=== PATIENT | female | born 1960 | race American Indian/Alaskan Native ===

== ENCOUNTER 2016-10-26 11:58 | Inpatient (IN) | payer MEDICARE ==
[2016-10-26 11:58] VITALS: BMI 30.1
[2016-10-26] MEDS ORDERED: Albuterol-Ipratrop 3 mg / 0.5 (3 ml) UD ONE ×3 (12:11→16:26)
[2016-10-26] MEDS ORDERED: Albuterol-Ipratrop 3 mg / 0.5 (3 ml) UD INH STA ×2 (12:21→14:26)
[2016-10-26 12:53] LABS: BASO % 0.8 % (0.0-2.0); EOS # 0.5 K/uL (0.0-0.7); EOS % 9.7 % (0.0-4.0); HEMATOCRIT 35.8 % (34.0-47.0); LYMPH # 1.6 K/uL (1.0-4.3); LYMPH % 31.9 % (20.0-40.0); MEAN CORPUSCULAR HGB CONC 32.6 g/dL (33.0-37.0); MEAN PLATELET VOLUME 6.6 fl (7.2-11.7); MONO # 0.8 K/uL (0.0-0.8); MONO % 15.2 % (0.0-10.0); NEUT # 2.1 K/uL (1.8-7.0); NEUT % 42.4 % (50.0-75.0); NRBC % 0.1 % (0.0-0.0); RED CELL DISTRIBUTION WIDTH 13.8 % (11.5-14.5)
[2016-10-26 13:06] LABS: ALB/GLOB RATIO 0.9 (1.0-2.1); ALKALINE PHOSPHATASE 108 U/L (38-126); ALT/SGPT 29 U/L (9-52); AST/SGOT 41 U/L (14-36); BILIRUBIN,TOTAL 0.6 mg/dl (0.2-1.3); BLOOD UREA NITROGEN 10 mg/dl (7-17); CARBON DIOXIDE 27 mmol/L (22-30); CHLORIDE 105 mmol/L (98-107); GFR AFRICAN-AMERICAN > 60; GLUCOSE,RANDOM 87 mg/dL (65-105); POTASSIUM 3.6 MMOL/L (3.6-5.0); SODIUM 143 mmol/l (132-148); TOTAL PROTEIN 8.9 G/DL (6.3-8.2)
[2016-10-26] MEDS ORDERED: Magnesium Sulfate 2 gm/50 ml 2 GM/50 ML BAG ONE (14:22)
[2016-10-26] MEDS ORDERED: Magnesium Sulfate 2 gm/50 ml 2 GM/50 ML BAG IVPB ONE (14:26)
--- NOTE | 2016-10-26 15:01 | RAD ---
HISTORY: SOB COMPARISON: Comparison is made to 05/23/2016. FINDINGS: LUNGS: No active pulmonary disease. PLEURA: No significant pleural effusion identified, no pneumothorax apparent. CARDIOVASCULAR: Normal. OSSEOUS STRUCTURES: No significant abnormalities. VISUALIZED UPPER ABDOMEN: Normal. OTHER FINDINGS: None. IMPRESSION: No active disease.
--- NOTE | 2016-10-26 15:19 | ED PDOC ---
HPI: SOB/CHF/COPD Time Seen by Provider: 10/26/16 12:20 Chief Complaint (Nursing): Shortness Of Breath Chief Complaint (Provider): Shortness Of Breath History Per: Patient History/Exam Limitations: no limitations Onset/Duration Of Symptoms: Days (x3 days) Current Symptoms Are (Timing): Still Present Additional Complaint(s): 56 y/o female with a past medical history of human immunodeficiency virus (HIV) and asthma who presents to the emergency department with a complaint of worsening shortness of breath, cough, wheezing, and chest tightness ongoing x3 days. Patient was referred to the ED from integrity specialist Dr. Yee. Reports taking antiretroviral medicine for HIV. Denies history of intubation for asthma , fever, hemoptysis, or syncope. Past Medical History Reviewed: Historical Data, Nursing Documentation, Vital Signs Vital Signs: Last Vital Signs Temp 98.3 F 10/26/16 12:11 Pulse 101 H 10/26/16 12:11 Resp 24 10/26/16 12:11 BP 130/53 L 10/26/16 12:11 Pulse Ox 100 10/26/16 12:30 - Medical History PMH: Anemia, Asthma, Bronchitis, COPD, HIV, Pneumonia Denies: Arthritis, CHF, HTN, Hypercholesterolemia, Hypothyroidism, Chronic Kidney Disease, Rheumatoid Arthritis - Surgical History Surgical History: Cholecystectomy (X1) - Family History Family History: States: Unknown Family Hx - Social History Current smoker - smoking cessation education provided: No Alcohol: None Drugs: Denies - Home Medications Home Medications: Ambulatory Orders Medication Instructions Recorded Albuterol 0.083% [Albuterol 0.083% 3 ml IH Q8H PRN 05/23/16 Inhal Lily (2.5 mg/3 ml) UD] Albuterol HFA [Ventolin HFA 90 2 puff IH Q4H PRN 05/23/16 mcg/actuation (8 g)] Dolutegravir Sodium [Tivicay] 50 mg PO DAILY 05/23/16 Emtricitabine/Tenofovir (Tdf) 1 tab PO DAILY 05/23/16 [Truvada 200 mg-300 mg Tablet] Ferrous Sulfate [Feosol] 325 mg PO DAILY 05/23/16 Montelukast [Singulair] 10 mg PO HS 05/23/16 Sulfamethoxazole/Trimethoprim 1 tab PO HS 05/23/16 [Bactrim DS Tab] Cholecalciferol [Vitamin D 1000 IU] 1,000 unit PO DAILY 10/26/16 Docusate [Colace] 100 mg PO HS 10/26/16 Fluticasone/Vilanterol [Breo 1 puff IH DAILY 10/26/16 Ellipta 100-25 Mcg INH] Oxcarbazepine [Trileptal] 150 mg PO BID 10/26/16 Promethazine [Phenergan Syrup] 10 mg PO Q6H PRN 10/26/16 Roflumilast [Daliresp] 500 mcg PO DAILY 10/26/16 - Allergies Allergies/Adverse Reactions: Allergies Allergy/AdvReac Type Severity Reaction Status Date / Time procaine HCl [From Novocain] Allergy RASH Verified 10/26/16 12:11 shrimp Allergy RASH Verified 10/26/16 12:11 Review of Systems Constitutional: Negative for: Fever Cardiovascular: Positive for: Other (Chest tightness) Respiratory: Positive for: Cough, Shortness of Breath, Wheezing. Negative for: Hemoptysis Neurological: Negative for: Other (Syncope) Physical Exam - Reviewed Nursing Documentation Reviewed: Yes Vital Signs Reviewed: Yes - Physical Exam Appears: Positive for: Non-toxic, No Acute Distress Head Exam: Positive for: ATRAUMATIC, NORMAL INSPECTION, NORMOCEPHALIC Skin: Positive for: Normal Color, Warm, Dry Cardiovascular/Chest: Positive for: Regular Rate, Rhythm, Other (Chest tightness ). Negative for: Murmur Respiratory: Positive for: Wheezing (b/l chest wheezing with chest tightness), Respiratory Distress (Mild). Negative for: Normal Breath Sounds, Accessory Muscle Use Neurologic/Psych: Positive for: Alert, Oriented, Other (Speaking in partial sentences. ) - Laboratory Results Result Diagrams: 10/26/16 12:35 10/26/16 12:35 - ECG O2 Sat by Pulse Oximetry: 99 (RA) Pulse Ox Interpretation: Normal Medical Decision Making Medical Decision Making: Time: 12:20 Initial impression: Shortness of breath Initial plan: --Electrocardiogram STAT --EKG-ED (EDNURTX) --Chest Portable --Duoneb 3 mg/0.5 mg (3ml) UD --Methylprednisolone 125 mg IVP --Peak Flow Pre/Post TX --Revaluation Time: 14:26 --Upon reevaluation, patient remains with wheeze and poor air movement. Case discussed with Dr. Yee (Pulmonology) who recommends admission, therefore, patient will be admitted. --Admit to hospital routine: Observation in telemetry for asthma exacerbation with respiratory failure under ([facility]) Dr. Bambi Ware. --Duoneb 3 mg/0.5 mg (3ml) UD --Magnesium Sulfate 2 gm in 50 ml IVPB --Blood work is unremarkable. --Chest x-ray shows no acute infiltrate. FINDINGS: LUNGS: No active pulmonary disease. PLEURA: No significant pleural effusion identified, no pneumothorax apparent. CARDIOVASCULAR: Normal. OSSEOUS STRUCTURES: No significant abnormalities. VISUALIZED UPPER ABDOMEN: Normal. OTHER FINDINGS: None. IMPRESSION: No active disease. Scribe Attestation: Documented by Amanda Mccollum, acting as a scribe for Jhonny Bear MD. Provider Scribe Attestation: All medical record entries made by the Scribe were at my direction and personally dictated by me. I have reviewed the chart and agree that the record accurately reflects my personal performance of the history, physical exam, medical decision making, and the department course for this patient. I have also personally directed, reviewed, and agree with the discharge instructions and disposition.
[2016-10-26] MEDS ORDERED: Albuterol 0.083% Inhal Sol (2.5 mg/3 mL) UD INH PRN ×2 (15:31→15:45)
[2016-10-26] MEDS ORDERED: Albuterol-Ipratrop 3 mg / 0.5 (3 ml) UD IH PRN (15:31)
[2016-10-26] MEDS ORDERED: Promethazine 6.25 MG/5 ML CUP PO PRN (15:52)
--- NOTE | 2016-10-26 15:53 | CP.PCM.HP ---
History of Present Illness - History of Present Illness History of Present Illness: 55 year old female with PMH of asthma, AIDS (last CD4: 13 in 09/19/16), anemia presents to ED, sent by terminal gauger supervisor Dr. Yee from his office. She is complaining of 4 days of dyspnea and wheezing. She is unable to speak in full sentences. Endorses she has exacerbations with severe changes in weather. She has a/c at home but had symptoms despite its use. States she uses oxygen at night, helps with her SOB. Seen by Dr. Yee today and immediately sent to ED. She denies sick contacts. ROS: denies h/a, chest pain, abdominal pain, n/v/d/c, dysuria, urinary frequency , pedal edema. PMH: Asthma, AIDS, Anemia Medications: reconciled Allergies: reviewed Surgical hx: , left partial? oophorectomy Social: denies etoh use, and smoking - second hand smoke from her mother PMD: Dr. Boyer [employer] Driver: Dr. Yee ED COURSE: VS: T:98.3. HR101, 130/53, R24, SPO2 99% on room air, sx improved with O2 via NC CBC: anemia CMP WNL Magnesium 2gm Solumedrol 125mg Duonebs x 2 CXR negative. ekg Present on Admission - Present on Admission Any Indicators Present on Admission: No Review of Systems - Review of Systems All systems: reviewed and no additional remarkable complaints except Past Patient History - Infectious Disease Hx of Infectious Diseases: None - Past Medical History & Family History Past Medical History?: Yes - Past Social History Alcohol: None Drugs: Denies - CARDIAC Hx Congestive Heart Failure: No Hx Hypercholesterolemia: No Hx Hypertension: No - PULMONARY Hx Asthma: Yes Hx Bronchitis: Yes Hx Chronic Obstructive Pulmonary Disease (COPD): Yes Hx Pneumonia: Yes - NEUROLOGICAL Hx Neurological Disorder: Yes HX Cerebrovascular Accident: No Other/Comment: LEFT SIDE FACE NUMBNESS - HEENT Hx HEENT Problems: No - RENAL Hx Chronic Kidney Disease: No - ENDOCRINE/METABOLIC Hx Hypothyroidism: No - HEMATOLOGICAL/ONCOLOGICAL Hx Anemia: Yes Hx Human Immunodeficiency Virus (HIV): Yes - INTEGUMENTARY Hx Dermatological Problems: Yes Other/Comment: SKIN DISCOLORATION BOTH ARM - MUSCULOSKELETAL/RHEUMATOLOGICAL Hx Arthritis: No Hx Rheumatoid Arthritis: No - GASTROINTESTINAL Hx Gastrointestinal Disorders: No - GENITOURINARY/GYNECOLOGICAL Hx Genitourinary Disorders: No - PSYCHIATRIC Hx Psychophysiologic Disorder: No Hx Substance Use: No - SURGICAL HISTORY Hx Cholecystectomy: Yes (X1) - ANESTHESIA Hx Anesthesia: Yes Hx Anesthesia Reactions: No Hx Malignant Hyperthermia: No Meds Allergies/Adverse Reactions: Allergies Allergy/AdvReac Type Severity Reaction Status Date / Time procaine HCl [From Novocain] Allergy RASH Verified 10/26/16 12:11 shrimp Allergy RASH Verified 10/26/16 12:11 Physical Exam - Constitutional Appears: In Acute Distress (audible wheezing, +severe cough) - Head Exam Head Exam: NORMAL INSPECTION - Eye Exam Eye Exam: EOMI - ENT Exam ENT Exam: Mucous Membranes Moist - Respiratory Exam Respiratory Exam: Accessory Muscle Use (mild suprasternal retractions), Decreased Breath Sounds, Wheezes (diffuse bilaterally ), Respiratory Distress, Stridor Additional comments: cough wheezing audible upon entry to room - Cardiovascular Exam Cardiovascular Exam: REGULAR RHYTHM, +S1, +S2 Additional comments: HR 88 - GI/Abdominal Exam GI & Abdominal Exam: Normal Bowel Sounds, Soft. absent: Tenderness - Rectal Exam Rectal Exam: Deferred - Extremities Exam Extremities exam: Negative for: calf tenderness, pedal edema - Neurological Exam Neurological exam: Alert, CN II-XII Intact, Oriented x3 - Psychiatric Exam Psychiatric exam: Normal Affect, Normal Mood - Skin Skin Exam: Dry, Intact, Normal Color Additional comments: no cyanosis Results - Vital Signs Recent Vital Signs: Last Vital Signs Temp 98.3 F 10/26/16 12:11 Pulse 101 H 10/26/16 12:11 Resp 24 10/26/16 12:11 BP 130/53 L 10/26/16 12:11 Pulse Ox 99 10/26/16 15:40 - Labs Result Diagrams: 10/26/16 12:35 10/26/16 12:35 Assessment & Plan (1) Asthma exacerbation Status: Acute (2) HIV (human immunodeficiency virus infection) Status: Chronic (3) DVT prophylaxis Status: Acute - Assessment and Plan (Free Text) Assessment: 56 year old female admitted with severe asthma exacerbation, unable to speak in full sentences, audible wheeze upon entering room, tachypneic, +severe cough. Needs close monitoring of respiratory status. Severe asthma exacerbation -unable to speak full sentences, o2 sat 99% on room air, monitor respiratory status closely -oxygen PRN -duoneb q4 -consider albuterol prn wheezing -iv solumedrol 60mg q12, consider increasing tomorrow. -phenergan for cough -follow up: recommendations from pulmonology Anemia -mild, chronic -feosol 325 mg PO daily HIV Patient has hx of AIDS, CD4 count improving on current medications, now HIV Absolute CD4 count: 244 absolute lymphocytes- 1859 Viral Load: <1.30 continue with home regimen: Truvada, tivicay, bactrim DVT prophylaxis -lovenox SC 40mg
[2016-10-26] MEDS: Emtricitabine-Tenofovir 200 mg-300 mg Tab PO SCH (16:26)
[2016-10-26] MEDS: Albuterol-Ipratrop 3 mg / 0.5 (3 ml) UD IH SCH ×2 (16:36→19:33)
[2016-10-26] MEDS ORDERED: Promethazine 12.5 mg/10 ml Syrup PO ONE (19:11)
--- NOTE | 2016-10-26 19:32 | CARD ---
APPROVED REPORT EKG Measurement Heart [id number] <Conclusion> Normal sinus rhythm Normal ECG
[2016-10-26] MEDS: methylPREDNISolone 60 MG in Sodium Chloride 0.9% 50 ML IVPB SCH (20:08)
[2016-10-26] MEDS ORDERED: Pneumococcal 23-Valent Vaccine IM ONE (21:30)
[2016-10-26] MEDS: Tmp-Smz 800 mg-160 mg DS Tab PO SCH (22:05)
[2016-10-27] MEDS: Albuterol-Ipratrop 3 mg / 0.5 (3 ml) UD IH SCH ×6 (00:43→19:05)
[2016-10-27] MEDS: Promethazine 6.25 MG/5 ML CUP PO PRN ×2 (04:06→16:17)
[2016-10-27 04:45] LABS: HEMATOCRIT 34.8 % (34.0-47.0); MEAN CORPUSCULAR HEMOGLOBIN 29.1 pg (27.0-31.0); MEAN CORPUSCULAR HGB CONC 32.7 g/dL (33.0-37.0); RED CELL DISTRIBUTION WIDTH 13.8 % (11.5-14.5); WHITE BLOOD COUNT 4.6 K/uL (4.8-10.8)
[2016-10-27 04:59] LABS: BLOOD UREA NITROGEN 10 mg/dl (7-17); CALCIUM 9.1 mg/dL (8.4-10.2); CARBON DIOXIDE 25 mmol/L (22-30); CHLORIDE 106 mmol/L (98-107); GFR AFRICAN-AMERICAN > 60; GLUCOSE,RANDOM 156 mg/dL (65-105); POTASSIUM 3.8 MMOL/L (3.6-5.0); SODIUM 143 mmol/l (132-148)
[2016-10-27] MEDS: Emtricitabine-Tenofovir 200 mg-300 mg Tab PO SCH (08:21)
[2016-10-27] MEDS: Enoxaparin 40 mg Syringe SC SCH (08:22)
[2016-10-27] MEDS: methylPREDNISolone 60 MG in Sodium Chloride 0.9% 50 ML IVPB SCH ×2 (08:26→16:21)
--- NOTE | 2016-10-27 08:55 | CP.PCM.PN ---
Subjective - Date & Time of Evaluation Date of Evaluation: 10/27/16 Time of Evaluation: 08:54 - Subjective Subjective: Patient is seen and examined at bedside. No noted acute overnight events. Patient noted to haven Nasal Canula with O2 @2L, but noted to have audible wheezing. Patient however states feels better when compared to yesterday. Continued dry cough, but no fever/chills,nausea/vomiting and chest pain. Patient currently not ambulating, and tolerating PO diet. Objective - Vital Signs/Intake and Output Vital Signs (last 24 hours): Temp Pulse Resp BP Pulse Ox 98.3 F 99 H 18 117/72 99 10/27/16 08:01 10/27/16 08:01 10/27/16 08:01 10/27/16 08:01 10/27/16 08:01 Intake and Output: 10/27/16 10/27/16 06:59 18:59 Intake Total 340 Output Total 300 Balance 40 - Medications Medications: Current Medications Albuterol Sulfate (Albuterol 0.083% Inhal Lily (2.5 Mg/3 Ml) Ud) 2.5 mg INH RQ6 PRN PRN Reason: Shortness of Breath Albuterol/Ipratropium (Duoneb 3 Mg/0.5 Mg (3 Ml) Ud) 3 ml IH RQ4 ON LICENSE OF [facility] Last Admin: 10/27/16 07:08 Dose: 3 ml Docusate Sodium (Colace) 100 mg PO [facility] Last Admin: 10/26/16 21:43 Dose: 100 mg Dolutegravir Sodium (Tivicay) 50 mg PO DAILY ON LICENSE OF [facility] Emtricitabine/Tenofovir (Truvada 200 Mg-300 Mg) 1 tab PO DAILY ON [facility] OF [facility] Last Admin: 10/27/16 08:21 Dose: 1 tab Enoxaparin Sodium (Lovenox) 40 mg SC DAILY ON LICENSE OF [facility] PRN Reason: Protocol Last Admin: 10/27/16 08:22 Dose: 40 mg Ferrous Sulfate (Feosol) 325 mg PO DAILY ON LICENSE OF [facility] Methylprednisolone 60 mg/ (Sodium Chloride) 50 mls @ 100 mls/hr IVPB Q12 ON LICENSE OF [facility] Last Admin: 10/27/16 08:26 Dose: 100 mls/hr Montelukast Sodium (Singulair) 10 mg PO [facility] Last Admin: 10/26/16 21:43 Dose: 10 mg Oxcarbazepine (Trileptal) 150 mg PO BID ON LICENSE OF [facility] Last Admin: 10/27/16 08:21 Dose: 150 mg Promethazine HCl (Phenergan Syrup) 12.5 mg PO Q6H PRN PRN Reason: Cough Last Admin: 10/27/16 04:06 Dose: 12.5 mg Roflumilast (Daliresp) 500 mcg PO DAILY ON LICENSE OF [facility] Trimethoprim/Sulfamethoxazole (Bactrim Ds Tab) 1 tab PO HS ON LICENSE OF [facility] Last Admin: 10/26/16 22:05 Dose: 1 tab - Labs Labs: 10/27/16 04:05 10/27/16 04:05 - Constitutional Appears: No Acute Distress - ENT Exam ENT Exam: Mucous Membranes Dry - Respiratory Exam Respiratory Exam: Wheezes Additional comments: diffuse b/.l wheezing appreciated. - Cardiovascular Exam Cardiovascular Exam: +S1, +S2 - GI/Abdominal Exam GI & Abdominal Exam: Soft - Extremities Exam Extremities Exam: Normal Inspection - Back Exam Back Exam: absent: CVA tenderness (L), CVA tenderness (R) - Neurological Exam Neurological Exam: Alert, Awake - Psychiatric Exam Psychiatric exam: Normal Affect, Normal Mood - Skin Skin Exam: Dry, Intact, Normal Color, Warm Assessment and Plan - Assessment and Plan (Free Text) Assessment: 56 year old female admitted with severe asthma exacerbation,audible wheeze upon entering room, tachypneic, +severe cough. Needs close monitoring of respiratory status. Severe asthma exacerbation -tele monitoring -o2 sat 99% on room air, monitor respiratory status closely -oxygen PRN -duoneb q4 SAMMIE -albuterol prn wheezing -iv solumedrol 60mg q12 increased to q8 -phenergan for cough -follow up: recommendations from pulmonology -due to low CD4 count and present respiratory status: will start Zithromax regimen PO daily Anemia -mild, chronic -feosol 325 mg PO daily HIV Patient has hx of AIDS, CD4 count improving on current medications, now HIV Absolute CD4 count: 244 absolute lymphocytes- 1859 Viral Load: <1.30 continue with home regimen: Truvada, tivicay, bactrim DVT prophylaxis -lovenox SC 40mg
[2016-10-27] MEDS: Albuterol 0.083% Inhal Sol (2.5 mg/3 mL) UD INH PRN ×2 (09:29→16:25)
[2016-10-27] MEDS: THEOPHYLLINE 400 MG T24(UNIPHYL) PO SCH (14:13)
[2016-10-27] MEDS: Azithromycin 500 MG in Sodium Chloride 0.9% 250 ML IVPB SCH (14:15)
[2016-10-27] MEDS ORDERED: Acetylcysteine 20% Inhal Soln (4ml) INH ONE (15:45)
[2016-10-27] MEDS ORDERED: Albuterol-Ipratrop 3 mg / 0.5 (3 ml) UD INH STA (15:46)
--- NOTE | 2016-10-27 16:16 | CON ---
DATE: 10/27/2016 The patient is a 56-year-old female who was referred for pulmonary evaluation by the [facility] team. She was seen in the office by me, on the morning of admission, and referred to the Emergency R oom for acute exacerbation of asthma, possible pneumonia with bronchiectasis. PAST MEDICAL HISTORY: She has a past medical history of HIV infection, asthma, bronchiectasis, recur rent pulmonary infections, pneumonia, and anemia. FAMILY HISTORY: Noncontributory. SOCIAL HISTORY: She does not smoke or drink. REVIEW OF SYSTEMS: Remarkable for shortness of breath and exercise intolerance. She follows up by [facility]. PHYSICAL EXAMINATION: GENERAL: The patient is alert, oriented, appears to be in moderate distress because of cough and alice rtness of breath. VITAL SIGNS: Remarkable for blood pressure of 130/50, pulse of 105, respiratory rate 24 per minute, O2 sat 99% on room air, and she is afebrile. SKIN: Shows fair turgor. HEENT: Pupils equal and react to light and accommodation. Mouth shows poor hygiene with mucus engor gement of pharynx. NECK: JVP flat. LUNGS: Shows coarse bilateral rales with dullness at both bases. HEART: S1, S2. ABDOMEN: Soft, nontender, no organomegaly. EXTREMITIES: Shows no edema or cyanosis. CENTRAL NERVOUS SYSTEM: Grossly intact. LABORATORY DATA: Remarkable for WBC of 5.0, hemoglobin 11.7, platelet count 381,000. Sodium 143, po tassium 3.6, BUN of 10, creatinine 0.8. Sputum cultures pending. ABG is pending. Chest x-ray is remarkable for no active cardiopulmonary pathology. IMPRESSION: Acute exacerbation of asthma and bronchiectasis. One has to rule out superimposed pneum onia, mucous plugging of airways, history of human immunodeficiency virus infection. PLAN: Continue IV antibiotics, IV steroids, aerosolized bronchodilators. We will give Mucomyst to h elp expectorate specimen. Would also give oxygen p.r.n. Chest PT ordered. Would obtain CT scan of the chest with no contrast, to rule out superimposed pulmonary infection and worsening of bronchiecta sis. We will continue to follow with you. Aminophylline already added to therapy to help improve pu lmonary function. Alen Yee MD cc: [id number] TT: 10/27/2016 16:15:35 Confirmation # [id number] Dictation # [id number]
[2016-10-27 16:20] LABS: ABG ALLEN TEST YES; ARTERIAL BLOOD GAS HCO3 20.9 mmol/L (21-28); ARTERIAL BLOOD GAS O2 CAPACITY 15.8 mL/dL (16-24); ARTERIAL BLOOD GAS O2 CONTENT 15.7 ML/dL (15-23); ARTERIAL BLOOD GAS PH 7.35 (7.35-7.45); ARTERIAL BLOOD GAS PO2 127 mm/Hg (80-100); ARTERIAL BLOOD HGB O2 SAT 96.4 % (95.0-98.0); CARBOXYHEMOGLOBIN 1.1 % (0.5-1.5); HHB 0.6 % (0.0-5.0); METHEMOGLOBIN 1.9 % (0.0-3.0)
[2016-10-27] MEDS: Acetylcysteine 20% Inhal Soln (4ml) INH SCH (19:05)
[2016-10-27] MEDS: Tmp-Smz 800 mg-160 mg DS Tab PO SCH (21:21)
[2016-10-28] MEDS: methylPREDNISolone 60 MG in Sodium Chloride 0.9% 50 ML IVPB SCH ×3 (00:43→16:17)
[2016-10-28] MEDS: Albuterol-Ipratrop 3 mg / 0.5 (3 ml) UD IH SCH ×6 (00:47→19:17)
--- NOTE | 2016-10-28 07:17 | CP.PCM.PN ---
Subjective - Date & Time of Evaluation Date of Evaluation: 10/28/16 Time of Evaluation: 07:40 - Subjective Subjective: No acute events overnight. Patient seen and examined bedside. No longer audible wheezing upon entry to pts room. She is sitting with head of bed elevated. Improved breathing, no longer dyspneic. Continues to have cough, nonproductive. Started on Theophylline by pulmonary with noted improvement of respirations. Oxygen is still required to make breathing easier. Chest CT today. Objective - Vital Signs/Intake and Output Vital Signs (last 24 hours): Temp Pulse Resp BP Pulse Ox 97.9 F 99 H 19 123/76 99 10/28/16 05:00 10/28/16 05:00 10/28/16 05:00 10/28/16 05:00 10/28/16 05:00 - Medications Medications: Current Medications Acetylcysteine (Acetylcysteine 20%) 2 ml INH RBID [facility] Last Admin: 10/27/16 19:05 Dose: 2 ml Albuterol Sulfate (Albuterol 0.083% Inhal Lily (2.5 Mg/3 Ml) Ud) 2.5 mg INH RQ6 PRN PRN Reason: Shortness of Breath Last Admin: 10/27/16 16:25 Dose: 2.5 mg Albuterol/Ipratropium (Duoneb 3 Mg/0.5 Mg (3 Ml) Ud) 3 ml IH RQ4 [facility] Last Admin: 10/28/16 04:06 Dose: 3 ml Docusate Sodium (Colace) 100 mg PO HS [facility] Last Admin: 10/27/16 21:21 Dose: 100 mg Dolutegravir Sodium (Tivicay) 50 mg PO DAILY [facility] Last Admin: 10/27/16 10:41 Dose: 50 mg Emtricitabine/Tenofovir (Truvada 200 Mg-300 Mg) 1 tab PO DAILY [facility] Last Admin: 10/27/16 08:21 Dose: 1 tab Enoxaparin Sodium (Lovenox) 40 mg SC DAILY [facility]MIE PRN Reason: Protocol Last Admin: 10/27/16 08:22 Dose: 40 mg Ferrous Sulfate (Feosol) 325 mg PO DAILY [facility] Last Admin: 10/27/16 10:42 Dose: 325 mg Methylprednisolone 60 mg/ (Sodium Chloride) 50 mls @ 100 mls/hr IVPB Q8 [facility] Last Admin: 10/28/16 00:43 Dose: 100 mls/hr Azithromycin 500 mg/ Sodium (Chloride) 250 mls @ 250 mls/hr IVPB DAILY [facility] Last Admin: 10/27/16 14:15 Dose: 250 mls/hr Montelukast Sodium (Singulair) 10 mg PO HS [facility] Last Admin: 10/27/16 21:21 Dose: 10 mg Oxcarbazepine (Trileptal) 150 mg PO BID [facility] Last Admin: 10/27/16 17:32 Dose: 150 mg Promethazine HCl (Phenergan Syrup) 12.5 mg PO Q6H PRN PRN Reason: Cough Last Admin: 10/27/16 16:17 Dose: 12.5 mg Roflumilast (Daliresp) 500 mcg PO DAILY [facility] Last Admin: 10/27/16 13:05 Dose: 500 mcg Theophylline (Uniphyl) 400 mg PO DAILY [facility] Last Admin: 10/27/16 14:13 Dose: 400 mg Trimethoprim/Sulfamethoxazole (Bactrim Ds Tab) 1 tab PO [facility] Last Admin: 10/27/16 21:21 Dose: 1 tab - Constitutional Appears: Non-toxic, In Acute Distress (secondary to coughing) - Head Exam Head Exam: NORMAL INSPECTION - Eye Exam Eye Exam: Normal appearance - ENT Exam ENT Exam: Mucous Membranes Moist - Respiratory Exam Respiratory Exam: Decreased Breath Sounds (bases), Rales (coarse ), Wheezes ( diffuse wheezing). absent: Accessory Muscle Use - Cardiovascular Exam Cardiovascular Exam: REGULAR RHYTHM, +S1, +S2 - GI/Abdominal Exam GI & Abdominal Exam: Soft, Normal Bowel Sounds. absent: Tenderness - Neurological Exam Neurological Exam: Alert, Awake, CN II-XII Intact, Oriented x3 - Psychiatric Exam Psychiatric exam: Normal Affect, Normal Mood - Skin Skin Exam: Dry, Intact Assessment and Plan (1) Asthma exacerbation Status: Acute (2) DVT prophylaxis Status: Acute - Assessment and Plan (Free Text) Assessment: 56 year old female admitted with severe asthma exacerbation. Wheezing no longer audible upon entry into pts room. Cough persists but improved. O2 via NC on for improved respirations as per patient. Severe asthma exacerbation with bronchiectasis in the setting of HIV disease improved. follow up chest CT continue present management: * zithromax (day2) * IV solumedrol 60mg q 8 * duonebs q4 hrs * theophylline * phenergan * acetylcysteine * albuterol prn * oxygen prn * iv solumedrol 60mg q8 * daliresp started 10/27 Anemia -mild, chronic -feosol 325 mg PO daily HIV Patient has hx of AIDS, CD4 count improving on current medications, now HIV Absolute CD4 count: 244 absolute lymphocytes- 1859 Viral Load: <1.30 continue with home regimen: Truvada, tivicay, bactrim DVT prophylaxis -lovenox SC 40mg
[2016-10-28] MEDS: Acetylcysteine 20% Inhal Soln (4ml) INH SCH ×2 (07:31→19:17)
[2016-10-28] MEDS: Enoxaparin 40 mg Syringe SC SCH (08:35)
[2016-10-28] MEDS: Promethazine 6.25 MG/5 ML CUP PO PRN (08:35)
[2016-10-28] MEDS: Azithromycin 500 MG in Sodium Chloride 0.9% 250 ML IVPB SCH (08:37)
--- NOTE | 2016-10-28 10:57 | CP.PCM.PN ---
Subjective - Date & Time of Evaluation Date of Evaluation: 10/28/16 Time of Evaluation: 10:57 - Subjective Subjective: STILL COUGHING AND DYSPNEIC ON EXERTION UNABLE TO EXPECTORATE SPUTUM DENIES CHEST PAINS WANTS TO GO HOME Objective - Vital Signs/Intake and Output Vital Signs (last 24 hours): Temp Pulse Resp BP Pulse Ox 98.2 F 108 H 22 125/73 95 10/28/16 07:57 10/28/16 07:57 10/28/16 07:57 10/28/16 07:57 10/28/16 07:57 - Medications Medications: Current Medications Acetylcysteine (Acetylcysteine 20%) 2 ml INH RBID [facility] Last Admin: 10/28/16 07:31 Dose: 2 ml Albuterol Sulfate (Albuterol 0.083% Inhal Lily (2.5 Mg/3 Ml) Ud) 2.5 mg INH RQ6 PRN PRN Reason: Shortness of Breath Last Admin: 10/27/16 16:25 Dose: 2.5 mg Albuterol/Ipratropium (Duoneb 3 Mg/0.5 Mg (3 Ml) Ud) 3 ml IH RQ4 [facility] Last Admin: 10/28/16 07:31 Dose: 3 ml Docusate Sodium (Colace) 100 mg PO HS [facility] Last Admin: 10/27/16 21:21 Dose: 100 mg Dolutegravir Sodium (Tivicay) 50 mg PO DAILY [facility] Last Admin: 10/27/16 10:41 Dose: 50 mg Emtricitabine/Tenofovir (Truvada 200 Mg-300 Mg) 1 tab PO DAILY [facility] Last Admin: 10/27/16 08:21 Dose: 1 tab Enoxaparin Sodium (Lovenox) 40 mg SC DAILY [facility] PRN Reason: Protocol Last Admin: 10/28/16 08:35 Dose: 40 mg Ferrous Sulfate (Feosol) 325 mg PO DAILY [facility] Last Admin: 10/28/16 08:35 Dose: 325 mg Methylprednisolone 60 mg/ (Sodium Chloride) 50 mls @ 100 mls/hr IVPB Q8 [facility] Last Admin: 10/28/16 08:36 Dose: 100 mls/hr Azithromycin 500 mg/ Sodium (Chloride) 250 mls @ 250 mls/hr IVPB DAILY [facility] Last Admin: 10/28/16 08:37 Dose: 250 mls/hr Montelukast Sodium (Singulair) 10 mg PO HS [facility] Last Admin: 10/27/16 21:21 Dose: 10 mg Oxcarbazepine (Trileptal) 150 mg PO BID [facility] Last Admin: 10/27/16 17:32 Dose: 150 mg Promethazine HCl (Phenergan Syrup) 12.5 mg PO Q6H PRN PRN Reason: Cough Last Admin: 10/28/16 08:35 Dose: 12.5 mg Roflumilast (Daliresp) 500 mcg PO DAILY [facility] Last Admin: 10/28/16 08:34 Dose: 500 mcg Theophylline (Uniphyl) 400 mg PO DAILY [facility] Last Admin: 10/27/16 14:13 Dose: 400 mg Trimethoprim/Sulfamethoxazole (Bactrim Ds Tab) 1 tab PO [facility] Last Admin: 10/27/16 21:21 Dose: 1 tab - Constitutional Appears: Chronically Ill - Head Exam Head Exam: ATRAUMATIC, NORMAL INSPECTION, NORMOCEPHALIC - Eye Exam Eye Exam: EOMI, Normal appearance, PERRL Pupil Exam: NORMAL ACCOMODATION, PERRL - ENT Exam ENT Exam: Mucous Membranes Moist, Normal Exam - Neck Exam Neck Exam: Full ROM, Normal Inspection. absent: Lymphadenopathy - Respiratory Exam Respiratory Exam: Decreased Breath Sounds, Prolonged Expiratory Phase, Rales, Wheezes, NORMAL BREATHING PATTERN - Cardiovascular Exam Cardiovascular Exam: REGULAR RHYTHM, +S1, +S2. absent: Murmur - GI/Abdominal Exam GI & Abdominal Exam: Soft, Normal Bowel Sounds. absent: Tenderness - Rectal Exam Rectal Exam: NORMAL INSPECTION - Extremities Exam Extremities Exam: Full ROM, Normal Capillary Refill, Normal Inspection. absent : Joint Swelling, Pedal Edema - Back Exam Back Exam: NORMAL INSPECTION - Neurological Exam Neurological Exam: Alert, Awake, CN II-XII Intact, Normal Gait, Oriented x3 - Psychiatric Exam Psychiatric exam: Normal Affect, Normal Mood - Skin Skin Exam: Dry, Intact, Normal Color, Warm Assessment and Plan - Assessment and Plan (Free Text) Assessment: ACUTE EXAC OF ASTHMA BRONCHIECTASIS MUCUS PLUGGING OF AIRWAYS HIV DZ Plan: CONTINUE PRESENT RX GIVE COUGH SYRUP AROUND THE CLOCK
--- NOTE | 2016-10-28 14:34 | CT ---
PROCEDURE: CT Chest without contrast HISTORY: PNEUMONIA/BRONCHIECTASIS COMPARISON: Comparison made with prior study 03/18/2016 TECHNIQUE: Contiguous axial images were obtained through the chest without intravenous contrast enhancement. Sagittal and coronal reconstructions were performed. Radiation dose (DLP): 544.72 mGy-cm. This CT exam was performed using one or more of the following dose reduction techniques: Automated exposure control, adjustment of the mA and/or kV according to patient size, and/or use of iterative reconstruction technique. FINDINGS: LUNGS: Previously noted bilateral subsegmental infiltrate changes within the lower lobes improved though there does appear to be some minor linear atelectasis/ scarring changes on in these locations. Mild bronchial wall thickening most pronounced in the lower lung amado as well. MEDIASTINUM: Unremarkable thoracic aorta. No aneurysm. Normal sized heart. Main pulmonary artery unremarkable. No vascular congestion. No lymphadenopathy. . Small hiatal hernia with wall thickening of distal esophagus likely due to protrusion gastric mucosa. Possibility of esophagitis not excluded. Complex nodule left lobe thyroid gland less well seen compared to prior contrast enhanced CT scan. PLEURA: As above. No evidence of pleural effusion or pneumothorax. BONES: Minor multilevel degenerative spondylosis of the thoracic spine. No acute compression fractures no retropulsed fragments. No obvious suspicious lytic or blastic lesions. Remaining osseous structures appear intact. Tiny 2 mm subpleural nodule right middle lobe along the anterolateral convexity best seen on axial image number 60 unchanged. Very minimal right apical pleural thickening and what appears represent some adjacent parenchymal minor scarring UPPER ABDOMEN: Status post cholecystectomy. . OTHER FINDINGS: None. IMPRESSION: Interval resolution previously noted subsegmental infiltrates in the lower lobes though there are some residual areas of chronic linear atelectasis/ scarring. Mild bronchial wall thickening in the lower lung amado. Stable appearing 2 mm nodule right middle lobe. Complex nodule left lobe thyroid gland less well seen compared prior exam. See above discussion for additional findings and details.
[2016-10-28] MEDS: Promethazine/Cod 6.25mg-10mg/5ml Syr UD PO SCH (16:23)
[2016-10-28] MEDS: Emtricitabine-Tenofovir 200 mg-300 mg Tab PO SCH (16:26)
[2016-10-28] MEDS: THEOPHYLLINE 400 MG T24(UNIPHYL) PO SCH (16:27)
[2016-10-28] MEDS: Tmp-Smz 800 mg-160 mg DS Tab PO SCH (21:27)
[2016-10-29] MEDS: Albuterol-Ipratrop 3 mg / 0.5 (3 ml) UD IH SCH ×7 (00:02→23:45)
[2016-10-29] MEDS: methylPREDNISolone 60 MG in Sodium Chloride 0.9% 50 ML IVPB SCH (00:30)
[2016-10-29] MEDS: Promethazine/Cod 6.25mg-10mg/5ml Syr UD PO SCH ×5 (00:37→21:26)
[2016-10-29 06:00] LABS: HEMATOCRIT 33.4 % (34.0-47.0); MEAN CELL VOLUME 89.4 fl (81.0-99.0); MEAN CORPUSCULAR HGB CONC 32.4 g/dL (33.0-37.0); MEAN PLATELET VOLUME 6.6 fl (7.2-11.7); MONO # 0.4 K/uL (0.0-0.8); MONO % 3.3 % (0.0-10.0); NEUT # 9.9 K/uL (1.8-7.0); NEUT % 87.7 % (50.0-75.0); PLATELET COUNT 396 K/uL (130-400); RED CELL DISTRIBUTION WIDTH 13.9 % (11.5-14.5); WHITE BLOOD COUNT 11.3 K/uL (4.8-10.8)
--- NOTE | 2016-10-29 06:29 | CP.PCM.PN ---
Subjective - Date & Time of Evaluation Date of Evaluation: 10/29/16 Time of Evaluation: 07:10 - Subjective Subjective: No acute events overnight. Symptoms improved. Continues to cough, however nonproductive. Oxygen is in place via NC for breathing comfort, O2 sat has been >95%. Would like to go home already. Will discuss with Dr. Yee No chest pain, dyspnea, abdominal pain, nausea, vomiting. Objective - Vital Signs/Intake and Output Vital Signs (last 24 hours): Temp Pulse Resp BP Pulse Ox 97.6 F 89 20 125/79 95 10/29/16 05:18 10/29/16 05:18 10/29/16 05:18 10/29/16 05:18 10/29/16 05:18 Intake and Output: 10/28/16 10/29/16 18:59 06:59 Intake Total 1350 Output Total 4 Balance 1346 - Medications Medications: Current Medications Acetylcysteine (Acetylcysteine 20%) 2 ml INH RBID [facility] Last Admin: 10/28/16 19:17 Dose: 2 ml Albuterol Sulfate (Albuterol 0.083% Inhal Lily (2.5 Mg/3 Ml) Ud) 2.5 mg INH RQ6 PRN PRN Reason: Shortness of Breath Last Admin: 10/27/16 16:25 Dose: 2.5 mg Albuterol/Ipratropium (Duoneb 3 Mg/0.5 Mg (3 Ml) Ud) 3 ml IH RQ4 [facility] Last Admin: 10/29/16 05:15 Dose: 3 ml Docusate Sodium (Colace) 100 mg PO HS [facility] Last Admin: 10/28/16 21:28 Dose: 100 mg Dolutegravir Sodium (Tivicay) 50 mg PO DAILY [facility] Last Admin: 10/28/16 16:25 Dose: 50 mg Emtricitabine/Tenofovir (Truvada 200 Mg-300 Mg) 1 tab PO DAILY [facility] Last Admin: 10/28/16 16:26 Dose: 1 tab Enoxaparin Sodium (Lovenox) 40 mg SC DAILY [facility] PRN Reason: Protocol Last Admin: 10/28/16 08:35 Dose: 40 mg Ferrous Sulfate (Feosol) 325 mg PO DAILY [facility] Last Admin: 10/28/16 08:35 Dose: 325 mg Methylprednisolone 60 mg/ (Sodium Chloride) 50 mls @ 100 mls/hr IVPB Q8 [facility] Last Admin: 10/29/16 00:30 Dose: 100 mls/hr Azithromycin 500 mg/ Sodium (Chloride) 250 mls @ 250 mls/hr IVPB DAILY [facility] Last Admin: 10/28/16 08:37 Dose: 250 mls/hr Montelukast Sodium (Singulair) 10 mg PO HS [facility] Last Admin: 10/28/16 21:29 Dose: 10 mg Oxcarbazepine (Trileptal) 150 mg PO BID [facility] Last Admin: 10/28/16 16:26 Dose: 150 mg Promethazine HCl/Codeine (Phenergan/Codeine Oral Syrup) 10 ml PO Q6 [facility] Last Admin: 10/29/16 05:16 Dose: 10 ml Roflumilast (Daliresp) 500 mcg PO DAILY [facility] Last Admin: 10/28/16 08:34 Dose: 500 mcg Theophylline (Uniphyl) 400 mg PO DAILY [facility] Last Admin: 10/28/16 16:27 Dose: 400 mg Trimethoprim/Sulfamethoxazole (Bactrim Ds Tab) 1 tab PO [facility] Last Admin: 10/28/16 21:27 Dose: 1 tab - Constitutional Appears: Non-toxic (+cough) - Eye Exam Eye Exam: Normal appearance - Respiratory Exam Respiratory Exam: Rales, Wheezes, NORMAL BREATHING PATTERN. absent: Prolonged Expiratory Phase Additional comments: cough+ - Cardiovascular Exam Cardiovascular Exam: REGULAR RHYTHM, +S1, +S2 - GI/Abdominal Exam GI & Abdominal Exam: Soft, Normal Bowel Sounds. absent: Tenderness - Extremities Exam Extremities Exam: absent: Calf Tenderness, Pedal Edema - Neurological Exam Neurological Exam: Alert, Awake, CN II-XII Intact, Oriented x3 - Psychiatric Exam Psychiatric exam: Normal Affect, Normal Mood - Skin Skin Exam: Dry, Intact Assessment and Plan (1) Asthma exacerbation Status: Acute (2) DVT prophylaxis Status: Acute - Assessment and Plan (Free Text) Assessment: 56 year old female admitted with severe asthma exacerbation. Wheezing no longer audible upon entry into pts room. Cough persists but improved. O2 via NC on for improved respirations as per patient. Severe asthma exacerbation with bronchiectasis in the setting of HIV disease improved Chest CT: IMPRESSION:Interval resolution previously noted subsegmental infiltrates in the lower lobes though there are some residual areas of chronic linear atelectasis/ scarring. Mild bronchial wall thickening in the lower lung amado. Stable appearing 2 mm nodule right middle lobe. Complex nodule left lobe thyroid gland less well seen compared prior exam. continue present management: * zithromax (day3) * IV solumedrol 60mg q 8, consider taper tomorrow. * duonebs q4 hrs * theophylline * phenergan * acetylcysteine * albuterol prn * oxygen prn * iv solumedrol 60mg q8 * daliresp started 10/27- Anemia -mild, chronic -feosol 325 mg PO daily HIV asymptomatic Patient has hx of AIDS, CD4 count improving on current medications, now HIV Absolute CD4 count: 244 absolute lymphocytes- 1859 Viral Load: <1.30 continue with home regimen: Truvada, tivicay, bactrim DVT prophylaxis -lovenox SC 40mg
[2016-10-29 06:47] LABS: BLOOD UREA NITROGEN 16 mg/dl (7-17); CARBON DIOXIDE 24 mmol/L (22-30); CHLORIDE 105 mmol/L (98-107); GFR AFRICAN-AMERICAN > 60; GLUCOSE,RANDOM 124 mg/dL (65-105); POTASSIUM 4.5 MMOL/L (3.6-5.0); SODIUM 140 mmol/l (132-148)
[2016-10-29] MEDS: Acetylcysteine 20% Inhal Soln (4ml) INH SCH ×2 (07:55→19:33)
--- NOTE | 2016-10-29 08:25 | CP.PCM.PN ---
Subjective - Date & Time of Evaluation Date of Evaluation: 10/29/16 Time of Evaluation: 08:28 - Subjective Subjective: CHRONIC CO0UGH PERSISTS NO SPUTUM PRODUCTION\ NO CHEST PAINS CT OF CHEST RESULTS REVIEWED[PT INDICATES THAT SHE IS AWARE OF THYROID NODULE AND HAD BIOPSY DONE IN THE THE PAST] Objective - Vital Signs/Intake and Output Vital Signs (last 24 hours): Temp Pulse Resp BP Pulse Ox 98.4 F 93 H 18 126/75 98 10/29/16 07:58 10/29/16 07:58 10/29/16 07:58 10/29/16 07:58 10/29/16 07:58 - Medications Medications: Current Medications Acetylcysteine (Acetylcysteine 20%) 2 ml INH RBID [facility] Last Admin: 10/29/16 07:55 Dose: 2 ml Albuterol Sulfate (Albuterol 0.083% Inhal Lily (2.5 Mg/3 Ml) Ud) 2.5 mg INH RQ6 PRN PRN Reason: Shortness of Breath Last Admin: 10/27/16 16:25 Dose: 2.5 mg Albuterol/Ipratropium (Duoneb 3 Mg/0.5 Mg (3 Ml) Ud) 3 ml IH RQ4 [facility] Last Admin: 10/29/16 07:56 Dose: 3 ml Docusate Sodium (Colace) 100 mg PO HS [facility] Last Admin: 10/28/16 21:28 Dose: 100 mg Dolutegravir Sodium (Tivicay) 50 mg PO DAILY [facility] Last Admin: 10/28/16 16:25 Dose: 50 mg Emtricitabine/Tenofovir (Truvada 200 Mg-300 Mg) 1 tab PO DAILY [facility] Last Admin: 10/28/16 16:26 Dose: 1 tab Enoxaparin Sodium (Lovenox) 40 mg SC DAILY [facility] PRN Reason: Protocol Last Admin: 10/28/16 08:35 Dose: 40 mg Ferrous Sulfate (Feosol) 325 mg PO DAILY [facility] Last Admin: 10/28/16 08:35 Dose: 325 mg Methylprednisolone 60 mg/ (Sodium Chloride) 50 mls @ 100 mls/hr IVPB Q8 [facility] Last Admin: 10/29/16 00:30 Dose: 100 mls/hr Azithromycin 500 mg/ Sodium (Chloride) 250 mls @ 250 mls/hr IVPB DAILY [facility] Last Admin: 10/28/16 08:37 Dose: 250 mls/hr Montelukast Sodium (Singulair) 10 mg PO HS [facility] Last Admin: 10/28/16 21:29 Dose: 10 mg Oxcarbazepine (Trileptal) 150 mg PO BID [facility] Last Admin: 10/28/16 16:26 Dose: 150 mg Promethazine HCl/Codeine (Phenergan/Codeine Oral Syrup) 10 ml PO Q6 [facility] Last Admin: 10/29/16 05:16 Dose: 10 ml Roflumilast (Daliresp) 500 mcg PO DAILY [facility] Last Admin: 10/28/16 08:34 Dose: 500 mcg Theophylline (Uniphyl) 400 mg PO DAILY [facility] Last Admin: 10/28/16 16:27 Dose: 400 mg Trimethoprim/Sulfamethoxazole (Bactrim Ds Tab) 1 tab PO [facility] Last Admin: 10/28/16 21:27 Dose: 1 tab - Labs Labs: 10/29/16 05:30 10/29/16 05:30 - Constitutional Appears: Chronically Ill - Head Exam Head Exam: ATRAUMATIC, NORMAL INSPECTION, NORMOCEPHALIC - Eye Exam Eye Exam: EOMI, Normal appearance, PERRL Pupil Exam: NORMAL ACCOMODATION, PERRL - ENT Exam ENT Exam: Mucous Membranes Moist, Normal Exam - Neck Exam Neck Exam: Full ROM, Normal Inspection. absent: Lymphadenopathy - Respiratory Exam Respiratory Exam: Decreased Breath Sounds, Prolonged Expiratory Phase, Rales, Wheezes, NORMAL BREATHING PATTERN - Cardiovascular Exam Cardiovascular Exam: REGULAR RHYTHM, +S1, +S2. absent: Murmur - GI/Abdominal Exam GI & Abdominal Exam: Soft, Normal Bowel Sounds. absent: Tenderness - Rectal Exam Rectal Exam: NORMAL INSPECTION - Extremities Exam Extremities Exam: Full ROM, Normal Capillary Refill, Normal Inspection. absent : Joint Swelling, Pedal Edema - Back Exam Back Exam: NORMAL INSPECTION - Neurological Exam Neurological Exam: Alert, Awake, CN II-XII Intact, Normal Gait, Oriented x3 - Psychiatric Exam Psychiatric exam: Normal Affect, Normal Mood - Skin Skin Exam: Dry, Intact, Normal Color, Warm Assessment and Plan - Assessment and Plan (Free Text) Assessment: ACUTE EXAC OF ASTHMA BRONCHIECTASIS HIV DZ THYROID NODULE Plan: CONTINUE ANTIBIOTIC RX TAPER STEROIDS OK TO D/C IN AM ON PO ANTIBIOTICS AND STEROIDS CHRONIC COUGH AND PULMONARY CONGESTION WILL NOT COMPLETELY RESOLVE DESPITE APPROPRIATE RX WILL CONTINUE TO FOLLOW IN OUTPT CLINIC
[2016-10-29] MEDS: Emtricitabine-Tenofovir 200 mg-300 mg Tab PO SCH (09:16)
[2016-10-29] MEDS: THEOPHYLLINE 400 MG T24(UNIPHYL) PO SCH (09:16)
[2016-10-29] MEDS: Enoxaparin 40 mg Syringe SC SCH (09:17)
[2016-10-29] MEDS: Azithromycin 500 MG in Sodium Chloride 0.9% 250 ML IVPB SCH (09:18)
[2016-10-29] MEDS: methylPREDNISolone 40 MG in Sodium Chloride 0.9% 50 ML IVPB SCH ×2 (09:33→21:29)
[2016-10-29] MEDS: Albuterol 0.083% Inhal Sol (2.5 mg/3 mL) UD INH PRN (10:24)
[2016-10-29 12:23] LABS: NEUTROPHIL 90 % (42-75); TOTAL CELLS COUNTED 100
[2016-10-29] MEDS: Tmp-Smz 800 mg-160 mg DS Tab PO SCH (21:27)
[2016-10-30] MEDS: Promethazine/Cod 6.25mg-10mg/5ml Syr UD PO SCH ×4 (04:55→23:29)
[2016-10-30] MEDS: Albuterol-Ipratrop 3 mg / 0.5 (3 ml) UD IH SCH ×5 (05:18→19:31)
--- NOTE | 2016-10-30 06:52 | CP.PCM.PN ---
Subjective - Date & Time of Evaluation Date of Evaluation: 10/30/16 Time of Evaluation: 08:45 - Subjective Subjective: No acute events overnight. Patient is still coughing although its improved, but she unable to speak in full sentences due to her nonproductive cough. She is sitting up in bed, with audible wheezing. Reports improved symptoms. Unable to ambulate too far. She is wearing O2 NC. No chest pain. Patient has a graduation democrat on Saturday, requesting to be d/c before then. Objective - Vital Signs/Intake and Output Vital Signs (last 24 hours): Temp Pulse Resp BP Pulse Ox 97.8 F 83 18 121/79 96 10/30/16 05:32 10/30/16 05:32 10/30/16 05:32 10/30/16 05:32 10/30/16 05:32 - Medications Medications: Current Medications Acetylcysteine (Acetylcysteine 20%) 2 ml INH RBID [facility] Last Admin: 10/29/16 19:33 Dose: 2 ml Albuterol Sulfate (Albuterol 0.083% Inhal Lily (2.5 Mg/3 Ml) Ud) 2.5 mg INH RQ6 PRN PRN Reason: Shortness of Breath Last Admin: 10/29/16 10:24 Dose: 2.5 mg Albuterol/Ipratropium (Duoneb 3 Mg/0.5 Mg (3 Ml) Ud) 3 ml IH RQ4 [facility] Last Admin: 10/30/16 05:18 Dose: 3 ml Docusate Sodium (Colace) 100 mg PO HS [facility] Last Admin: 10/29/16 21:27 Dose: 100 mg Dolutegravir Sodium (Tivicay) 50 mg PO DAILY [facility] Last Admin: 10/29/16 09:16 Dose: 50 mg Emtricitabine/Tenofovir (Truvada 200 Mg-300 Mg) 1 tab PO DAILY [facility] Last Admin: 10/29/16 09:16 Dose: 1 tab Enoxaparin Sodium (Lovenox) 40 mg SC DAILY [facility] PRN Reason: Protocol Last Admin: 10/29/16 09:17 Dose: 40 mg Ferrous Sulfate (Feosol) 325 mg PO DAILY [facility] Last Admin: 10/29/16 09:17 Dose: 325 mg Azithromycin 500 mg/ Sodium (Chloride) 250 mls @ 250 mls/hr IVPB DAILY [facility] Last Admin: 10/29/16 09:18 Dose: 250 mls/hr Methylprednisolone 40 mg/ (Sodium Chloride) 50.64 mls @ 100 mls/hr IVPB Q12 [facility] Last Admin: 10/29/16 21:29 Dose: 100 mls/hr Montelukast Sodium (Singulair) 10 mg PO HS [facility] Last Admin: 10/29/16 21:28 Dose: 10 mg Oxcarbazepine (Trileptal) 150 mg PO BID [facility] Last Admin: 10/29/16 16:40 Dose: 150 mg Promethazine HCl/Codeine (Phenergan/Codeine Oral Syrup) 10 ml PO Q6 [facility] Last Admin: 10/30/16 04:55 Dose: 10 ml Roflumilast (Daliresp) 500 mcg PO DAILY [facility] Last Admin: 10/29/16 09:16 Dose: 500 mcg Theophylline (Uniphyl) 400 mg PO DAILY [facility] Last Admin: 10/29/16 09:16 Dose: 400 mg Trimethoprim/Sulfamethoxazole (Bactrim Ds Tab) 1 tab PO [facility] Last Admin: 10/29/16 21:27 Dose: 1 tab - Labs Labs: 10/29/16 05:30 10/29/16 05:30 - Constitutional Appears: In Acute Distress (mild distress due to respirations) - Head Exam Head Exam: NORMAL INSPECTION - Eye Exam Eye Exam: Normal appearance - ENT Exam ENT Exam: Mucous Membranes Moist - Respiratory Exam Respiratory Exam: Rales (diffuse), Wheezes (diffuse), Respiratory Distress, Stridor. absent: Clear to Ausculation Bilateral - Cardiovascular Exam Cardiovascular Exam: REGULAR RHYTHM, +S1, +S2 - GI/Abdominal Exam GI & Abdominal Exam: Soft, Normal Bowel Sounds. absent: Distended, Tenderness - Neurological Exam Neurological Exam: Alert, Awake, CN II-XII Intact, Oriented x3 - Psychiatric Exam Psychiatric exam: Normal Affect, Normal Mood - Skin Skin Exam: Dry, Intact Assessment and Plan (1) Asthma exacerbation Status: Acute (2) DVT prophylaxis Status: Acute - Assessment and Plan (Free Text) Assessment: 56 year old female admitted with severe asthma exacerbation. Cough persists but is improved with Phenergan. Continue with present management, likely stable for d/c home in AM. Will do walk test today. Plan: Severe asthma exacerbation with bronchiectasis in the setting of HIV disease improved Chest CT reviewed. continue present management: * zithromax (day 4) * IV solumedrol 40mg q 12 * duonebs q4 hrs * theophylline * phenergan * acetylcysteine * albuterol prn * oxygen prn * daliresp started 10/27- Anemia -mild, chronic -feosol 325 mg PO daily HIV asymptomatic Patient has hx of AIDS, CD4 count improving on current medications, now HIV Absolute CD4 count: 244 absolute lymphocytes- 1859 Viral Load: <1.30 continue with home regimen: Truvada, tivicay, bactrim DVT prophylaxis -lovenox SC 40mg
[2016-10-30] MEDS: Acetylcysteine 20% Inhal Soln (4ml) INH SCH ×2 (07:41→19:31)
[2016-10-30] MEDS: Enoxaparin 40 mg Syringe SC SCH (09:05)
[2016-10-30] MEDS: methylPREDNISolone 40 MG in Sodium Chloride 0.9% 50 ML IVPB SCH ×2 (09:05→22:07)
[2016-10-30] MEDS: Emtricitabine-Tenofovir 200 mg-300 mg Tab PO SCH (09:06)
[2016-10-30] MEDS: THEOPHYLLINE 400 MG T24(UNIPHYL) PO SCH (09:06)
[2016-10-30] MEDS: Azithromycin 500 MG in Sodium Chloride 0.9% 250 ML IVPB SCH (09:07)
--- NOTE | 2016-10-30 09:15 | CP.PCM.PN ---
Subjective - Date & Time of Evaluation Date of Evaluation: 10/30/16 Time of Evaluation: 09:15 - Subjective Subjective: CHRONIC COUGH PERSISTS NO CHEST PAINS PT INSISTS ON GOING HOME IN AM BECAUSE SHE HAS A GR[employer]UATION [employer] PARTY TO PLAN Objective - Vital Signs/Intake and Output Vital Signs (last 24 hours): Temp Pulse Resp BP Pulse Ox 97.9 F 82 18 125/75 93 L 10/30/16 07:55 10/30/16 07:55 10/30/16 07:55 10/30/16 07:55 10/30/16 07:55 - Medications Medications: Current Medications Acetylcysteine (Acetylcysteine 20%) 2 ml INH RBID [facility] Last Admin: 10/30/16 07:41 Dose: 2 ml Albuterol Sulfate (Albuterol 0.083% Inhal Lily (2.5 Mg/3 Ml) Ud) 2.5 mg INH RQ6 PRN PRN Reason: Shortness of Breath Last Admin: 10/29/16 10:24 Dose: 2.5 mg Albuterol/Ipratropium (Duoneb 3 Mg/0.5 Mg (3 Ml) Ud) 3 ml IH RQ4 [facility] Last Admin: 10/30/16 07:41 Dose: 3 ml Docusate Sodium (Colace) 100 mg PO HS [facility] Last Admin: 10/29/16 21:27 Dose: 100 mg Dolutegravir Sodium (Tivicay) 50 mg PO DAILY [facility] Last Admin: 10/30/16 09:06 Dose: 50 mg Emtricitabine/Tenofovir (Truvada 200 Mg-300 Mg) 1 tab PO DAILY [facility] Last Admin: 10/30/16 09:06 Dose: 1 tab Enoxaparin Sodium (Lovenox) 40 mg SC DAILY [facility] PRN Reason: Protocol Last Admin: 10/30/16 09:05 Dose: 40 mg Ferrous Sulfate (Feosol) 325 mg PO DAILY [facility] Last Admin: 10/30/16 09:05 Dose: 325 mg Azithromycin 500 mg/ Sodium (Chloride) 250 mls @ 250 mls/hr IVPB DAILY [facility] Last Admin: 10/30/16 09:07 Dose: 250 mls/hr Methylprednisolone 40 mg/ (Sodium Chloride) 50.64 mls @ 100 mls/hr IVPB Q12 [facility] Last Admin: 10/30/16 09:05 Dose: 100 mls/hr Montelukast Sodium (Singulair) 10 mg PO HS [facility] Last Admin: 10/29/16 21:28 Dose: 10 mg Oxcarbazepine (Trileptal) 150 mg PO BID [facility] Last Admin: 10/30/16 09:06 Dose: 150 mg Promethazine HCl/Codeine (Phenergan/Codeine Oral Syrup) 10 ml PO Q6 [facility] Last Admin: 10/30/16 09:07 Dose: 10 ml Roflumilast (Daliresp) 500 mcg PO DAILY [facility] Last Admin: 10/30/16 09:04 Dose: 500 mcg Theophylline (Uniphyl) 400 mg PO DAILY [facility] Last Admin: 10/30/16 09:06 Dose: 400 mg Trimethoprim/Sulfamethoxazole (Bactrim Ds Tab) 1 tab PO [facility] Last Admin: 10/29/16 21:27 Dose: 1 tab - Labs Labs: 10/29/16 05:30 10/29/16 05:30 - Constitutional Appears: Chronically Ill - Head Exam Head Exam: ATRAUMATIC, NORMAL INSPECTION, NORMOCEPHALIC - Eye Exam Eye Exam: EOMI, Normal appearance, PERRL Pupil Exam: NORMAL ACCOMODATION, PERRL - ENT Exam ENT Exam: Mucous Membranes Moist, Normal Exam - Neck Exam Neck Exam: Full ROM, Normal Inspection. absent: Lymphadenopathy - Respiratory Exam Respiratory Exam: Decreased Breath Sounds, Rales, Wheezes, NORMAL BREATHING PATTERN - Cardiovascular Exam Cardiovascular Exam: REGULAR RHYTHM, +S1, +S2. absent: Murmur - GI/Abdominal Exam GI & Abdominal Exam: Soft, Normal Bowel Sounds. absent: Tenderness - Rectal Exam Rectal Exam: NORMAL INSPECTION - Extremities Exam Extremities Exam: Full ROM, Normal Capillary Refill, Normal Inspection. absent : Joint Swelling, Pedal Edema - Back Exam Back Exam: NORMAL INSPECTION - Neurological Exam Neurological Exam: Alert, Awake, CN II-XII Intact, Normal Gait, Oriented x3 - Psychiatric Exam Psychiatric exam: Normal Affect, Normal Mood - Skin Skin Exam: Dry, Intact, Normal Color, Warm Assessment and Plan - Assessment and Plan (Free Text) Assessment: ASTHMA EXAC BRONCHIECTASIS HIV DZ Plan: CONTINUE PRESENT RX OK TO D/C IN AM ON TAPERING DOSES OF STEROIDS AND ANTIBIOTICS
[2016-10-30] MEDS: Tmp-Smz 800 mg-160 mg DS Tab PO SCH (22:07)
[2016-10-31] MEDS: Albuterol-Ipratrop 3 mg / 0.5 (3 ml) UD IH SCH ×4 (00:22→11:48)
[2016-10-31] MEDS: Promethazine/Cod 6.25mg-10mg/5ml Syr UD PO SCH ×2 (05:06→09:49)
[2016-10-31] MEDS: Acetylcysteine 20% Inhal Soln (4ml) INH SCH (09:22)
--- NOTE | 2016-10-31 09:38 | CP.PCM.PN ---
Subjective - Date & Time of Evaluation Date of Evaluation: 10/31/16 Time of Evaluation: 09:40 - Subjective Subjective: FEELS BETTER CHRONIC COUGH PERSISTS NO CHEST PAINS SOB IMPROVED Objective - Vital Signs/Intake and Output Vital Signs (last 24 hours): Temp Pulse Resp BP Pulse Ox 97.5 F L 81 20 122/76 97 10/31/16 08:01 10/31/16 08:01 10/31/16 08:01 10/31/16 08:01 10/31/16 08:01 Intake and Output: 10/31/16 10/31/16 06:59 18:59 Intake Total 550 Balance 550 - Medications Medications: Current Medications Acetylcysteine (Acetylcysteine 20%) 2 ml INH RBID SAMMIE Last Admin: 10/31/16 09:22 Dose: Not Given Albuterol Sulfate (Albuterol 0.083% Inhal Lily (2.5 Mg/3 Ml) Ud) 2.5 mg INH RQ6 PRN PRN Reason: Shortness of Breath Last Admin: 10/29/16 10:24 Dose: 2.5 mg Albuterol/Ipratropium (Duoneb 3 Mg/0.5 Mg (3 Ml) Ud) 3 ml IH RQ4 SAMMIE Last Admin: 10/31/16 07:25 Dose: 3 ml Docusate Sodium (Colace) 100 mg PO HS [facility] Last Admin: 10/30/16 22:07 Dose: 100 mg Dolutegravir Sodium (Tivicay) 50 mg PO DAILY [facility]E Last Admin: 10/30/16 09:06 Dose: 50 mg Emtricitabine/Tenofovir (Truvada 200 Mg-300 Mg) 1 tab PO DAILY [facility]E Last Admin: 10/30/16 09:06 Dose: 1 tab Enoxaparin Sodium (Lovenox) 40 mg SC DAILY SAMMIE PRN Reason: Protocol Last Admin: 10/30/16 09:05 Dose: 40 mg Ferrous Sulfate (Feosol) 325 mg PO DAILY [facility] Last Admin: 10/30/16 09:05 Dose: 325 mg Azithromycin 500 mg/ Sodium (Chloride) 250 mls @ 250 mls/hr IVPB DAILY [facility]E Last Admin: 10/30/16 09:07 Dose: 250 mls/hr Methylprednisolone 40 mg/ (Sodium Chloride) 50.64 mls @ 100 mls/hr IVPB Q12 [facility]MIE Last Admin: 10/30/16 22:07 Dose: 100 mls/hr Montelukast Sodium (Singulair) 10 mg PO HS [facility] Last Admin: 10/30/16 22:08 Dose: 10 mg Oxcarbazepine (Trileptal) 150 mg PO BID [facility] Last Admin: 10/30/16 16:15 Dose: 150 mg Promethazine HCl/Codeine (Phenergan/Codeine Oral Syrup) 10 ml PO Q6 [facility] Last Admin: 10/31/16 05:06 Dose: 10 ml Roflumilast (Daliresp) 500 mcg PO DAILY [facility] Last Admin: 10/30/16 09:04 Dose: 500 mcg Sennosides (Senokot Tab) 8.6 mg PO [facility] Last Admin: 10/30/16 22:08 Dose: 8.6 mg Theophylline (Uniphyl) 400 mg PO DAILY [facility] Last Admin: 10/30/16 09:06 Dose: 400 mg Trimethoprim/Sulfamethoxazole (Bactrim Ds Tab) 1 tab PO [facility] Last Admin: 10/30/16 22:07 Dose: 1 tab - Labs Labs: 10/29/16 05:30 10/29/16 05:30 - Constitutional Appears: Chronically Ill - Head Exam Head Exam: ATRAUMATIC, NORMAL INSPECTION, NORMOCEPHALIC - Eye Exam Eye Exam: EOMI, Normal appearance, PERRL Pupil Exam: NORMAL ACCOMODATION, PERRL - ENT Exam ENT Exam: Mucous Membranes Moist, Normal Exam - Neck Exam Neck Exam: Full ROM, Normal Inspection. absent: Lymphadenopathy - Respiratory Exam Respiratory Exam: Decreased Breath Sounds, Rales, NORMAL BREATHING PATTERN - Cardiovascular Exam Cardiovascular Exam: REGULAR RHYTHM, +S1, +S2. absent: Murmur - GI/Abdominal Exam GI & Abdominal Exam: Soft, Normal Bowel Sounds. absent: Tenderness - Rectal Exam Rectal Exam: NORMAL INSPECTION - Extremities Exam Extremities Exam: Full ROM, Normal Capillary Refill, Normal Inspection. absent : Joint Swelling, Pedal Edema - Back Exam Back Exam: NORMAL INSPECTION - Neurological Exam Neurological Exam: Alert, Awake, CN II-XII Intact, Normal Gait, Oriented x3 - Psychiatric Exam Psychiatric exam: Normal Affect, Normal Mood - Skin Skin Exam: Dry, Intact, Normal Color, Warm Assessment and Plan - Assessment and Plan (Free Text) Assessment: ASTHMA-CHRONIC PERSISTENT HIV DZ MUCUS PLUGGING OF AIRWAYS Plan: OK TO D/C HOME ON TAPERING DOSES OF STERODS X 2 WEEKS AND PO ANTIBIOTICS PT HAS HOME O2 WILL SIGN OFF CASE AND SEE AGAIN AT YOUR REQUEST
[2016-10-31] MEDS: Enoxaparin 40 mg Syringe SC SCH (09:41)
[2016-10-31] MEDS: methylPREDNISolone 40 MG in Sodium Chloride 0.9% 50 ML IVPB SCH (09:42)
[2016-10-31] MEDS: Emtricitabine-Tenofovir 200 mg-300 mg Tab PO SCH (09:43)
[2016-10-31] MEDS: Azithromycin 500 MG in Sodium Chloride 0.9% 250 ML IVPB SCH (09:43)
[2016-10-31] MEDS: THEOPHYLLINE 400 MG T24(UNIPHYL) PO SCH (09:43)
--- NOTE | 2016-10-31 10:29 | CP.PCM.DIS ---
Provider - Provider Date of Admission: 10/27/16 15:30 Attending physician: Bambi Ware MD Time Spent in preparation of Discharge (in minutes): 30 Diagnosis - Discharge Diagnosis (1) Asthma exacerbation Status: Acute (2) DVT prophylaxis Status: Acute Hospital Course - Lab Results Lab Results: Most Recent Lab Values WBC 11.3 K/uL (4.8-10.8) H D 10/29/16 05:30 RBC 3.73 Mil/uL (3.80-5.20) L 10/29/16 05:30 Hgb 10.8 g/dL (12.0-16.0) L 10/29/16 05:30 Hct 33.4 % (34.0-47.0) L 10/29/16 05:30 MCV 89.4 fl (81.0-99.0) 10/29/16 05:30 MCH 29.0 pg (27.0-31.0) 10/29/16 05:30 MCHC 32.4 g/dL (33.0-37.0) L 10/29/16 05:30 RDW 13.9 % (11.5-14.5) 10/29/16 05:30 Plt Count 396 K/uL (130-400) 10/29/16 05:30 MPV 6.6 fl (7.2-11.7) L 10/29/16 05:30 Neut % (Auto) 87.7 % (50.0-75.0) H 10/29/16 05:30 Lymph % (Auto) 9.0 % (20.0-40.0) L 10/29/16 05:30 Hayes % (Auto) 3.3 % (0.0-10.0) 10/29/16 05:30 Eos % (Auto) 0.0 % (0.0-4.0) 10/29/16 05:30 Baso % (Auto) 0.0 % (0.0-2.0) 10/29/16 05:30 Neut # 9.9 K/uL (1.8-7.0) H 10/29/16 05:30 Lymph # 1.0 K/uL (1.0-4.3) 10/29/16 05:30 Hayes # 0.4 K/uL (0.0-0.8) 10/29/16 05:30 Eos # 0.0 K/uL (0.0-0.7) 10/29/16 05:30 Baso # 0.0 K/uL (0.0-0.2) 10/29/16 05:30 Neutrophils % (Manual) 90 % (42-75) H 10/29/16 05:30 Lymphocytes % (Manual) 7 % (20-50) L 10/29/16 05:30 Monocytes % (Manual) 3 % (0-10) 10/29/16 05:30 Platelet Estimate Normal (NORMAL) 10/29/16 05:30 Hypochromasia (manual) Slight 10/29/16 05:30 pCO2 36 mm/Hg (35-45) 10/27/16 16:15 pO2 127 mm/Hg (80-100) H 10/27/16 16:15 HCO3 20.9 mmol/L (21-28) L 10/27/16 16:15 ABG pH 7.35 (7.35-7.45) 10/27/16 16:15 ABG Total CO2 21.0 mmol/L (22-28) L 10/27/16 16:15 ABG O2 Saturation 99.4 % (95-98) H 10/27/16 16:15 ABG O2 Content 15.7 ML/dL (15-23) 10/27/16 16:15 ABG Base Excess -5.1 mmol/L (-2.0-3.0) L 10/27/16 16:15 ABG Hemoglobin 11.4 g/dL (11.7-17.4) L 10/27/16 16:15 ABG Carboxyhemoglobin 1.1 % (0.5-1.5) 10/27/16 16:15 POC ABG HHb (Measured) 0.6 % (0.0-5.0) 10/27/16 16:15 ABG Methemoglobin 1.9 % (0.0-3.0) 10/27/16 16:15 ABG O2 Capacity 15.8 mL/dL (16-24) L 10/27/16 16:15 Darryl Test Yes 10/27/16 16:15 A-a O2 Difference 78.0 mm/Hg 10/27/16 16:15 Hgb O2 Saturation 96.4 % (95.0-98.0) 10/27/16 16:15 FiO2 35.0 % 10/27/16 16:15 Sodium 140 mmol/l (132-148) 10/29/16 05:30 Potassium 4.5 MMOL/L (3.6-5.0) 10/29/16 05:30 Chloride 105 mmol/L (98-107) 10/29/16 05:30 Carbon Dioxide 24 mmol/L (22-30) 10/29/16 05:30 Anion Gap 15 (10-20) 10/29/16 05:30 BUN 16 mg/dl (7-17) 10/29/16 05:30 Creatinine 0.9 mg/dL (0.7-1.2) 10/29/16 05:30 Est GFR ( Amer) > 60 10/29/16 05:30 Est GFR (Non-Af Amer) > 60 10/29/16 05:30 POC Glucose (mg/dL) 149 mg/dL (65-110) H 10/31/16 05:35 Random Glucose 124 mg/dL (65-105) H 10/29/16 05:30 Calcium 9.0 mg/dL (8.4-10.2) 10/29/16 05:30 Total Bilirubin 0.6 mg/dl (0.2-1.3) 10/26/16 12:35 AST 41 U/L (14-36) H D 10/26/16 12:35 ALT 29 U/L (9-52) 10/26/16 12:35 Alkaline Phosphatase 108 U/L (38-126) 10/26/16 12:35 Total Protein 8.9 G/DL (6.3-8.2) H 10/26/16 12:35 Albumin 4.2 g/dL (3.5-5.0) 10/26/16 12:35 Globulin 4.7 gm/dL (2.2-3.9) H 10/26/16 12:35 Albumin/Globulin Ratio 0.9 (1.0-2.1) L 10/26/16 12:35 - Hospital Course Hospital Course: 56 year old female h asthma, AIDS admitted for acute asthma exacerbation. Patient was treated with IV steroids, a 5 day course of Azithromycin 250mg IV daily, Duonebs q4hrs, Phenergan/codeine with improvement of symptoms. Pulmonolgy was consulted (Dr. Yee) and added theophylline and antibiotics. Patient condtion is improved today. She does have persistent wheezing, but rales have mostly resolved. Cough is improved, and O2 Sat is 98% on room air. Patient will follow up with Dr. Yee as outpatient. Has appt with PMD: Dr. Boyer. Discharge MEdications: Phenergan /Codeine 10mL q6 PRN Prednisone Taper --take 30mg PO daily for 7 days, then --take 20mg PO daily for 7 days, followed by --take 10mg PO daily for 7 days. Resume home medications: Albuterol Sulfate (Albuterol 0.083% Inhal Lily (2.5 Mg/3 Ml) Ud) 2.5 mg INH RQ6 PRN Albuterol/Ipratropium (Duoneb 3 Mg/0.5 Mg (3 Ml) Ud) 3 ml IH RQ4 SAMMIE Docusate Sodium (Colace) 100 mg PO HS [facility] Dolutegravir Sodium (Tivicay) 50 mg PO DAILY [facility] Emtricitabine/Tenofovir (Truvada 200 Mg-300 Mg) 1 tab PO DAILY [facility] Ferrous Sulfate (Feosol) 325 mg PO DAILY [facility] Montelukast Sodium (Singulair) 10 mg PO HS [facility] Oxcarbazepine (Trileptal) 150 mg PO BID [facility] Trimethoprim/Sulfamethoxazole (Bactrim Ds Tab) 1 tab PO HS [facility] Discharge Exam - Head Exam Head Exam: ATRAUMATIC, NORMAL INSPECTION, NORMOCEPHALIC - Eye Exam Eye Exam: EOMI, Normal appearance - ENT Exam ENT Exam: Mucous Membranes Moist - Respiratory Exam Respiratory Exam: Rales (mild improved), Wheezes (diffuse bilaterally, +cough on inspiration). absent: Chest Wall Tenderness - Cardiovascular Exam Cardiovascular Exam: REGULAR RHYTHM, +S1, +S2 - GI/Abdominal Exam GI & Abdominal Exam: Unremarkable - Neurological Exam Neurological exam: Alert, CN II-XII Intact, Oriented x3 - Psychiatric Exam Psychiatric exam: Normal Affect, Normal Mood - Skin Skin Exam: Dry, Intact Discharge Plan - Discharge Medications Prescriptions: Prednisone 10 mg PO DAILY 21 Days Promethazine/Codeine [Codeine/Promethazine 10 MG/5 Ml-6.25 MG/5 Ml] 10 ml PO Q6 PRN #1 udc PRN Reason: Cough - Follow Up Plan Condition: GOOD Disposition: HOME/ ROUTINE Instructions: Asthma (DC) Additional Instructions: Patient to take medication as directed. Patient to follow up with PMD in 1 week Patient to follow up with Dr. Yee in 1-2 weeks. Return to ED if symptoms worsens or regresses.
[2016-10-31 12:12] VITALS: BP 115/75; PULSE 83; RESP 18; TEMP 97.6; O2SAT 95
== END 2016-10-31 14:21 | disposition home or self-care (01) | DRG 202 ==
LOC: H.ER 11:58 → H.ERHOLD 14:28 → INTOOBSV 14:28 → H.TEL 18:40 → OBSVTOIN 10-27 15:30 → H.TEL 10-30 22:02
PROVIDERS: ADMIT Family Medicine Geriatric Medicine; ATTEND Family Medicine Geriatric Medicine
PROC: 5A0955Z Assistance with Respiratory Ventilation, Greater than 96 Consecutive Hours (ICD-10-PCS; 2016-10-26)
PROC: 3E0234Z Introduction of Serum, Toxoid and Vaccine into Muscle, Percutaneous Approach (ICD-10-PCS; principal; 2016-10-27)
DX: J45.51 Severe persistent asthma with (acute) exacerbation (principal); B20 Human immunodeficiency virus [HIV] disease; Z99.81 Dependence on supplemental oxygen; D64.9 Anemia, unspecified; J44.9 Chronic obstructive pulmonary disease, unspecified; T17.990A Other foreign object in respiratory tract, part unspecified in causing asphyxiation, initial encounter; E04.1 Nontoxic single thyroid nodule; Z23 Encounter for immunization; Z91.013 Allergy to seafood; J47.9 Bronchiectasis, uncomplicated

== ENCOUNTER 2017-04-12 13:34 | Inpatient (IN) | payer MEDICARE ==
[2017-04-12 13:34] VITALS: BMI 30.1
[2017-04-12] MEDS ORDERED: Albuterol-Ipratrop 3 mg / 0.5 (3 ml) UD INH STA ×3 (13:57→14:27)
[2017-04-12] MEDS: methylPREDNISolone 125 MG in Sodium Chloride 0.9% 50 ML IVPB ONE ×2 (14:14→14:33)
[2017-04-12] MEDS ORDERED: Albuterol-Ipratrop 3 mg / 0.5 (3 ml) UD ONE (14:14)
--- NOTE | 2017-04-12 14:14 | ED PDOC ---
HPI: SOB/CHF/COPD Chief Complaint (Provider): CP, SOB History Per: Patient Onset/Duration Of Symptoms: Days (2), Persistent Current Symptoms Are (Timing): Still Present Quality: Sharp Current Respiratory Medications: See Home Med List Severity: Moderate Location Of Discomfort (Image): 1 - R/parasternal area Associated Symptoms: Chest Pain Additional History Per: Patient <Mark Wynn - Last Filed: 04/12/17 17:33> <Leela Acosta - Last Filed: 04/15/17 16:15> Time Seen by Provider: 04/12/17 13:56 Chief Complaint (Nursing): Chest Pain Additional Complaint(s): 56 y/o F with PMhx of HIV and Asthma presents to ED c/o R/side Chest pain and SOB for the past 2 days. She states being compliant with her home meds and f/w with pulmonology and PMd as scheduled. 2 days ago pain started on r/side of her chest, anterior, worsening with inspiration and position changes. Patient admits cough but states that she has chronic cough. SOB at rest. Afebrile, no sick contacts, no smoking, denies vomiting, nausea, abd pain, palpitations, diarrhea. Previous records reviewed. Last CD4 137 VL 149 on 03/07/17 (Mark Wynn) Supervising Attending Note <Mark Wynn - Last Filed: 04/12/17 17:33> - Supervising Attending Note The Documented history was done by the: Physician Lard Renderer, Attending Physician The documented physical exam was done by the: Physician Lard Renderer, Attending Physician - Attestation: I have personally seen and examined this patient.: Yes I have fully participated in the care of the patient.: Yes I have reviewed all pertinent clinical information, including history, physical exam and plan: Yes <Leela Acosta - Last Filed: 04/15/17 16:15> - Notes: Notes:: Right sided chest pain and shortness of breath, persistent despite asthma medication. Hypoxia on ABG and pulse ox decreases while resting. Accession No. : [id number] Patient Name / ID : PATIRA DE GUZMAN / [id number] Exam Date : 04/12/2017 16:59:10 ( Approved ) Study Comment : Sex / Age : F / 56Y Creator : Joseph Santoyo MD Dictator : Joseph Santoyo MD Advertising Job Titles : Business Development Engineer : Joseph Santoyo MD Approver2 : Report Date : 04/12/2017 17:47:35 My Comment : PROCEDURE: CT Chest with contrast (Pulmonary Angiogram) HISTORY: pleuritic RIGHT sided CP and hypoxia COMPARISON: None available. TECHNIQUE: Axial computed tomography images were obtained of the chest in the pulmonary arterial phase of enhancement. Coronal and sagittal reformatted images were created and reviewed. Maximum intensity projection (MIP) reconstructed images in the following planes : Axial. Intravenous contrast dose: 80 cc Visipaque 320 Mean Hounsfield unit values in the main pulmonary artery: 176.48 Radiation dose: Total exam DLP = 381.85 mGy-cm. This CT exam was performed using one or more of the following dose reduction techniques: Automated exposure control, adjustment of the mA and/or kV according to patient size, and/or use of iterative reconstruction technique. FINDINGS: PULMONARY ARTERIES: Unremarkable. No pulmonary embolism. AORTA: No large or central pulmonary emboli identified. Limitations of the current examination: Qualitatively and quantitatively based on Hounsfield unit values nondiagnostic examination beyond the segmental branches. LUNGS: Unremarkable. No nodule, mass or pulmonary consolidation. PLEURAL SPACES: Unremarkable. No effusion or pneuomothorax. HEART: Unremarkable. No cardiomegaly. No significant pericardial effusion. LYMPH NODES: No lymphadenopathy. BONES, CHEST WALL: Unremarkable. No fracture or destructive lesion OTHER FINDINGS: Enlarged left thyroid lobe with intrathoracic extension. IMPRESSION: Unremarkable CT pulmonary angiogram. No pulmonary embolus. Limitations of the current study. Suboptimal injections large bolus technique. Nondiagnostic assessment beyond segmental branch vessels. 1745p Pt with persistent chest pain and hypoxia. Will hospitalize for asthma exacerbation. DW Dr Batista FP resident. (Leela Acosta) Past Medical History - Medical History PMH: Anemia, Asthma, Bronchitis, COPD, HIV, Pneumonia Denies: Arthritis, CHF, HTN, Hypercholesterolemia, Hypothyroidism, Chronic Kidney Disease - Surgical History Surgical History: Cholecystectomy - Family History Family History: States: Unknown Family Hx - Social History Current smoker - smoking cessation education provided: No <Mark Wynn - Last Filed: 04/12/17 17:33> <Leela Acosta - Last Filed: 04/15/17 16:15> Vital Signs: Last Vital Signs Temp 98.4 F 04/15/17 12:22 Pulse 87 04/15/17 12:22 Resp 18 04/15/17 12:22 BP 123/75 04/15/17 12:22 Pulse Ox 99 04/15/17 12:22 - Home Medications Home Medications: Ambulatory Orders Medication Instructions Recorded Albuterol 0.083% [Albuterol 0.083% 3 ml IH Q8H PRN 05/23/16 Inhal Lily (2.5 mg/3 ml) UD] Albuterol HFA [Ventolin HFA 90 2 puff IH Q4H PRN 05/23/16 mcg/actuation (8 g)] Dolutegravir Sodium [Tivicay] 50 mg PO DAILY 05/23/16 Emtricitabine/Tenofovir (Tdf) 1 tab PO DAILY 05/23/16 [Truvada 200 mg-300 mg Tablet] Ferrous Sulfate [Feosol] 325 mg PO DAILY 05/23/16 Montelukast [Singulair] 10 mg PO HS 05/23/16 Cholecalciferol [Vitamin D 1000 IU] 1,000 unit PO DAILY 10/26/16 Docusate [Colace] 100 mg PO HS 10/26/16 Fluticasone/Vilanterol [Breo 1 puff IH DAILY 10/26/16 Ellipta 100-25 Mcg INH] Oxcarbazepine [Trileptal] 150 mg PO BID 10/26/16 Roflumilast [Daliresp] 500 mcg PO DAILY 10/26/16 Promethazine/Codeine 10 ml PO Q6 PRN #1 udc 10/31/16 [Phenergan/Codeine Oral Syrup] Montelukast [Singulair] 10 mg PO HS tab 04/15/17 Sulfamethoxazole/Trimethoprim 1 tab PO HS tab 04/15/17 [Bactrim DS Tab] predniSONE [predniSONE Tab] 20 mg PO DAILY 14 Days #14 tab 04/15/17 - Allergies Allergies/Adverse Reactions: Allergies Allergy/AdvReac Type Severity Reaction Status Date / Time procaine HCl [From Novocain] Allergy RASH Verified 10/26/16 12:11 shrimp Allergy RASH Verified 10/26/16 12:11 Curb-65 Severity Score - CURB-65 Severity Score Confusion: No Respiratory Rate greater than/equal to 30: Yes Systolic BP <90 or Diastolic BP less than/equal 60mmHg: No Age >64: No Curb-65 Score: 1 Percentage 30-day mortality: 2.7% <Mark Wynn - Last Filed: 04/12/17 17:33> Wells Criteria for PE - Wells Criteria for Pulmonary Embolism Clinical Signs and Symptoms of DVT: No P.E is #1 Diagnosis, or Equally Likely: No Heart Rate >100: No Immobilization at least 3 days;Surgery previous 4 weeks: No Hemoptysis: No Malignancy w/treatment within 6 months, or palliative: No Total Score: 0 <Mark Wynn - Last Filed: 04/12/17 17:33> Review of Systems ROS Statement: Except As Marked, All Systems Reviewed And Found Negative Constitutional: Negative for: Fever, Weakness Cardiovascular: Positive for: Chest Pain Respiratory: Positive for: Cough, Shortness of Breath, Wheezing <Mark Wynn - Last Filed: 04/12/17 17:33> Physical Exam - Reviewed Nursing Documentation Reviewed: Yes Vital Signs Reviewed: Yes - Physical Exam Appears: Positive for: Non-toxic, In Acute Distress. Negative for: No Acute Distress Skin: Positive for: Normal Color Eye Exam: Positive for: EOMI, PERRL ENT: Negative for: Nasal Congestion Neck: Positive for: Supple Cardiovascular/Chest: Positive for: Regular Rate, Rhythm. Negative for: Edema, Gallop, Murmur Respiratory: Positive for: Rhonchi, Wheezing, Respiratory Distress (moderate). Negative for: Decreased Breath Sounds, Plerual Rub Gastrointestinal/Abdominal: Positive for: Soft. Negative for: Tenderness, Guarding Back: Positive for: Normal Inspection. Negative for: L CVA Tenderness, R CVA Tenderness Extremity: Positive for: Capillary Refill. Negative for: Tenderness Neurologic/Psych: Positive for: Alert, Oriented. Negative for: Motor/Sensory Deficits <Mark Wynn - Last Filed: 04/12/17 17:33> - Laboratory Results Result Diagrams: 04/12/17 14:27 04/12/17 14:27 - ECG O2 Sat by Pulse Oximetry: 99 <Mark Wynn - Last Filed: 04/12/17 17:33> - Laboratory Results Result Diagrams: 04/13/17 05:20 04/12/17 14:27 <Leela Acosta - Last Filed: 04/15/17 16:15> Nebulizer Treatments/Peak Flow - Duonebs Number of Bronchodilator Doses given?: 3 - Steroid Treatment Steroid: IV <Mark Wynn - Last Filed: 04/12/17 17:33> Medical Decision Making <Mark Wynn - Last Filed: 04/12/17 17:33> <Leela Acosta - Last Filed: 04/15/17 16:15> Medical Decision Making: SOB/Chest pain Asthma exacerbation R/O Pneumonia EKG no acute changes RR elevated. rest VS WNL F/U CBC/CMP F/U CXR Duonebs x3 Solumedrol IV 125 mg once Reassessed: Slightly improved but still SOB. Mg IV given IV and Flexeril 10 mg PO ABG will revaluate Patient SOB markedly improved but still c/o CP when she moves or deep inspiration PO2 66 -CT angio to r/o PE (Mark Wynn) Disposition - Disposition Disposition Time: 17:30 Patient Signed Over To: Leela Acosta (Pending Chest CT Angio) <Mark Wynn - Last Filed: 04/12/17 17:33> - Pt Status Changed To: Hospital Disposition Of: Observation - POA Present On Arrival: None <Leela Acosta - Last Filed: 04/15/17 16:15> - Clinical Impression Clinical Impression: Asthma exacerbation, Hypoxia, Atypical chest pain - Disposition Condition: FAIR
[2017-04-12 14:34] LABS: BASO % 0.7 % (0.0-2.0); EOS # 0.4 K/uL (0.0-0.7); EOS % 7.7 % (0.0-4.0); LYMPH # 1.5 K/uL (1.0-4.3); LYMPH % 32.5 % (20.0-40.0); MEAN CELL VOLUME 90.1 fl (81.0-99.0); MEAN CORPUSCULAR HEMOGLOBIN 28.8 pg (27.0-31.0); MONO # 0.8 K/uL (0.0-0.8); MONO % 16.2 % (0.0-10.0); NEUT % 42.9 % (50.0-75.0); NRBC % 0.1 % (0.0-0.0); RED CELL DISTRIBUTION WIDTH 13.5 % (11.5-14.5); WHITE BLOOD COUNT 4.7 K/uL (4.8-10.8)
[2017-04-12 14:43] LABS: ALKALINE PHOSPHATASE 94 U/L (38-126); ALT/SGPT 25 U/L (9-52); AST/SGOT 26 U/L (14-36); BILIRUBIN,TOTAL 0.7 mg/dl (0.2-1.3); BLOOD UREA NITROGEN 13 mg/dl (7-17); CALCIUM 9.1 mg/dL (8.4-10.2); CARBON DIOXIDE 28 mmol/L (22-30); CHLORIDE 105 mmol/L (98-107); GFR AFRICAN-AMERICAN > 60; GLUCOSE,RANDOM 86 mg/dL (65-105); POTASSIUM 4.3 MMOL/L (3.6-5.0); SODIUM 141 mmol/l (132-148); TOTAL PROTEIN 8.8 G/DL (6.3-8.2)
[2017-04-12 14:45] LABS: ALB/GLOB RATIO 0.9 (1.0-2.1)
[2017-04-12] MEDS ORDERED: Magnesium Sulfate 2 gm/50 ml 2 GM/50 ML BAG IVPB ONE (14:56)
--- NOTE | 2017-04-12 14:58 | RAD ---
HISTORY: SOB, Chest pain COMPARISON: Chest radiograph dated 10/26/2016 TECHNIQUE: Chest PA and lateral FINDINGS: LUNGS: No active pulmonary disease. PLEURA: No significant pleural effusion identified. No pneumothorax apparent. CARDIOVASCULAR: Atherosclerotic aortic calcifications. Cardiomediastinal silhouette within normal limits. OSSEOUS STRUCTURES: No significant abnormalities. VISUALIZED UPPER ABDOMEN: Right upper quadrant surgical clips redemonstrated. OTHER FINDINGS: None. IMPRESSION: No active disease.
[2017-04-12] MEDS ORDERED: Magnesium Sulfate 2 gm/50 ml 2 GM/50 ML BAG ONE (15:04)
[2017-04-12 15:45] LABS: ABG ALLEN TEST YES; ARTERIAL BLOOD GAS HCO3 25.4 mmol/L (21-28); ARTERIAL BLOOD GAS PH 7.41 (7.35-7.45); ARTERIAL BLOOD GAS PO2 66 mm/Hg (80-100)
[2017-04-12] MEDS ORDERED: Lidocaine 5% Patch TD STA (16:20)
[2017-04-12] MEDS ORDERED: Sodium Chloride 0.9% 50 ML IV ONE (16:46)
[2017-04-12] MEDS ORDERED: Iodixanol 320 MG/ML 100 ML BOTTLE IV ONE (16:46)
[2017-04-12] MEDS ORDERED: Lidocaine 5% Patch TD ONE (17:40)
--- NOTE | 2017-04-12 17:48 | CT ---
PROCEDURE: CT Chest with contrast (Pulmonary Angiogram) HISTORY: pleuritic RIGHT sided CP and hypoxia COMPARISON: None available. TECHNIQUE: Axial computed tomography images were obtained of the chest in the pulmonary arterial phase of enhancement. Coronal and sagittal reformatted images were created and reviewed. Maximum intensity projection (MIP) reconstructed images in the following planes: Axial. Intravenous contrast dose: 80 cc Visipaque 320 Mean Hounsfield unit values in the main pulmonary artery: 176.48 Radiation dose: Total exam DLP = 381.85 mGy-cm. This CT exam was performed using one or more of the following dose reduction techniques: Automated exposure control, adjustment of the mA and/or kV according to patient size, and/or use of iterative reconstruction technique. FINDINGS: PULMONARY ARTERIES: Unremarkable. No pulmonary embolism. AORTA: No large or central pulmonary emboli identified. Limitations of the current examination: Qualitatively and quantitatively based on Hounsfield unit values nondiagnostic examination beyond the segmental branches. LUNGS: Unremarkable. No nodule, mass or pulmonary consolidation. PLEURAL SPACES: Unremarkable. No effusion or pneuomothorax. HEART: Unremarkable. No cardiomegaly. No significant pericardial effusion. LYMPH NODES: No lymphadenopathy. BONES, CHEST WALL: Unremarkable. No fracture or destructive lesion OTHER FINDINGS: Enlarged left thyroid lobe with intrathoracic extension. IMPRESSION: Unremarkable CT pulmonary angiogram. No pulmonary embolus. Limitations of the current study. Suboptimal injections large bolus technique. Nondiagnostic assessment beyond segmental branch vessels.
[2017-04-12] MEDS ORDERED: Albuterol-Ipratrop 3 mg / 0.5 (3 ml) UD INH PRN (18:51)
[2017-04-12] MEDS ORDERED: Promethazine/Cod 6.25mg-10mg/5ml Syr UD PO PRN (20:45)
--- NOTE | 2017-04-12 20:45 | CP.PCM.HP ---
History of Present Illness - History of Present Illness History of Present Illness: 56 year old female presented with 3 day history of worsening right anterior chest pain that is sharp in nature, with associated dyspnea and non productive cough. Her chest pain is no exacerbated by arm movement and is not reproducible , but is positional, worse with leaning forward and lying down. Denies any fevers, chills, abdominal pain, nausea, vomiting or diarrhea. No alleviating factors. She took some tylenol without much improvement. She follows up with pulmonology regularly. PMD: Dr. Boyer Medical Assembler: Dr. Yee PMH: Asthma, AIDS, trigeminal neuralgia,thyroid nodule, lung nodule Medications reviewed in [facility]: ART and prophylactic meds: Bactrim DS, Dolutegravir, Prezista, Norvir, Edurant Asthma: Albuterol, Singular, Roflumilast, Ventolin, Breo Others: Marinol Allergies: procaine Social: no etoh, tobacco, illicit drug use Surgical Hx: , gallbladder removal Present on Admission - Present on Admission Any Indicators Present on Admission: No Review of Systems - Constitutional Constitutional: absent: Night Sweats, Weight Loss - EENT Eyes: absent: Blurred Vision Ears: absent: Ear Discharge, Dizziness Nose/Mouth/Throat: absent: Nasal Congestion, Sore Throat - Cardiovascular Cardiovascular: Chest Pain at Rest (right anterior), Dyspnea. absent: Chest Pain with Activity, Pain Radiating to Arm/Neck/Jaw, Leg Edema, Palpitations, Radiating Pain, Rapid Heart Rate - Respiratory Respiratory: Cough. absent: Hemoptysis, Chest Congestion, Excessive Mucous Production - Gastrointestinal Gastrointestinal: absent: Abdominal Pain, Change in Stool Character, Diarrhea, Nausea, Vomiting - Neurological Neurological: absent: Dizziness Past Patient History - Infectious Disease Hx of Infectious Diseases: None - Past Medical History & Family History Past Medical History?: Yes - Past Social History Smoking Status: Never Smoked - CARDIAC Hx Congestive Heart Failure: No Hx Hypercholesterolemia: No Hx Hypertension: No - PULMONARY Hx Asthma: Yes Hx Bronchitis: Yes Hx Pneumonia: Yes - NEUROLOGICAL Hx Neurological Disorder: Yes (trigeminal neuralgia) - HEENT Hx HEENT Problems: No - RENAL Hx Chronic Kidney Disease: No - ENDOCRINE/METABOLIC Hx Hypothyroidism: No - HEMATOLOGICAL/ONCOLOGICAL Hx Anemia: Yes Hx Human Immunodeficiency Virus (HIV): Yes - INTEGUMENTARY Hx Dermatological Problems: Yes Hx Eczema: Yes Other/Comment: SKIN DISCOLORATION BOTH ARM - GENITOURINARY/GYNECOLOGICAL Hx Genitourinary Disorders: No - PSYCHIATRIC Hx Psychophysiologic Disorder: No Hx Substance Use: No - SURGICAL HISTORY Hx Cholecystectomy: Yes - ANESTHESIA Hx Anesthesia: Yes Hx Anesthesia Reactions: No Hx Malignant Hyperthermia: No Meds Allergies/Adverse Reactions: Allergies Allergy/AdvReac Type Severity Reaction Status Date / Time procaine HCl [From Novocain] Allergy RASH Verified 10/26/16 12:11 shrimp Allergy RASH Verified 10/26/16 12:11 Physical Exam - Constitutional Appears: Non-toxic (mild respiratory distress) - Head Exam Head Exam: ATRAUMATIC, NORMAL INSPECTION, NORMOCEPHALIC - Eye Exam Eye Exam: Normal appearance, PERRL - ENT Exam ENT Exam: Mucous Membranes Moist - Respiratory Exam Respiratory Exam: Clear to Auscultation Bilateral, Prolonged Expiratory Phase, Respiratory Distress (mild). absent: Decreased Breath Sounds, Rales, Rhonchi Additional comments: tachypneic - Cardiovascular Exam Cardiovascular Exam: REGULAR RHYTHM, +S1, +S2 - GI/Abdominal Exam GI & Abdominal Exam: Normal Bowel Sounds, Soft. absent: Distended, Guarding, Tenderness - Rectal Exam Rectal Exam: Deferred - Extremities Exam Extremities exam: Negative for: pedal edema - Back Exam Back exam: NORMAL INSPECTION - Neurological Exam Neurological exam: Alert, CN II-XII Intact, Oriented x3 - Psychiatric Exam Psychiatric exam: Normal Affect, Normal Mood - Skin Skin Exam: Dry, Intact, Normal Color, Warm Results - Vital Signs Recent Vital Signs: Last Vital Signs Temp 98.1 F 04/12/17 13:45 Pulse 85 04/12/17 14:22 Resp 23 04/12/17 14:34 BP 128/82 04/12/17 13:45 Pulse Ox 99 04/12/17 17:33 - Labs Result Diagrams: 04/12/17 14:27 04/12/17 14:27 Labs: Laboratory Results - last 24 hr 04/12/17 04/12/17 04/12/17 14:27 14:27 15:30 WBC 4.7 L RBC 3.99 Hgb 11.5 L Hct 36.0 MCV 90.1 MCH 28.8 MCHC 32.0 L RDW 13.5 Plt Count 321 MPV 7.0 L Neut % (Auto) 42.9 L Lymph % (Auto) 32.5 Coffey % (Auto) 16.2 H Eos % (Auto) 7.7 H Baso % (Auto) 0.7 Neut # 2.0 Lymph # 1.5 Coffey # 0.8 Eos # 0.4 Baso # 0.0 pCO2 40 pO2 66 L HCO3 25.4 ABG pH 7.41 ABG Total CO2 26.6 ABG O2 Saturation 97.5 ABG Base Excess 0.7 Darryl Test Yes ABG Potassium 3.1 L A-a O2 Difference 34.0 Glucose 130 H Lactate 2.0 FiO2 21.0 Sodium 141 138.0 Potassium 4.3 Chloride 105 107.0 Carbon Dioxide 28 Anion Gap 12 BUN 13 Creatinine 1.1 Est GFR ( Amer) > 60 Est GFR (Non-Af Amer) 52 Random Glucose 86 Calcium 9.1 Total Bilirubin 0.7 AST 26 ALT 25 Alkaline Phosphatase 94 Troponin I < 0.0120 Total Protein 8.8 H Albumin 4.2 Globulin 4.5 H Albumin/Globulin Ratio 0.9 L Arterial Blood Potassium 3.1 L 04/12/17 19:57 WBC RBC Hgb Hct MCV MCH MCHC RDW Plt Count MPV Neut % (Auto) Lymph % (Auto) Coffey % (Auto) Eos % (Auto) Baso % (Auto) Neut # Lymph # Coffey # Eos # Baso # pCO2 pO2 HCO3 ABG pH ABG Total CO2 ABG O2 Saturation ABG Base Excess Darryl Test ABG Potassium A-a O2 Difference Glucose Lactate FiO2 Sodium Potassium Chloride Carbon Dioxide Anion Gap BUN Creatinine Est GFR ( Amer) Est GFR (Non-Af Amer) Random Glucose Calcium Total Bilirubin AST ALT Alkaline Phosphatase Troponin I < 0.0120 Total Protein Albumin Globulin Albumin/Globulin Ratio Arterial Blood Potassium Assessment & Plan (1) Chest pain Assessment and Plan: A:56 year old female presented with 3 day history of worsening right anterior chest pain that is sharp in nature, with associated dyspnea and non productive cough admitted due to asthma exacerbation. Patient remained tachypneic after treatment with 3 duonebs, magnesium and solumedrol. Etiology of chest pain unknown, troponins negative x 2. May be musculoskeletal in nature due to coughing. Chest CTA negative for PE or acute disease No leukocytosis or fever to suggest infectious etiology, however the patient is immunocompromised given her HIV+ status, CD4 137, HIV viral load 149 (03/07/2017 ). P: Started on Levaquin 500mg IV as per pulmonology. O2 via nasal cannula PRN Continue with duoneb treatments q4, albuterol PRN Prednisone 40mg daily monitor respiratory status Case d/w Dr. Boyer and Dr. Yee Status: Acute (2) Severe asthma with acute exacerbation Status: Chronic (3) DVT prophylaxis Status: Chronic (4) AIDS Status: Chronic
[2017-04-12] MEDS: Tmp-Smz 800 mg-160 mg DS Tab PO SCH (23:16)
[2017-04-13 07:37] LABS: BASO % 0.4 % (0.0-2.0); HEMATOCRIT 36.1 % (34.0-47.0); LYMPH # 0.9 K/uL (1.0-4.3); LYMPH % 10.2 % (20.0-40.0); MEAN CELL VOLUME 88.2 fl (81.0-99.0); MEAN CORPUSCULAR HEMOGLOBIN 29.6 pg (27.0-31.0); MEAN CORPUSCULAR HGB CONC 33.6 g/dL (33.0-37.0); MONO # 0.1 K/uL (0.0-0.8); MONO % 1.1 % (0.0-10.0); NEUT # 7.5 K/uL (1.8-7.0); NEUT % 88.3 % (50.0-75.0); RED CELL DISTRIBUTION WIDTH 13.1 % (11.5-14.5); WHITE BLOOD COUNT 8.5 K/uL (4.8-10.8)
[2017-04-13] MEDS ORDERED: Home Med 1 UNIT PO SCH (09:00)
[2017-04-13] MEDS: Enoxaparin 40 mg Syringe SC SCH (09:35)
[2017-04-13] MEDS: levoFLOXacin 500 mg in D5W 500 MG/100 ML BAG IVPB SCH (09:37)
--- NOTE | 2017-04-13 09:40 | CP.PCM.PN ---
Subjective - Date & Time of Evaluation Date of Evaluation: 04/13/17 Time of Evaluation: 09:38 - Subjective Subjective: 56 YO F is seen eating her breakfast this morning. States her breathing is getting better. Pt is able to finish her sentences but is noted to having some increased work of breathing. Pt has not had any duoneb treatments since last night. However to the bond underwriter patient appears to be at baseline currently as has been seen oupatient. Objective - Vital Signs/Intake and Output Vital Signs (last 24 hours): Temp Pulse Resp BP Pulse Ox 97.3 F L 60 18 125/77 98 04/13/17 08:17 04/13/17 09:24 04/13/17 08:17 04/13/17 08:17 04/13/17 08:17 - Medications Medications: Current Medications Albuterol/Ipratropium (Duoneb 3 Mg/0.5 Mg (3 Ml) Ud) 3 ml INH RQ4 PRN PRN Reason: Shortness of Breath Last Admin: 04/13/17 09:23 Dose: 3 ml Cholecalciferol (Vitamin D) 1,000 iu PO DAILY REPLACED BY [facility] Docusate Sodium (Colace) 100 mg PO HS REPLACED BY [facility] Last Admin: 04/12/17 23:16 Dose: 100 mg Dolutegravir Sodium (Tivicay) 50 mg PO DAILY [facility] Enoxaparin Sodium (Lovenox) 40 mg SC DAILY REPLACED BY [facility] PRN Reason: Protocol Ferrous Sulfate (Feosol) 325 mg PO DAILY REPLACED BY [facility] Home Med (Home Med) 0 unit PO DAILY REPLACED BY [facility] Levofloxacin/Dextrose (Levaquin 500mg) 500 mg in 100 mls @ 100 mls/hr IVPB DAILY [facility] PRN Reason: Protocol Ketorolac Tromethamine (Toradol) 15 mg IVP Q6 PRN PRN Reason: Pain, moderate (4-7) Montelukast Sodium (Singulair) 10 mg PO HS REPLACED BY [facility] Last Admin: 04/12/17 23:16 Dose: 10 mg Prednisone (Prednisone Tab) 40 mg PO DAILY [facility] Promethazine HCl/Codeine (Phenergan/Codeine Oral Syrup) 10 ml PO Q6 PRN PRN Reason: Cough Ritonavir (Norvir) 100 mg PO DAILY [facility] Roflumilast (Daliresp) 500 mcg PO DAILY [facility] Fluticasone/Salmeterol (Advair Diskus 100/50) 1 puff IH Q12H [facility] Trimethoprim/Sulfamethoxazole (Bactrim Ds Tab) 1 tab PO HS [facility] PRN Reason: Protocol Last Admin: 04/12/17 23:16 Dose: 1 tab - Labs Labs: 04/13/17 05:20 04/12/17 14:27 - Constitutional Appears: No Acute Distress - Head Exam Head Exam: NORMAL INSPECTION - Respiratory Exam Respiratory Exam: Wheezes (diffuse wheezing heard b/l), Respiratory Distress. absent: Rhonchi - Cardiovascular Exam Cardiovascular Exam: REGULAR RHYTHM, +S1, +S2 - GI/Abdominal Exam GI & Abdominal Exam: Soft, Normal Bowel Sounds. absent: Tenderness - Extremities Exam Extremities Exam: absent: Calf Tenderness - Neurological Exam Neurological Exam: Alert, Awake, Oriented x3 - Skin Skin Exam: Normal Color, Warm Assessment and Plan - Assessment and Plan (Free Text) Assessment: 56 YO F w/ h/o HIV, chronic asthma was admitted for an asthma exacerbation. (1) Chest pain Assessment and Plan: - possibly musculoskeltal secondary to coughing - troponin x 2 negative - Chest CTA negative for PE (2) Severe asthma with acute exacerbation - 3 duonebs, magnesium and solumedrol given in ER - O2 via nasal cannula PRN - Continue hjome med Fluticasone/ Salmeterol - Continue with duoneb treatments q4, albuterol PRN - Prednisone 40 mg PO daily ( Day 1) - No leukocytosis or fever. Patients WBC went up from 4.7 to 8 but most likely secondary to steroids. - Levaquin 500mg IV as per pulmonology. -= Pulm consult appreciated (3) DVT prophylaxis - Lovenox (4) AIDS - Continue home meds - Continue w/ prophylactic medications - HIV+ status, CD4 137, HIV viral load 149 (03/07/2017).
--- NOTE | 2017-04-13 10:16 | CARD ---
APPROVED REPORT EKG Measurement Heart [id number] <Conclusion> Normal sinus rhythm Normal ECG
[2017-04-13] MEDS: Fluticasone-Salmeterol 100-50mcg Diskus IH SCH ×2 (11:24→21:11)
[2017-04-13] MEDS: Albuterol-Ipratrop 3 mg / 0.5 (3 ml) UD INH SCH ×2 (15:24→19:12)
[2017-04-13] MEDS: Tmp-Smz 800 mg-160 mg DS Tab PO SCH (22:12)
[2017-04-14] MEDS: Albuterol-Ipratrop 3 mg / 0.5 (3 ml) UD INH SCH ×6 (00:19→19:23)
[2017-04-14] MEDS: levoFLOXacin 500 mg in D5W 500 MG/100 ML BAG IVPB SCH (09:16)
[2017-04-14] MEDS: Fluticasone-Salmeterol 100-50mcg Diskus IH SCH ×2 (09:17→21:04)
[2017-04-14] MEDS: Enoxaparin 40 mg Syringe SC SCH (09:18)
--- NOTE | 2017-04-14 11:25 | CP.PCM.PN ---
Subjective - Date & Time of Evaluation Date of Evaluation: 04/14/17 Time of Evaluation: 11:25 - Subjective Subjective: CHEST PAIN HAS RESOLVED STILL COUGHING AND WHEEZING BUT FEELS BETTER Objective - Vital Signs/Intake and Output Vital Signs (last 24 hours): Temp Pulse Resp BP Pulse Ox 98 F 102 H 18 119/71 98 04/14/17 08:27 04/14/17 08:27 04/14/17 08:27 04/14/17 08:27 04/14/17 08:27 - Medications Medications: Current Medications Albuterol/Ipratropium (Duoneb 3 Mg/0.5 Mg (3 Ml) Ud) 3 ml INH RQ4 [facility] Last Admin: 04/14/17 11:05 Dose: 3 ml Cholecalciferol (Vitamin D) 1,000 iu PO DAILY [facility] Last Admin: 04/14/17 09:18 Dose: 1,000 iu Docusate Sodium (Colace) 100 mg PO HS [facility] Last Admin: 04/13/17 22:12 Dose: 100 mg Dolutegravir Sodium (Tivicay) 50 mg PO DAILY [facility] Last Admin: 04/14/17 09:18 Dose: 50 mg Enoxaparin Sodium (Lovenox) 40 mg SC DAILY [facility] PRN Reason: Protocol Last Admin: 04/14/17 09:18 Dose: 40 mg Ferrous Sulfate (Feosol) 325 mg PO DAILY [facility] Last Admin: 04/14/17 09:18 Dose: 325 mg Home Med (Home Med) 0 unit PO DAILY [facility] Levofloxacin/Dextrose (Levaquin 500mg) 500 mg in 100 mls @ 100 mls/hr IVPB DAILY [facility] PRN Reason: Protocol Last Admin: 04/14/17 09:16 Dose: 100 mls/hr Ketorolac Tromethamine (Toradol) 15 mg IVP Q6 PRN PRN Reason: Pain, moderate (4-7) Last Admin: 04/13/17 23:00 Dose: 15 mg Montelukast Sodium (Singulair) 10 mg PO HS [facility] Last Admin: 04/13/17 22:13 Dose: 10 mg Prednisone (Prednisone Tab) 40 mg PO DAILY [facility] Last Admin: 04/14/17 09:18 Dose: 40 mg Promethazine HCl/Codeine (Phenergan/Codeine Oral Syrup) 10 ml PO Q6 PRN PRN Reason: Cough Last Admin: 04/13/17 09:34 Dose: 10 ml Ritonavir (Norvir) 100 mg PO DAILY [facility] Last Admin: 04/14/17 09:18 Dose: 100 mg Roflumilast (Daliresp) 500 mcg PO DAILY [facility] Last Admin: 04/14/17 09:18 Dose: 500 mcg Fluticasone/Salmeterol (Advair Diskus 100/50) 1 puff IH Q12H [facility] Last Admin: 04/14/17 09:17 Dose: 1 puff Trimethoprim/Sulfamethoxazole (Bactrim Ds Tab) 1 tab PO HS [facility] PRN Reason: Protocol Last Admin: 04/13/17 22:12 Dose: 1 tab - Labs Labs: 04/13/17 05:20 04/12/17 14:27 - Constitutional Appears: Chronically Ill - Head Exam Head Exam: ATRAUMATIC, NORMAL INSPECTION, NORMOCEPHALIC - Eye Exam Eye Exam: EOMI, Normal appearance, PERRL Pupil Exam: NORMAL ACCOMODATION, PERRL - ENT Exam ENT Exam: Mucous Membranes Moist, Normal Exam - Neck Exam Neck Exam: Full ROM, Normal Inspection. absent: Lymphadenopathy - Respiratory Exam Respiratory Exam: Decreased Breath Sounds, Prolonged Expiratory Phase, Rales, Wheezes, NORMAL BREATHING PATTERN - Cardiovascular Exam Cardiovascular Exam: REGULAR RHYTHM, +S1, +S2. absent: Murmur - GI/Abdominal Exam GI & Abdominal Exam: Soft, Normal Bowel Sounds. absent: Tenderness - Rectal Exam Rectal Exam: NORMAL INSPECTION - Extremities Exam Extremities Exam: Full ROM, Normal Capillary Refill, Normal Inspection. absent : Joint Swelling, Pedal Edema - Back Exam Back Exam: NORMAL INSPECTION - Neurological Exam Neurological Exam: Alert, Awake, CN II-XII Intact, Normal Gait, Oriented x3 - Psychiatric Exam Psychiatric exam: Normal Affect, Normal Mood - Skin Skin Exam: Dry, Intact, Normal Color, Warm Assessment and Plan - Assessment and Plan (Free Text) Assessment: ACUTE EXACERBATION OF CHRONIC PERSISTENT ASTHMA HX OF HIV DZ Plan: TAPER STEROIDS CONTINUE O2 AND BRONCHODILATOR RX
--- NOTE | 2017-04-14 18:42 | CP.PCM.PN ---
Subjective - Date & Time of Evaluation Date of Evaluation: 04/14/17 Time of Evaluation: 09:40 - Subjective Subjective: 56 yo F was seen and examined at bedside. States her breathing is getting better. Pt is able to finish her sentences but is noted to having some increased work of breathing after deep breaths. Patient states going to the bathroom makes her short of breath. Patient states this is worse from baseline. Patient currently on O2 home oxygen though states doesn't use it consistently, only when she is out of breath. Objective - Vital Signs/Intake and Output Vital Signs (last 24 hours): Temp Pulse Resp BP Pulse Ox 98.3 F 106 H 20 118/67 97 04/14/17 15:50 04/14/17 15:50 04/14/17 15:50 04/14/17 15:50 04/14/17 15:50 Intake and Output: 04/14/17 04/14/17 06:59 18:59 Intake Total 910 Balance 910 - Medications Medications: Current Medications Albuterol/Ipratropium (Duoneb 3 Mg/0.5 Mg (3 Ml) Ud) 3 ml INH RQ4 [facility] Last Admin: 04/14/17 15:40 Dose: 3 ml Cholecalciferol (Vitamin D) 1,000 iu PO DAILY [facility] Last Admin: 04/14/17 09:18 Dose: 1,000 iu Docusate Sodium (Colace) 100 mg PO HS [facility] Last Admin: 04/13/17 22:12 Dose: 100 mg Dolutegravir Sodium (Tivicay) 50 mg PO DAILY [facility] Last Admin: 04/14/17 09:18 Dose: 50 mg Enoxaparin Sodium (Lovenox) 40 mg SC DAILY [facility] PRN Reason: Protocol Last Admin: 04/14/17 09:18 Dose: 40 mg Ferrous Sulfate (Feosol) 325 mg PO DAILY [facility] Last Admin: 04/14/17 09:18 Dose: 325 mg Home Med (Home Med) 0 unit PO DAILY [facility] Levofloxacin/Dextrose (Levaquin 500mg) 500 mg in 100 mls @ 100 mls/hr IVPB DAILY [facility] PRN Reason: Protocol Last Admin: 04/14/17 09:16 Dose: 100 mls/hr Ketorolac Tromethamine (Toradol) 15 mg IVP Q6 PRN PRN Reason: Pain, moderate (4-7) Last Admin: 04/13/17 23:00 Dose: 15 mg Montelukast Sodium (Singulair) 10 mg PO HS [facility] Last Admin: 04/13/17 22:13 Dose: 10 mg Prednisone (Prednisone Tab) 40 mg PO DAILY [facility] Last Admin: 04/14/17 09:18 Dose: 40 mg Promethazine HCl/Codeine (Phenergan/Codeine Oral Syrup) 10 ml PO Q6 PRN PRN Reason: Cough Last Admin: 04/13/17 09:34 Dose: 10 ml Ritonavir (Norvir) 100 mg PO DAILY [facility] Last Admin: 04/14/17 09:18 Dose: 100 mg Roflumilast (Daliresp) 500 mcg PO DAILY [facility] Last Admin: 04/14/17 09:18 Dose: 500 mcg Fluticasone/Salmeterol (Advair Diskus 100/50) 1 puff IH Q12H [facility] Last Admin: 04/14/17 09:17 Dose: 1 puff Trimethoprim/Sulfamethoxazole (Bactrim Ds Tab) 1 tab PO HS [facility] PRN Reason: Protocol Last Admin: 04/13/17 22:12 Dose: 1 tab - Labs Labs: 04/13/17 05:20 04/12/17 14:27 - Constitutional Appears: Well, Non-toxic, No Acute Distress - Head Exam Head Exam: ATRAUMATIC, NORMAL INSPECTION, NORMOCEPHALIC - Respiratory Exam Respiratory Exam: Wheezes (improved though mildly present), NORMAL BREATHING PATTERN - Cardiovascular Exam Cardiovascular Exam: REGULAR RHYTHM, +S1, +S2. absent: Murmur - GI/Abdominal Exam GI & Abdominal Exam: Soft, Normal Bowel Sounds. absent: Tenderness - Extremities Exam Extremities Exam: Normal Inspection - Back Exam Back Exam: NORMAL INSPECTION - Neurological Exam Neurological Exam: Alert, Awake - Psychiatric Exam Psychiatric exam: Normal Affect, Normal Mood - Skin Skin Exam: Dry, Intact, Normal Color, Warm Assessment and Plan - Assessment and Plan (Free Text) Assessment: 56 yo F w/ h/o HIV-AIDS, chronic asthma was admitted for an asthma exacerbation. Improving though symptoms still present. Plan: (1) Severe asthma with acute exacerbation - 3 duonebs, magnesium and solumedrol given in ER - O2 via nasal cannula PRN - Continue home med Fluticasone/ Salmeterol - Continue with duoneb treatments q4, albuterol [facility] - Prednisone 40 mg PO daily ( Day 2) - No leukocytosis or fever. - Levaquin 500mg IV as per pulmonology. - Pulm consult appreciated (2) Chest pain - possibly musculoskeltal secondary to coughing - troponin x 2 negative - Chest CTA negative for PE (3) AIDS - Continue home meds - Continue w/ prophylactic medications - HIV+ status, CD4 137, HIV viral load 149 (03/07/2017). (4) DVT prophylaxis - Lovenox
[2017-04-14] MEDS: Tmp-Smz 800 mg-160 mg DS Tab PO SCH (21:03)
[2017-04-15] MEDS: Albuterol-Ipratrop 3 mg / 0.5 (3 ml) UD INH SCH ×5 (00:14→15:13)
[2017-04-15 08:07] VITALS: RESP 18
[2017-04-15] MEDS: levoFLOXacin 500 mg in D5W 500 MG/100 ML BAG IVPB SCH (08:50)
[2017-04-15] MEDS: Enoxaparin 40 mg Syringe SC SCH (08:51)
[2017-04-15] MEDS: Fluticasone-Salmeterol 100-50mcg Diskus IH SCH (08:51)
--- NOTE | 2017-04-15 08:51 | CON ---
DATE: HISTORY OF PRESENT ILLNESS: Ms. Luciano is a 56-year-old female who was referred by the [facility] practice team because of shortness of breath, chest pain, and cough for the past few days prior to presentation. She is admitted for workup and therapy. PAST MEDICAL HISTORY: Remarkable for HIV infection, trigeminal neuralgia, pulmonary nodules, bronchiectasis, chronic persistent asthma. FAMILY HISTORY: Noncontributory. SOCIAL HISTORY: She denies smoking or alcohol use and does not use drugs and lives at home with her family. REVIEW OF SYSTEMS: Remarkable for chronic persistent cough with shortness of breath, exercise intolerance. PHYSICAL EXAMINATION: GENERAL: Patient is awake, alert, oriented. Still has some chest discomfort, but indicates that she is much better compared to the night of admission. VITAL SIGNS: Blood pressure 125/77 with a pulse of 60, respiratory rate is 18. She is febrile. O2 sat 98% on nasal cannula oxygen. SKIN: Shows fair turgor. Pupils are equal and reactive to light and accommodation. JVP flat. Mouth shows fair hygiene with mucous engorgement of pharynx. LUNGS: Poor aeration bilaterally with audible wheezing and rales. HEART: S1 and S2. No chest wall tenderness appreciated. GENITALIA: Normal. EXTREMITIES: Normal. RECTAL: Exam is deferred. CENTRAL NERVOUS SYSTEM: Exam grossly intact. LABORATORY DATA: Remarkable for WBC of 8.5, hemoglobin 12.1, platelet count of 343,000. Sodium 141, potassium 4.3, BUN of 13, creatinine 1.1, troponin less than 0.0120. Arterial blood gas pH 7.41, pCO2 of 40, pO2 of 66, O2 sat 97.5. Chest x-ray and CAT scan of the chest, essentially unremarkable. Negative for acute pulmonary embolism. EKG, normal sinus rhythm. IMPRESSION: Acute exacerbation of asthma; chest pain, probably typical but coronary artery disease has to be ruled out. History of human immunodeficiency virus infection, history of thyroid disease. PLAN: Intravenous steroids as well as bronchodilators, oxygen therapy, analgesics for pain. May need cardiac evaluation if pain continues. We will continue to follow with you. Alen Yee MD [facility] # [phone]
--- NOTE | 2017-04-15 08:53 | CP.PCM.PN ---
Subjective - Date & Time of Evaluation Date of Evaluation: 04/15/17 Time of Evaluation: 08:53 - Subjective Subjective: CLINICALLY IMPROVED CHEST PAINS RESOLVED SOB IMPROVED[BACK TO BASELINE WITH AUDIBLE WHEEZING] Objective - Vital Signs/Intake and Output Vital Signs (last 24 hours): Temp Pulse Resp BP Pulse Ox 97.7 F 77 18 136/78 100 04/15/17 08:00 04/15/17 08:00 04/15/17 08:00 04/15/17 08:00 04/15/17 08:00 - Medications Medications: Current Medications Albuterol/Ipratropium (Duoneb 3 Mg/0.5 Mg (3 Ml) Ud) 3 ml INH RQ4 [facility] Last Admin: 04/15/17 07:59 Dose: 3 ml Cholecalciferol (Vitamin D) 1,000 iu PO DAILY [facility] Last Admin: 04/14/17 09:18 Dose: 1,000 iu Docusate Sodium (Colace) 100 mg PO HS [facility] Last Admin: 04/14/17 21:03 Dose: 100 mg Dolutegravir Sodium (Tivicay) 50 mg PO DAILY [facility] Last Admin: 04/14/17 09:18 Dose: 50 mg Enoxaparin Sodium (Lovenox) 40 mg SC DAILY [facility] PRN Reason: Protocol Last Admin: 04/14/17 09:18 Dose: 40 mg Ferrous Sulfate (Feosol) 325 mg PO DAILY [facility] Last Admin: 04/14/17 09:18 Dose: 325 mg Home Med (Home Med) 0 unit PO DAILY [facility] Levofloxacin/Dextrose (Levaquin 500mg) 500 mg in 100 mls @ 100 mls/hr IVPB DAILY [facility] PRN Reason: Protocol Last Admin: 04/14/17 09:16 Dose: 100 mls/hr Ketorolac Tromethamine (Toradol) 15 mg IVP Q6 PRN PRN Reason: Pain, moderate (4-7) Last Admin: 04/13/17 23:00 Dose: 15 mg Montelukast Sodium (Singulair) 10 mg PO HS [facility] Last Admin: 04/14/17 21:04 Dose: 10 mg Prednisone (Prednisone Tab) 40 mg PO DAILY [facility] Last Admin: 04/14/17 09:18 Dose: 40 mg Promethazine HCl/Codeine (Phenergan/Codeine Oral Syrup) 10 ml PO Q6 PRN PRN Reason: Cough Last Admin: 04/13/17 09:34 Dose: 10 ml Ritonavir (Norvir) 100 mg PO DAILY [facility] Last Admin: 04/14/17 09:18 Dose: 100 mg Roflumilast (Daliresp) 500 mcg PO DAILY [facility] Last Admin: 04/14/17 09:18 Dose: 500 mcg Fluticasone/Salmeterol (Advair Diskus 100/50) 1 puff IH Q12H [facility] Last Admin: 04/14/17 21:04 Dose: 1 puff Trimethoprim/Sulfamethoxazole (Bactrim Ds Tab) 1 tab PO HS [facility] PRN Reason: Protocol Last Admin: 04/14/17 21:03 Dose: 1 tab - Labs Labs: 04/13/17 05:20 04/12/17 14:27 - Constitutional Appears: No Acute Distress - Head Exam Head Exam: ATRAUMATIC, NORMAL INSPECTION, NORMOCEPHALIC - Eye Exam Eye Exam: EOMI, Normal appearance, PERRL Pupil Exam: NORMAL ACCOMODATION, PERRL - ENT Exam ENT Exam: Mucous Membranes Moist, Normal Exam - Neck Exam Neck Exam: Full ROM, Normal Inspection. absent: Lymphadenopathy - Respiratory Exam Respiratory Exam: Prolonged Expiratory Phase, Wheezes, NORMAL BREATHING PATTERN - Cardiovascular Exam Cardiovascular Exam: REGULAR RHYTHM, +S1, +S2. absent: Murmur - GI/Abdominal Exam GI & Abdominal Exam: Soft, Normal Bowel Sounds. absent: Tenderness - Rectal Exam Rectal Exam: NORMAL INSPECTION - Extremities Exam Extremities Exam: Full ROM, Normal Capillary Refill, Normal Inspection. absent : Joint Swelling, Pedal Edema - Back Exam Back Exam: NORMAL INSPECTION - Neurological Exam Neurological Exam: Alert, Awake, CN II-XII Intact, Normal Gait, Oriented x3 - Psychiatric Exam Psychiatric exam: Normal Affect, Normal Mood - Skin Skin Exam: Dry, Intact, Normal Color, Warm Assessment and Plan - Assessment and Plan (Free Text) Assessment: ASTHMA-IMPROVED CHEST PAINS RESOLVED HIV DZ Plan: OK TO D/C FROM THE PULMONARY VIEW POINT REFER TO OFFICE FOR FOLLOW UP WILL SIGN OFF CASE AND SEE AGAIN AT YOUR REQUEST
[2017-04-15 12:22] VITALS: BP 123/75; PULSE 87; TEMP 98.4; O2SAT 99
--- NOTE | 2017-04-15 12:39 | CP.PCM.DIS ---
Provider - Provider Date of Admission: 04/13/17 14:26 Attending physician: Kit Rhodes MD Time Spent in preparation of Discharge (in minutes): 30 Hospital Course - Lab Results Lab Results: Most Recent Lab Values WBC 8.5 K/uL (4.8-10.8) D 04/13/17 05:20 RBC 4.09 Mil/uL (3.80-5.20) 04/13/17 05:20 Hgb 12.1 g/dL (12.0-16.0) 04/13/17 05:20 Hct 36.1 % (34.0-47.0) 04/13/17 05:20 MCV 88.2 fl (81.0-99.0) 04/13/17 05:20 MCH 29.6 pg (27.0-31.0) 04/13/17 05:20 MCHC 33.6 g/dL (33.0-37.0) 04/13/17 05:20 RDW 13.1 % (11.5-14.5) 04/13/17 05:20 Plt Count 343 K/uL (130-400) 04/13/17 05:20 MPV 7.0 fl (7.2-11.7) L 04/13/17 05:20 Neut % (Auto) 88.3 % (50.0-75.0) H 04/13/17 05:20 Lymph % (Auto) 10.2 % (20.0-40.0) L 04/13/17 05:20 Ray % (Auto) 1.1 % (0.0-10.0) 04/13/17 05:20 Eos % (Auto) 0.0 % (0.0-4.0) 04/13/17 05:20 Baso % (Auto) 0.4 % (0.0-2.0) 04/13/17 05:20 Neut # 7.5 K/uL (1.8-7.0) H 04/13/17 05:20 Lymph # 0.9 K/uL (1.0-4.3) L 04/13/17 05:20 Ray # 0.1 K/uL (0.0-0.8) 04/13/17 05:20 Eos # 0.0 K/uL (0.0-0.7) 04/13/17 05:20 Baso # 0.0 K/uL (0.0-0.2) 04/13/17 05:20 pCO2 40 mm/Hg (35-45) 04/12/17 15:30 pO2 66 mm/Hg (80-100) L 04/12/17 15:30 HCO3 25.4 mmol/L (21-28) 04/12/17 15:30 ABG pH 7.41 (7.35-7.45) 04/12/17 15:30 ABG Total CO2 26.6 mmol/L (22-28) 04/12/17 15:30 ABG O2 Saturation 97.5 % (95-98) 04/12/17 15:30 ABG Base Excess 0.7 mmol/L (-2.0-3.0) 04/12/17 15:30 Darryl Test Yes 04/12/17 15:30 ABG Potassium 3.1 mmol/L (3.6-5.2) L 04/12/17 15:30 A-a O2 Difference 34.0 mm/Hg 04/12/17 15:30 Sodium 138.0 mmol/L (132-148) 04/12/17 15:30 Chloride 107.0 mmol/L (98-107) 04/12/17 15:30 Glucose 130 mg/dL (65-105) H 04/12/17 15:30 Lactate 2.0 mmol/L (0.7-2.1) 04/12/17 15:30 FiO2 21.0 % 04/12/17 15:30 Sodium 141 mmol/l (132-148) 04/12/17 14:27 Potassium 4.3 MMOL/L (3.6-5.0) 04/12/17 14:27 Chloride 105 mmol/L (98-107) 04/12/17 14:27 Carbon Dioxide 28 mmol/L (22-30) 04/12/17 14:27 Anion Gap 12 (10-20) 04/12/17 14:27 BUN 13 mg/dl (7-17) 04/12/17 14:27 Creatinine 1.1 mg/dl (0.7-1.2) 04/12/17 14:27 Est GFR ( Amer) > 60 04/12/17 14:27 Est GFR (Non-Af Amer) 52 12/01/17 14:27 Random Glucose 86 mg/dL (65-105) 04/12/17 14:27 Calcium 9.1 mg/dL (8.4-10.2) 04/12/17 14:27 Total Bilirubin 0.7 mg/dl (0.2-1.3) 04/12/17 14:27 AST 26 U/L (14-36) 04/12/17 14:27 ALT 25 U/L (9-52) 04/12/17 14:27 Alkaline Phosphatase 94 U/L (38-126) 04/12/17 14:27 Troponin I < 0.0120 ng/mL (0.00-0.120) 04/12/17 19:57 Total Protein 8.8 G/DL (6.3-8.2) H 04/12/17 14:27 Albumin 4.2 g/dL (3.5-5.0) 04/12/17 14:27 Globulin 4.5 gm/dL (2.2-3.9) H 04/12/17 14:27 Albumin/Globulin Ratio 0.9 (1.0-2.1) L 04/12/17 14:27 TSH 3rd Generation 0.19 mIU/ML (0.46-4.68) L 04/13/17 05:20 Arterial Blood Potassium 3.1 mmol/L (3.6-5.2) L 04/12/17 15:30 - Hospital Course Hospital Course: Admission Date: 04/12/17 Discharge Diagnosis: Asthma Exacerbation, Acute Hospital Course: 56 y/o female with hx of Asthma, AIDS admitted to hospital for management of acute asthma exacerbation. Pt was treated with Duonebs, Advair, Singulair, Levofloxacin, and Prednisone 40mg. Pt was evaluated by [employer] Dr. Howell and will f/u OP. Pt respiratory status was baseline on discharge. Pt was advised to continue using home O2. Discharge Medications: Levofloxacin 500mg daily for 5 days Prednisone 20mg daily for 2 weeks Discharge Plan: Condition: Fair Activity: Ambulating F/u: Will follow up with [employer], Dr. Yee, in 2 weeks. Discharge Exam - Head Exam Head Exam: ATRAUMATIC, NORMAL INSPECTION, NORMOCEPHALIC - ENT Exam ENT Exam: Mucous Membranes Moist - Respiratory Exam Respiratory Exam: absent: Accessory Muscle Use, Rales, Wheezes, Respiratory Distress, Stridor, NORMAL BREATHING PATTERN - Cardiovascular Exam Cardiovascular Exam: REGULAR RHYTHM, +S1, +S2. absent: JVD, Systolic Murmur - GI/Abdominal Exam GI & Abdominal Exam: Normal Bowel Sounds, Soft. absent: Tenderness - Neurological Exam Neurological exam: Alert, Oriented x3 - Psychiatric Exam Psychiatric exam: Normal Affect Discharge Plan - Discharge Medications Prescriptions: predniSONE [predniSONE Tab] 20 mg PO DAILY 14 Days #14 tab - Follow Up Plan Condition: FAIR Disposition: HOME/ ROUTINE Instructions: Asthma (DC), Using Oxygen at Home (DC)
== END 2017-04-15 16:00 | disposition home or self-care (01) | DRG 202 ==
LOC: H.ER 13:34 → H.ERHOLD 17:56 → H.TEL 21:08 → OBSVTOIN 04-13 14:26
PROVIDERS: ADMIT Family Medicine; ATTEND Family Medicine
DX: J45.901 Unspecified asthma with (acute) exacerbation (principal); B20 Human immunodeficiency virus [HIV] disease; R09.02 Hypoxemia; J44.9 Chronic obstructive pulmonary disease, unspecified; G50.0 Trigeminal neuralgia; E04.1 Nontoxic single thyroid nodule; R91.8 Other nonspecific abnormal finding of lung field

== ENCOUNTER 2017-10-23 12:33 | Emergency (ER) | payer MEDICARE, OTHER ==
[2017-10-23 12:34] VITALS: BMI 30.1
[2017-10-23 12:42] VITALS: O2SAT 100
[2017-10-23 14:03] LABS: BASO % 0.9 % (0.0-2.0); EOS # 0.3 K/uL (0.0-0.7); EOS % 7.1 % (0.0-4.0); HEMOGLOBIN 10.9 g/dL (12.0-16.0); LYMPH # 1.3 K/uL (1.0-4.3); LYMPH % 30.5 % (20.0-40.0); MEAN CELL VOLUME 88.6 fl (81.0-99.0); MEAN CORPUSCULAR HEMOGLOBIN 29.5 pg (27.0-31.0); MEAN CORPUSCULAR HGB CONC 33.3 g/dL (33.0-37.0); MEAN PLATELET VOLUME 6.6 fl (7.2-11.7); MONO # 0.7 K/uL (0.0-0.8); MONO % 17.5 % (0.0-10.0); NEUT # 1.8 K/uL (1.8-7.0); NRBC % 0.1 % (0.0-0.0); RBC 3.71 Mil/uL (3.80-5.20); RED CELL DISTRIBUTION WIDTH 14.5 % (11.5-14.5); WHITE BLOOD COUNT 4.2 K/uL (4.8-10.8)
--- NOTE | 2017-10-23 14:08 | ED PDOC ---
Lower Extremity Pain/Injury Time Seen by Provider: 10/23/17 13:21 Chief Complaint (Nursing): Lower Extremity Problem/Injury Chief Complaint (Provider): Lower Extremity Problem History Per: Patient History/Exam Limitations: no limitations Onset/Duration Of Symptoms: Other (2 weeks) Current Symptoms Are (Timing): Still Present Additional Complaint(s): 57 year old female with asthma presents to the ED complaining of swelling on right ankle onset for 2 weeks. Patient went to her PMD who advised her to keep her right foot elevated. However, she feels pain. She denies any fall, recent travel, sick contacts, shortness of breath, or taking any blood thinners. PMD: Dr. Yee and Dr. Boyer Past Medical History Reviewed: Historical Data, Nursing Documentation, Vital Signs Vital Signs: Last Vital Signs Temp 97.1 F L 10/23/17 12:41 Pulse 86 10/23/17 12:41 Resp 14 10/23/17 12:41 BP 129/82 10/23/17 12:41 Pulse Ox 100 10/23/17 12:41 - Medical History PMH: Anemia, Asthma, Bronchitis, COPD, HIV, Pneumonia Denies: Arthritis, CHF, HTN, Hypercholesterolemia, Hypothyroidism, Chronic Kidney Disease, Rheumatoid Arthritis - Surgical History Surgical History: Cholecystectomy - Family History Family History: States: Unknown Family Hx - Home Medications Home Medications: Ambulatory Orders Medication Instructions Recorded Albuterol 0.083% [Albuterol 0.083% 3 ml IH Q8H PRN 05/23/16 Inhal Lily (2.5 mg/3 ml) UD] Albuterol HFA [Ventolin HFA 90 2 puff IH Q4H PRN 05/23/16 mcg/actuation (8 g)] Dolutegravir Sodium [Tivicay] 50 mg PO DAILY 05/23/16 Emtricitabine/Tenofovir (Tdf) 1 tab PO DAILY 05/23/16 [Truvada 200 mg-300 mg Tablet] Ferrous Sulfate [Feosol] 325 mg PO DAILY 05/23/16 Montelukast [Singulair] 10 mg PO HS 05/23/16 Cholecalciferol [Vitamin D 1000 IU] 1,000 unit PO DAILY 10/26/16 Docusate [Colace] 100 mg PO HS 10/26/16 Fluticasone/Vilanterol [Breo 1 puff IH DAILY 10/26/16 Ellipta 100-25 Mcg INH] Oxcarbazepine [Trileptal] 150 mg PO BID 10/26/16 Roflumilast [Daliresp] 500 mcg PO DAILY 10/26/16 Promethazine/Codeine 10 ml PO Q6 PRN #1 udc 10/31/16 [Phenergan/Codeine Oral Syrup] Montelukast [Singulair] 10 mg PO HS tab 04/15/17 Sulfamethoxazole/Trimethoprim 1 tab PO HS tab 04/15/17 [Bactrim DS Tab] predniSONE [predniSONE Tab] 20 mg PO DAILY 14 Days #14 tab 04/15/17 - Allergies Allergies/Adverse Reactions: Allergies Allergy/AdvReac Type Severity Reaction Status Date / Time procaine HCl [From Novocain] Allergy RASH Verified 10/26/16 12:11 shrimp Allergy RASH Verified 10/26/16 12:11 Review of Systems ROS Statement: Except As Marked, All Systems Reviewed And Found Negative Constitutional: Negative for: Fever Respiratory: Negative for: Shortness of Breath Musculoskeletal: Positive for: Foot Pain (right) Physical Exam - Reviewed Nursing Documentation Reviewed: Yes Vital Signs Reviewed: Yes - Physical Exam Appears: Positive for: Non-toxic, No Acute Distress Head Exam: Positive for: ATRAUMATIC, NORMAL INSPECTION, NORMOCEPHALIC Skin: Positive for: Normal Color, Warm, Dry Cardiovascular/Chest: Positive for: Regular Rate, Rhythm. Negative for: Murmur Respiratory: Positive for: Normal Breath Sounds. Negative for: Decreased Breath Sounds, Accessory Muscle Use, Respiratory Distress Extremity: Positive for: Tenderness (from right knee to ankle), Swelling (right lower extremity), Other (positive julio's sign, warm, no erythema ) Neurologic/Psych: Positive for: Alert, Oriented (x3) - Laboratory Results Result Diagrams: 10/23/17 13:50 10/23/17 13:50 - ECG O2 Sat by Pulse Oximetry: 100 (RA) Pulse Ox Interpretation: Normal Medical Decision Making Medical Decision Making: Time: 605 Initial impression: r/o DVT Initial plan: --EKG --B-Type Natriuretic Peptide --CMP --Troponin I --CBC w/ Differential --PTT --Prothrombin Time --Chest Portable [RAD] --Duplex Lower Extremities Vein Right [US] Time: 1453 PROCEDURE: Right lower extremity venous duplex Doppler. HISTORY: r/o dvt COMPARISON: None available. TECHNIQUE: Common femoral, superficial femoral, popliteal and posterior tibial veins were evaluated. Flow was assessed with color Doppler, compressibility, assessment of phasic flow and augmentation response. FINDINGS: COMMON FEMORAL VEIN: Unremarkable. SUPERFICIAL FEMORAL VEIN: Unremarkable. POPLITEAL VEIN: Unremarkable. POSTERIOR TIBIAL VEIN: Unremarkable. OTHER FINDINGS: None. IMPRESSION: No evidence of deep venous thrombosis in the right lower extremity. Time: 145 HISTORY: r/o cardio COMPARISON: 04/12/2017 FINDINGS: LUNGS: No active pulmonary disease. PLEURA: No significant pleural effusion identified, no pneumothorax apparent. CARDIOVASCULAR: Normal. OSSEOUS STRUCTURES: No significant abnormalities. VISUALIZED UPPER ABDOMEN: Normal. OTHER FINDINGS: None. IMPRESSION: No active disease. Consulted with patient concerning the exclusion of negatives; referred to PMD for further evaluation Scribe Attestation: Documented by Kadi Lara, acting as a scribe for Johnnie Vallejo PA-C. Provider Scribe Attestation: All medical record entries made by the Scribe were at my direction and personally dictated by me. I have reviewed the chart and agree that the record accurately reflects my personal performance of the history, physical exam, medical decision making, and the department course for this patient. I have also personally directed, reviewed, and agree with the discharge instructions and disposition. Disposition - Clinical Impression Clinical Impression: Edema - Patient ED Disposition Is Patient to be Admitted: No Doctor Will See Patient In The: Office Counseled Patient/Family Regarding: Studies Performed, Diagnosis, Need For Followup - Disposition Referrals: Kira Boyer MD [Family Provider] - [facility] [Outside] Disposition: Routine/Home Disposition Time: 15:24 Condition: STABLE Instructions: Dependent Edema (DC) Forms: [employer] (Italian)
[2017-10-23 14:13] LABS: PARTIAL THROMBOPLASTIN TIME 53.4 Seconds (25.6-37.1); PROTHROMBIN TIME 11.1 Seconds (9.8-13.1)
[2017-10-23 14:17] LABS: ALT/SGPT 8 U/L (9-52); AST/SGOT 30 U/L (14-36); BLOOD UREA NITROGEN 12 mg/dl (7-17); CALCIUM 8.9 mg/dL (8.4-10.2); GFR AFRICAN-AMERICAN > 60; GFR NON-AFRICAN AMERICAN > 60
[2017-10-23 14:34] LABS: B-TYPE NATRIURETIC PEPTIDE 131 pg/ml (0-900)
--- NOTE | 2017-10-23 14:56 | US ---
PROCEDURE: Right lower extremity venous duplex Doppler. HISTORY: r/o dvt COMPARISON: None available. TECHNIQUE: Common femoral, superficial femoral, popliteal and posterior tibial veins were evaluated. Flow was assessed with color Doppler, compressibility, assessment of phasic flow and augmentation response. FINDINGS: COMMON FEMORAL VEIN: Unremarkable. SUPERFICIAL FEMORAL VEIN: Unremarkable. POPLITEAL VEIN: Unremarkable. POSTERIOR TIBIAL VEIN: Unremarkable. OTHER FINDINGS: None. IMPRESSION: No evidence of deep venous thrombosis in the right lower extremity.
--- NOTE | 2017-10-23 14:57 | RAD ---
HISTORY: r/o cardio COMPARISON: 04/12/2017 FINDINGS: LUNGS: No active pulmonary disease. PLEURA: No significant pleural effusion identified, no pneumothorax apparent. CARDIOVASCULAR: Normal. OSSEOUS STRUCTURES: No significant abnormalities. VISUALIZED UPPER ABDOMEN: Normal. OTHER FINDINGS: None. IMPRESSION: No active disease.
[2017-10-23 17:00] VITALS: BP 128/76; PULSE 72; RESP 16; TEMP 98
--- NOTE | 2017-10-25 11:13 | CARD ---
APPROVED REPORT EKG Measurement Heart [id number] VT [id number] <Conclusion> Normal sinus rhythm Normal ECG
== END 2017-10-23 16:59 | disposition home or self-care (01) ==
LOC: H.ER 12:33
DX: R60.0 Localized edema (principal); J44.9 Chronic obstructive pulmonary disease, unspecified

== ENCOUNTER 2018-03-22 09:16 | Inpatient (IN) | payer MEDICARE, OTHER ==
[2018-03-22 09:16] VITALS: BMI 32.9
[2018-03-22] MEDS ORDERED: Albuterol-Ipratrop 3 mg / 0.5 (3 ml) UD IH STA ×3 (09:39→09:40)
--- NOTE | 2018-03-22 09:44 | ED PDOC ---
HPI: SOB/CHF/COPD Time Seen by Provider: 03/22/18 09:34 Chief Complaint (Nursing): Shortness Of Breath Chief Complaint (Provider): SOB and wheezing History Per: Patient History/Exam Limitations: no limitations Onset/Duration Of Symptoms: Days (x2) Current Symptoms Are (Timing): Still Present Associated Symptoms: denies: Fever, Chills Additional Complaint(s): Anayeli Luciano is a 57 year old female, with a past medical history of asthma, who presents to the emergency department complaining of shortness of breath, wheezing and nonproductive cough onset for x2 days. Patient denies any fever or chills. No further medical complaints. PMD: Alen Yee I Past Medical History Reviewed: Historical Data, Nursing Documentation, Vital Signs Vital Signs: Last Vital Signs Temp 98.4 F 03/22/18 09:23 Pulse 99 H 03/22/18 09:23 Resp 20 03/22/18 09:34 BP 124/79 03/22/18 09:23 Pulse Ox 99 03/22/18 09:34 - Medical History PMH: Anemia, Asthma, Bronchitis, COPD, HIV, Pneumonia Denies: Arthritis, CHF, HTN, Hypercholesterolemia, Hypothyroidism, Chronic Kidney Disease, Rheumatoid Arthritis - Surgical History Surgical History: Cholecystectomy - Family History Family History: States: Unknown Family Hx - Social History Current smoker - smoking cessation education provided: No Alcohol: None Drugs: Denies - Home Medications Home Medications: Ambulatory Orders Medication Instructions Recorded Albuterol 0.083% [Albuterol 0.083% 3 ml IH Q8H PRN 05/23/16 Inhal Lily (2.5 mg/3 ml) UD] Albuterol HFA [Ventolin HFA 90 2 puff IH Q4H PRN 05/23/16 mcg/actuation (8 g)] Dolutegravir Sodium [Tivicay] 50 mg PO DAILY 05/23/16 Emtricitabine/Tenofovir (Tdf) 1 tab PO DAILY 05/23/16 [Truvada 200 mg-300 mg Tablet] Ferrous Sulfate [Feosol] 325 mg PO DAILY 05/23/16 Montelukast [Singulair] 10 mg PO HS 05/23/16 Cholecalciferol [Vitamin D 1000 IU] 1,000 unit PO DAILY 10/26/16 Docusate [Colace] 100 mg PO HS 10/26/16 Fluticasone/Vilanterol [Breo 1 puff IH DAILY 10/26/16 Ellipta 100-25 Mcg INH] Oxcarbazepine [Trileptal] 150 mg PO BID 10/26/16 Roflumilast [Daliresp] 500 mcg PO DAILY 10/26/16 Promethazine/Codeine 10 ml PO Q6 PRN #1 udc 10/31/16 [Phenergan/Codeine Oral Syrup] Montelukast [Singulair] 10 mg PO HS tab 04/15/17 Sulfamethoxazole/Trimethoprim 1 tab PO HS tab 04/15/17 [Bactrim DS Tab] predniSONE [predniSONE Tab] 20 mg PO DAILY 14 Days #14 tab 04/15/17 - Allergies Allergies/Adverse Reactions: Allergies Allergy/AdvReac Type Severity Reaction Status Date / Time procaine HCl [From Novocain] Allergy RASH Verified 03/22/18 09:29 shrimp Allergy RASH Verified 03/22/18 09:29 Review of Systems ROS Statement: Except As Marked, All Systems Reviewed And Found Negative Constitutional: Negative for: Fever, Chills Respiratory: Positive for: Cough (nonproductive), Shortness of Breath, Wheezing Physical Exam - Reviewed Nursing Documentation Reviewed: Yes Vital Signs Reviewed: Yes - Physical Exam Appears: Positive for: No Acute Distress Head Exam: Positive for: ATRAUMATIC, NORMAL INSPECTION, NORMOCEPHALIC Skin: Positive for: Normal Color, Warm, Dry Eye Exam: Positive for: Normal appearance, EOMI, PERRL ENT: Positive for: Normal ENT Inspection Neck: Positive for: Normal, Painless ROM Cardiovascular/Chest: Positive for: Regular Rate, Rhythm. Negative for: Murmur Respiratory: Positive for: Rhonchi (bilaterally), Wheezing, Respiratory Distress (mild) Gastrointestinal/Abdominal: Positive for: Normal Exam, Soft. Negative for: Tenderness Back: Positive for: Normal Inspection. Negative for: L CVA Tenderness, R CVA Tenderness, Vertebral Tenderness Extremity: Positive for: Normal ROM (upper and lower extremities). Negative for: Deformity, Swelling Neurologic/Psych: Positive for: Alert, Oriented. Negative for: Motor/Sensory Deficits - Laboratory Results Result Diagrams: 03/22/18 10:00 03/22/18 10:00 - ECG O2 Sat by Pulse Oximetry: 99 (RA) Pulse Ox Interpretation: Normal - Progress Re-evaluation Time: 11:41 Condition: Improved (Improved but still wheezing) Medical Decision Making Medical Decision Making: Time: 09:34 Initial Plan: --CMP --CBC w/ differential --Chest two views (PA/LAT) [RAD] --Duoneb 3 ml INH --Duoneb 3 ml INH --Duoneb 3 ml INH --Solu-medrol 125 mg IVP --Reevaluation Scribe Attestation: Documented by Rohith Burleson, acting as a scribe for Darshan Noriega MD. Provider Scribe Attestation: All medical record entries made by the Scribe were at my direction and personally dictated by me. I have reviewed the chart and agree that the record accurately reflects my personal performance of the history, physical exam, medical decision making, and the department course for this patient. I have also personally directed, reviewed, and agree with the discharge instructions and disposition. Disposition - Clinical Impression Clinical Impression: Asthma exacerbation - Patient ED Disposition Is Patient to be Admitted: Yes - Disposition Disposition Time: 11:42 Condition: FAIR Forms: [facility] (Kenyan) - Pt Status Changed To: Hospital Disposition Of: Observation - POA Present On Arrival: None
[2018-03-22 10:16] LABS: BASO # 0.1 K/uL (0.0-0.2); BASO % 0.7 % (0.0-2.0); EOS # 0.4 K/uL (0.0-0.7); EOS % 2.9 % (0.0-4.0); HEMOGLOBIN 12.2 g/dL (12.0-16.0); LYMPH # 2.9 K/uL (1.0-4.3); LYMPH % 23.6 % (20.0-40.0); MEAN CELL VOLUME 89.4 fl (81.0-99.0); MEAN CORPUSCULAR HGB CONC 32.4 g/dL (33.0-37.0); MEAN PLATELET VOLUME 7.2 fl (7.2-11.7); MONO # 1.5 K/uL (0.0-0.8); MONO % 12.5 % (0.0-10.0); NEUT # 7.5 K/uL (1.8-7.0); NEUT % 60.3 % (50.0-75.0); NRBC % 0.2 % (0.0-0.0); RBC 4.22 Mil/uL (3.80-5.20); RED CELL DISTRIBUTION WIDTH 13.9 % (11.5-14.5); WHITE BLOOD COUNT 12.4 K/uL (4.8-10.8)
[2018-03-22 10:36] LABS: ALB/GLOB RATIO 0.8 (1.0-2.1); ALBUMIN 4.5 g/dL (3.5-5.0); CALCIUM 9.5 mg/dL (8.4-10.2)
--- NOTE | 2018-03-22 10:37 | RAD ---
Date of service: 03/22/2018 HISTORY: cough COMPARISON: 04/12/2017 and 10/23/2017 TECHNIQUE: Chest PA and lateral FINDINGS: LUNGS: No active pulmonary disease. PLEURA: No significant pleural effusion identified. No pneumothorax apparent. CARDIOVASCULAR: No aortic atherosclerotic calcification present. Normal cardiac size. No pulmonary vascular congestion. OSSEOUS STRUCTURES: No significant abnormalities. VISUALIZED UPPER ABDOMEN: Normal. OTHER FINDINGS: None. IMPRESSION: No active disease.
[2018-03-22] MEDS ORDERED: Magnesium Sulfate 2 gm/50 ml 2 GM/50 ML BAG IVPB ONE (11:43)
[2018-03-22] MEDS ORDERED: Magnesium Sulfate 2 gm/50 ml 2 GM/50 ML BAG ONE (12:09)
[2018-03-22] MEDS ORDERED: Emtricitabine-Tenofovir 200 mg-300 mg Tab PO SCH (12:45)
--- NOTE | 2018-03-22 13:10 | CP.PCM.HP ---
<Andrea Weinstein - Last Filed: 03/22/18 13:35> History of Present Illness - History of Present Illness History of Present Illness: 57 yo F with pmhx of Asthma, HIV/AIDS, trigeminal neuralgia, Dyslipidemia, anemia presents to the ED for 3 day history of progressive SOB. Pt reports symptoms began with dry cough and fever of 102 F. She took tylenol, which alleviated the fevers. However, her cough persisted and she started to experience SOB. Pt used her rescue inhaler but did not significantly alleviate her symptoms. She denies recent travel, sick contacts Peak flow ~200 Allergy test was 3 years ago JAZ testing ~6 months ago. Planned for f/u testing soon. Last hospitalization was 1 year ago. She reports annual admission around [facility]. She denies current CP/N/V. Of note: last meal was approximately 3 days prior due to gas and vomiting after eating. Last bowel movement today soft. PMD: Dr. Boyer, [facility] Pulm: Dr. Yee; last visit 2 months ago. Pmhx: Asthma diagnosed in childhood. Persistent; HIV Famhx: DM, Asthma, COPD, Breast cancer Surg: , cholecystectomy, L aidan oophrectomy, PID Soc: Denies smoking, alcohol, illicit drugs Allergies: Lidocaine Present on Admission - Present on Admission Any Indicators Present on Admission: No History of Uncontrolled Diabetes: No Urinary Catheter: No Review of Systems - Constitutional Constitutional: As Per HPI - Cardiovascular Cardiovascular: absent: Chest Pain - Respiratory Respiratory: Cough, Dyspnea - Gastrointestinal Gastrointestinal: Bloating. absent: Abdominal Pain - Neurological Neurological: absent: Abnormal Gait Past Patient History - Infectious Disease Hx of Infectious Diseases: None - Past Medical History & Family History Past Medical History?: Yes Pertinent Family History: Asthma, diabetes, COPD, - Past Social History Smoking Status: Unknown If Ever Smoked Alcohol: None Drugs: Denies Home Situation {Lives}: With Family - CARDIAC Hx Cardiac Disorders: No Hx Congestive Heart Failure: No Hx Hypercholesterolemia: No Hx Hypertension: No - PULMONARY Hx Asthma: Yes Hx Bronchitis: Yes Hx Chronic Obstructive Pulmonary Disease (COPD): Yes Hx Pneumonia: Yes - NEUROLOGICAL Hx Neurological Disorder: Yes (trigeminal neuralgia) - HEENT Hx HEENT Problems: No - RENAL Hx Chronic Kidney Disease: No - ENDOCRINE/METABOLIC Hx Hypothyroidism: No - HEMATOLOGICAL/ONCOLOGICAL Hx Anemia: Yes Hx Human Immunodeficiency Virus (HIV): Yes - INTEGUMENTARY Hx Dermatological Problems: Yes Hx Eczema: Yes Other/Comment: SKIN DISCOLORATION BOTH ARM - MUSCULOSKELETAL/RHEUMATOLOGICAL Hx Arthritis: No Hx Rheumatoid Arthritis: No - GASTROINTESTINAL Hx Gastrointestinal Disorders: No - GENITOURINARY/GYNECOLOGICAL Hx Genitourinary Disorders: No - PSYCHIATRIC Hx Psychophysiologic Disorder: No Hx Substance Use: No - SURGICAL HISTORY Hx Cholecystectomy: Yes - ANESTHESIA Hx Anesthesia: Yes Hx Anesthesia Reactions: No Hx Malignant Hyperthermia: No Meds Allergies/Adverse Reactions: Allergies Allergy/AdvReac Type Severity Reaction Status Date / Time procaine HCl [From Novocain] Allergy RASH Verified 03/22/18 09:29 shrimp Allergy RASH Verified 03/22/18 09:29 Physical Exam - Eye Exam Eye Exam: EOMI - ENT Exam ENT Exam: Mucous Membranes Moist - Respiratory Exam Respiratory Exam: Accessory Muscle Use, Rhonchi, Wheezes - Cardiovascular Exam Cardiovascular Exam: REGULAR RHYTHM, +S1, +S2 - GI/Abdominal Exam GI & Abdominal Exam: Soft. absent: Tenderness - Neurological Exam Neurological exam: Alert, CN II-XII Intact, Oriented x3 - Psychiatric Exam Psychiatric exam: Normal Affect, Normal Mood - Skin Skin Exam: Dry, Warm Results - Vital Signs Recent Vital Signs: Last Vital Signs Temp 98.4 F 03/22/18 09:23 Pulse 86 03/22/18 12:15 Resp 18 03/22/18 12:15 BP 127/73 03/22/18 12:15 Pulse Ox 98 03/22/18 12:15 - Labs Result Diagrams: 03/22/18 10:00 03/22/18 10:00 Labs: Laboratory Results - last 24 hr 03/22/18 03/22/18 10:00 10:00 WBC 12.4 H D RBC 4.22 Hgb 12.2 Hct 37.7 MCV 89.4 MCH 29.0 MCHC 32.4 L RDW 13.9 Plt Count 423 H MPV 7.2 Neut % (Auto) 60.3 Lymph % (Auto) 23.6 Harney % (Auto) 12.5 H Eos % (Auto) 2.9 Baso % (Auto) 0.7 Neut # (Auto) 7.5 H Lymph # (Auto) 2.9 Harney # (Auto) 1.5 H Eos # (Auto) 0.4 Baso # (Auto) 0.1 Sodium 140 Potassium 3.8 Chloride 99 Carbon Dioxide 26 Anion Gap 19 BUN 22 H Creatinine 1.4 H Est GFR ( Amer) 47 Est GFR (Non-Af Amer) 39 Random Glucose 130 H Calcium 9.5 Total Bilirubin 1.0 AST 43 H ALT 16 Alkaline Phosphatase 123 Total Protein 9.9 H Albumin 4.5 Globulin 5.4 H Albumin/Globulin Ratio 0.8 L Assessment & Plan - Assessment and Plan (Free Text) Assessment: 57 yo F with pmhx of Asthma, HIV/AIDS, trigeminal neuralgia, Dyslipidemia, anemia presents to the ED for 3 day history of progressive SOB; admitted for asthma exacerbation. Plan: Asthma -CXR: no active disease -s/p Duoneb x 3 in ER with methylprednisolone 125 mg ivp, Mg sulfate -Pulm: Dr. Yee on board -Duoneb: RQ4 PRN -Home med: Fluticasone/Vilanterol -Montelukast 10 mg qp qhs Dehydration -BUN/CR: 22/1.4 -IVF: ns maintenance HIV -CD4: 347 01/22/2018 -%CD4: 16 -Continue home meds: Dolutegravir, Emtricitabine/Tenofovir -Bactrim DS 1 tab po HS Trigeminal Neuralgia -Oxcarbazepine 150 mg PO BID DVT/GI prophylaxis -Lovenox 40 mg SC q D -Pantoprazole 40 mg qD Code status: -Full code Vaccines: -Pneumovax 23 on 08/05/2003 -Flu: 02/20/[address] Johan Weinstein MD PGY2 <Lokesh Prado D - Last Filed: 03/22/18 16:19> Results - Vital Signs Recent Vital Signs: Last Vital Signs Temp 98.5 F 03/22/18 16:04 Pulse 75 03/22/18 16:04 Resp 17 03/22/18 16:04 BP 127/78 03/22/18 16:04 Pulse Ox 98 03/22/18 16:04 - Labs Result Diagrams: 03/22/18 10:00 03/22/18 10:00 Labs: Laboratory Results - last 24 hr 03/22/18 03/22/18 10:00 10:00 WBC 12.4 H D RBC 4.22 Hgb 12.2 Hct 37.7 MCV 89.4 MCH 29.0 MCHC 32.4 L RDW 13.9 Plt Count 423 H MPV 7.2 Neut % (Auto) 60.3 Lymph % (Auto) 23.6 Harney % (Auto) 12.5 H Eos % (Auto) 2.9 Baso % (Auto) 0.7 Neut # (Auto) 7.5 H Lymph # (Auto) 2.9 Harney # (Auto) 1.5 H Eos # (Auto) 0.4 Baso # (Auto) 0.1 Sodium 140 Potassium 3.8 Chloride 99 Carbon Dioxide 26 Anion Gap 19 BUN 22 H Creatinine 1.4 H Est GFR ( Amer) 47 Est GFR (Non-Af Amer) 39 Random Glucose 130 H Calcium 9.5 Total Bilirubin 1.0 AST 43 H ALT 16 Alkaline Phosphatase 123 Total Protein 9.9 H Albumin 4.5 Globulin 5.4 H Albumin/Globulin Ratio 0.8 L Attending/Attestation - Attestation I have personally seen and examined this patient.: Yes I have fully participated in the care of the patient.: Yes I have reviewed all pertinent clinical information: Yes Notes (Text): 03/22/18 16:18 Patient seen and examined with resident. Case discussed and agreed with assessment and plan of management.
[2018-03-22] MEDS: Albuterol-Ipratrop 3 mg / 0.5 (3 ml) UD INH PRN (16:02)
[2018-03-22] MEDS ORDERED: methylPREDNISolone 60 MG in Sodium Chloride 0.9% 50 ML IVPB SCH (17:00)
[2018-03-22] MEDS: Tmp-Smz 800 mg-160 mg DS Tab PO SCH (22:17)
[2018-03-22] MEDS: Sodium Chloride 0.9% 1,000 ML IV SCH ×2 (22:21→22:54)
[2018-03-22] MEDS ORDERED: DARUNAVIR 800 MG PO SCH (22:30)
[2018-03-22] MEDS: RILPIVIRINE HCL 25 MG PO SCH (23:59)
[2018-03-23 07:14] LABS: BLOOD UREA NITROGEN 20 mg/dl (7-17); GFR NON-AFRICAN AMERICAN > 60
[2018-03-23] MEDS: Albuterol-Ipratrop 3 mg / 0.5 (3 ml) UD INH PRN (07:40)
[2018-03-23 07:49] LABS: BASO % 0.1 % (0.0-2.0); LYMPH # 1.2 K/uL (1.0-4.3); LYMPH % 9.9 % (20.0-40.0); MEAN CELL VOLUME 89.5 fl (81.0-99.0); MEAN CORPUSCULAR HEMOGLOBIN 28.9 pg (27.0-31.0); MEAN CORPUSCULAR HGB CONC 32.3 g/dL (33.0-37.0); MEAN PLATELET VOLUME 7.3 fl (7.2-11.7); MONO # 0.4 K/uL (0.0-0.8); MONO % 3.3 % (0.0-10.0); NEUT # 10.4 K/uL (1.8-7.0); NEUT % 86.7 % (50.0-75.0); PLATELET COUNT 385 K/uL (130-400); RBC 3.82 Mil/uL (3.80-5.20); RED CELL DISTRIBUTION WIDTH 13.8 % (11.5-14.5)
[2018-03-23] MEDS ORDERED: Patient's Own Med (Fluticasone/Vilanterol [Breo Ellipta 100-25 Mcg Inh] 1 PUFF) IH SCH (09:00)
[2018-03-23] MEDS: Fluticasone-Salmeterol 100-50mcg Diskus IH SCH ×2 (10:10→21:30)
[2018-03-23] MEDS: Enoxaparin 40 mg Syringe SC SCH (10:11)
[2018-03-23] MEDS: Pantoprazole 40 mg EC Tab PO SCH (10:11)
[2018-03-23] MEDS: Cholecalciferol 1,000 INTLU TAB PO SCH (10:13)
[2018-03-23] MEDS: Sodium Chloride 0.9% 1,000 ML IV SCH (10:15)
--- NOTE | 2018-03-23 10:57 | CP.PCM.PN ---
<Mick Cartwright - Last Filed: 03/23/18 11:20> Subjective - Date & Time of Evaluation Date of Evaluation: 03/23/18 Time of Evaluation: 10:57 - Subjective Subjective: pt seen and evaluated at bedside. No acute events overnight. Afebrile. Sitting up in bed, on NC, mild discomfort but able to complete full sentences. Phelgmous cough w/o production continues to bother pt. POX 94% off NC. Pt overall reports improvement in symptoms today but still uncomfortably. No other complaints/concerns. Denies fever/chills, headaches, changes in vision, CP/SOB/Palpitations, N/V/D. Objective - Vital Signs/Intake and Output Vital Signs (last 24 hours): Temp Pulse Resp BP Pulse Ox 98.0 F 94 H 18 123/75 99 03/23/18 08:00 03/23/18 08:00 03/23/18 08:00 03/23/18 08:00 03/23/18 08:00 - Medications Medications: Current Medications Albuterol/Ipratropium (Duoneb 3 Mg/0.5 Mg (3 Ml) Ud) 3 ml INH RQ4 PRN PRN Reason: Shortness of Breath Last Admin: 03/23/18 07:40 Dose: 3 ml Cholecalciferol (Vitamin D) 1,000 intlu PO DAILY [facility] Last Admin: 03/23/18 10:13 Dose: 1,000 intlu Darunavir (Prezista) 800 mg PO HS [facility] Last Admin: 03/22/18 23:59 Dose: 800 mg Docusate Sodium (Colace) 100 mg PO BID PRN PRN Reason: Constipation Last Admin: 03/23/18 10:14 Dose: 100 mg Docusate Sodium (Colace) 100 mg PO HS [facility] Last Admin: 03/22/18 22:16 Dose: 100 mg Dolutegravir Sodium (Tivicay) 50 mg PO DAILY [facility]; Protocol Last Admin: 03/23/18 10:12 Dose: 50 mg Emtricitabine/Tenofovir (Truvada 200 Mg-300 Mg) 1 tab PO DAILY [facility]; Protocol Last Admin: 03/22/18 18:00 Dose: 1 tab Enoxaparin Sodium (Lovenox) 40 mg SC DAILY [facility]; Protocol Last Admin: 03/23/18 10:11 Dose: 40 mg Home Med (Rilpivirine Hcl [Edurant]) 25 mg PO [facility] Last Admin: 03/22/18 23:59 Dose: 25 mg Sodium Chloride (Sodium Chloride 0.9%) 1,000 mls @ 100 mls/hr IV .Q10H [facility] Last Admin: 03/23/18 10:15 Dose: 100 mls/hr Methylprednisolone (Solu-Medrol) 60 mg IV Q8H [facility] Last Admin: 03/23/18 10:11 Dose: 60 mg Montelukast Sodium (Singulair) 10 mg PO [facility] Last Admin: 03/22/18 22:17 Dose: 10 mg Oxcarbazepine (Trileptal) 150 mg PO BID [facility] Last Admin: 03/23/18 10:25 Dose: Not Given Pantoprazole Sodium (Protonix Ec Tab) 40 mg PO DAILY [facility] Last Admin: 03/23/18 10:11 Dose: 40 mg Promethazine HCl (Phenergan) 12.5 mg PO Q4 PRN PRN Reason: Nausea/Vomiting Last Admin: 03/23/18 10:15 Dose: 12.5 mg Ritonavir (Norvir) 100 mg PO [facility] Last Admin: 03/22/18 23:59 Dose: 100 mg Fluticasone/Salmeterol (Advair Diskus 100/50) 1 puff IH Q12 [facility] Last Admin: 03/23/18 10:10 Dose: 1 puff Trimethoprim/Sulfamethoxazole (Bactrim Ds Tab) 1 tab PO [facility]; Protocol Last Admin: 03/22/18 22:17 Dose: 1 tab - Labs Labs: 03/23/18 05:30 03/23/18 05:30 - Constitutional Appears: Non-toxic, No Acute Distress - Head Exam Head Exam: ATRAUMATIC - Eye Exam Eye Exam: EOMI Pupil Exam: PERRL - ENT Exam ENT Exam: Mucous Membranes Moist - Respiratory Exam Respiratory Exam: Decreased Breath Sounds (decreased breath sounds in mid to lower lung amado ), Prolonged Expiratory Phase, Rhonchi, Wheezes (scattered wheezing in upper lung amado ). absent: Clear to Ausculation Bilateral, Rales, Respiratory Distress, NORMAL BREATHING PATTERN (tachypnea ) - Cardiovascular Exam Cardiovascular Exam: REGULAR RHYTHM, RRR, +S1, +S2. absent: JVD, Rubs - GI/Abdominal Exam GI & Abdominal Exam: Soft, Normal Bowel Sounds. absent: Tenderness - Extremities Exam Extremities Exam: Full ROM. absent: Pedal Edema - Neurological Exam Neurological Exam: Alert, Awake, CN II-XII Intact, Oriented x3 - Psychiatric Exam Psychiatric exam: Normal Affect, Normal Mood - Skin Skin Exam: Dry, Intact Assessment and Plan - Assessment and Plan (Free Text) Assessment: 57 yo F with pmhx of Asthma, HIV, trigeminal neuralgia, Dyslipidemia, anemia admitted for acute asthma exacerbation. Plan: Acute Asthma Exacerbation -likely 2/2 to enviornmental trigger exposure -CXR: no active disease -s/p Duoneb x 3 in ER with methylprednisolone 125 mg ivp, Mg sulfate -Pulm: Dr. Yee on board, awaiting recs -Duonebs RQ4 [facility], Q2H PRN -Prednisone 60mg Q8H -Home med: Fluticasone/Vilanterol -Montelukast 10 mg qp qhs -Supplemental O2 via NC PRN, maintain POX ~94% Leukocytosis -improving -12.0 today -likely 2/2 to steroid induced demargination Dehydration -BUN/CR: 22/1.4 on presentation -improving -BUN/Cr: 0.9 on 03/23 -IVF hydration NS @ 100mls/hr Asymptomatic HIV -on HAART -CD4: 347 01/22/2018 -%CD4: 16 -Continue home meds: Dolutegravir, Emtricitabine/Tenofovir Trigeminal Neuralgia -Oxcarbazepine 150 mg PO BID DVT Ppx -Lovenox 40 mg SC QD Diet -regular diet Code status: -Full code <Lokesh Prado D - Last Filed: 03/23/18 14:15> Objective - Vital Signs/Intake and Output Vital Signs (last 24 hours): Temp Pulse Resp BP Pulse Ox 98.0 F 94 H 18 123/75 99 03/23/18 08:00 03/23/18 09:00 03/23/18 08:00 03/23/18 08:00 03/23/18 08:00 - Medications Medications: Current Medications Acetylcysteine (Acetylcysteine 20%) 2 ml INH RBID [facility] Albuterol/Ipratropium (Duoneb 3 Mg/0.5 Mg (3 Ml) Ud) 3 ml INH RQ4 [facility] Last Admin: 03/23/18 11:43 Dose: 3 ml Albuterol/Ipratropium (Duoneb 3 Mg/0.5 Mg (3 Ml) Ud) 3 ml INH Q2H PRN PRN Reason: Shortness of Breath Cholecalciferol (Vitamin D) 1,000 intlu PO DAILY [facility] Last Admin: 03/23/18 10:13 Dose: 1,000 intlu Darunavir (Prezista) 800 mg PO HS [facility] Last Admin: 03/22/18 23:59 Dose: 800 mg Docusate Sodium (Colace) 100 mg PO BID PRN PRN Reason: Constipation Last Admin: 03/23/18 10:14 Dose: 100 mg Docusate Sodium (Colace) 100 mg PO HS [facility] Last Admin: 03/22/18 22:16 Dose: 100 mg Dolutegravir Sodium (Tivicay) 50 mg PO DAILY [facility]; Protocol Last Admin: 03/23/18 10:12 Dose: 50 mg Emtricitabine/Tenofovir (Truvada 200 Mg-300 Mg) 1 tab PO DAILY [facility]; Protocol Last Admin: 03/22/18 18:00 Dose: 1 tab Enoxaparin Sodium (Lovenox) 40 mg SC DAILY [facility]; Protocol Last Admin: 03/23/18 10:11 Dose: 40 mg Home Med (Rilpivirine Hcl [Edurant]) 25 mg PO HS [facility] Last Admin: 03/22/18 23:59 Dose: 25 mg Sodium Chloride (Sodium Chloride 0.9%) 1,000 mls @ 100 mls/hr IV .Q10H [facility] Last Admin: 03/23/18 10:15 Dose: 100 mls/hr Methylprednisolone (Solu-Medrol) 60 mg IV Q8H [facility] Last Admin: 03/23/18 10:11 Dose: 60 mg Montelukast Sodium (Singulair) 10 mg PO HS [facility] Last Admin: 03/22/18 22:17 Dose: 10 mg Oxcarbazepine (Trileptal) 150 mg PO BID [facility] Last Admin: 03/23/18 10:25 Dose: Not Given Pantoprazole Sodium (Protonix Ec Tab) 40 mg PO DAILY [facility] Last Admin: 03/23/18 10:11 Dose: 40 mg Promethazine HCl/Dextromethorphan (Phenergan Dm Syrup) 10 ml PO Q6 PRN PRN Reason: Cough Last Admin: 03/23/18 13:41 Dose: 10 ml Ritonavir (Norvir) 100 mg PO HS [facility] Last Admin: 03/22/18 23:59 Dose: 100 mg Fluticasone/Salmeterol (Advair Diskus 100/50) 1 puff IH Q12 [facility] Last Admin: 03/23/18 10:10 Dose: 1 puff Trimethoprim/Sulfamethoxazole (Bactrim Ds Tab) 1 tab PO HS [facility]; Protocol Last Admin: 03/22/18 22:17 Dose: 1 tab - Labs Labs: 03/23/18 05:30 03/23/18 05:30 Attending/Attestation - Attestation I have personally seen and examined this patient.: Yes I have fully participated in the care of the patient.: Yes I have reviewed all pertinent clinical information, including history, physical exam and plan: Yes Notes (Text): 03/23/18 14:14 Patient seen and examined with resident. Patient remained wheezing with SOB and would need further treatment.
[2018-03-23] MEDS ORDERED: Albuterol-Ipratrop 3 mg / 0.5 (3 ml) UD INH PRN (11:07)
[2018-03-23] MEDS ORDERED: Sodium Chloride 3% for Inhalation 4 ML VIAL.NEB IH PRN (11:08)
[2018-03-23] MEDS: Albuterol-Ipratrop 3 mg / 0.5 (3 ml) UD INH SCH ×4 (11:43→23:21)
[2018-03-23 11:50] LABS: ABG ALLEN TEST YES; ARTERIAL BLOOD GAS HCO3 22.7 mmol/L (21-28); ARTERIAL BLOOD GAS HEMOGLOBIN 12.1 g/dL (11.7-17.4); ARTERIAL BLOOD GAS O2 CAPACITY 16.5 mL/dL (16-24); ARTERIAL BLOOD GAS O2 CONTENT 15.6 ML/dL (15-23); ARTERIAL BLOOD GAS O2 SAT 94.6 % (95-98); ARTERIAL BLOOD GAS PCO2 36 mm/Hg (35-45); ARTERIAL BLOOD GAS PH 7.39 (7.35-7.45); ARTERIAL BLOOD GAS PO2 64 mm/Hg (80-100); ARTERIAL BLOOD GAS TCO2 22.9 mmol/L (22-28)
[2018-03-23 12:15] LABS: BANDS 2 % (0-2); HYPOCHROMIC SLIGHT; LYMPHOCYTE 9 % (20-50); MONOCYTE 5 % (0-10); NEUTROPHIL 84 % (42-75); PLATELET ESTIMATE NORMAL (NORMAL); TOTAL CELLS COUNTED 100
[2018-03-23] MEDS: Promethazine DM 12.5 mg-30 mg/10 ml Syrup PO PRN ×2 (13:41→21:32)
[2018-03-23] MEDS: Acetylcysteine 20% Inhal Soln (4ml) INH SCH (19:32)
--- NOTE | 2018-03-23 21:10 | CON ---
DATE: 03/23/2018 HISTORY OF PRESENT ILLNESS: Ms. Luciano is a 57-year-old female who is well known to me from prior admissions and from being seen in the office. She was admitted via the emergency room with shortness of breath, progressively worsening, for the past 3 days, associated with cough which is nonproductive, fever, chills and body aches. She was referred by the hospitalist for pulmonary evaluation. PAST MEDICAL HISTORY: Remarkable for asthma, bronchiectasis, HIV disease, hyperlipidemia and anemia. FAMILY HISTORY: Nonrevealing. SOCIAL HISTORY: She does not smoke or drink and does not use drugs. REVIEW OF SYSTEMS: Remarkable for shortness of breath, chronic wheezing and pulmonary congestion. PHYSICAL EXAMINATION: GENERAL: The patient is alert, oriented, appears short of breath at rest and on mild exertion, continues to cough during examination. VITAL SIGNS: Blood pressure 123/75 with a pulse of 94, respiratory rate 18-20 per minute. She is afebrile with an O2 saturation of 94% on room air. SKIN: Shows fair turgor with dry skin and scaly rash. HEENT: Pupils are equal and reactive to light and accommodation. Mouth; poor hygiene with mucous engorgement of pharynx. LUNGS: Poor aeration bilaterally with wheezing and dullness at both bases and audible rales. HEART: Regular. BREASTS: Normal. ABDOMEN: Soft, nontender. No organomegaly. EXTREMITIES: Shows no edema or cyanosis. CENTRAL NERVOUS SYSTEM: Grossly intact. LABORATORY DATA: WBC of 12, hemoglobin 11, platelet count 385,000. Sodium 138, potassium 3.9, BUN of 20, creatinine 0.9, serum glucose 173. AST 43. Chest x-ray, no active disease. IMPRESSION: Acute exacerbation of asthma, upper respiratory tract infection, history of bronchiectasis, history of human immunodeficiency virus disease. PLAN: Suggest aerosolized bronchodilators, intravenous steroids, oxygen, antitussives, IV antibiotics, empiric coverage for bronchiectasis. The patient will also be given mucolytics to help expectorate specimen. Further therapy will depend on findings. We will continue to follow with you. Alen Yee MD
[2018-03-23] MEDS: RILPIVIRINE HCL 25 MG PO SCH (21:30)
[2018-03-23] MEDS: Tmp-Smz 800 mg-160 mg DS Tab PO SCH (21:32)
[2018-03-24] MEDS: Albuterol-Ipratrop 3 mg / 0.5 (3 ml) UD INH SCH ×5 (04:40→20:10)
[2018-03-24] MEDS: Sodium Chloride 0.9% 1,000 ML IV SCH ×2 (06:29→20:09)
[2018-03-24 06:32] LABS: ALB/GLOB RATIO 0.9 (1.0-2.1); ALBUMIN 3.7 g/dL (3.5-5.0); ALT/SGPT 24 U/L (9-52); AST/SGOT 21 U/L (14-36); BLOOD UREA NITROGEN 17 mg/dl (7-17); CALCIUM 8.9 mg/dL (8.4-10.2); GFR NON-AFRICAN AMERICAN > 60
[2018-03-24] MEDS: Promethazine DM 12.5 mg-30 mg/10 ml Syrup PO PRN (06:32)
[2018-03-24] MEDS: Acetylcysteine 20% Inhal Soln (4ml) INH SCH ×2 (07:51→20:10)
--- NOTE | 2018-03-24 08:43 | CP.PCM.PN ---
Subjective - Date & Time of Evaluation Date of Evaluation: 03/24/18 Time of Evaluation: 08:47 - Subjective Subjective: STILL DYSPNEIC ON MILD EXERTION CONTINUES TO COUGH WITH MINIMAL EXPECTORATION Objective - Vital Signs/Intake and Output Vital Signs (last 24 hours): Temp Pulse Resp BP Pulse Ox 98.1 F 112 H 20 148/80 95 03/24/18 08:16 03/24/18 08:16 03/24/18 08:16 03/24/18 08:16 03/24/18 08:16 - Medications Medications: Current Medications Acetylcysteine (Acetylcysteine 20%) 2 ml INH RBID [facility] Last Admin: 03/24/18 07:51 Dose: 2 ml Albuterol/Ipratropium (Duoneb 3 Mg/0.5 Mg (3 Ml) Ud) 3 ml INH RQ4 [facility] Last Admin: 03/24/18 07:52 Dose: 3 ml Albuterol/Ipratropium (Duoneb 3 Mg/0.5 Mg (3 Ml) Ud) 3 ml INH Q2H PRN PRN Reason: Shortness of Breath Cholecalciferol (Vitamin D) 1,000 intlu PO DAILY [facility] Last Admin: 03/23/18 10:13 Dose: 1,000 intlu Darunavir (Prezista) 800 mg PO HS [facility] Last Admin: 03/23/18 21:32 Dose: 800 mg Docusate Sodium (Colace) 100 mg PO BID PRN PRN Reason: Constipation Last Admin: 03/23/18 10:14 Dose: 100 mg Docusate Sodium (Colace) 100 mg PO HS [facility] Last Admin: 03/23/18 21:31 Dose: 100 mg Dolutegravir Sodium (Tivicay) 50 mg PO DAILY [facility]; Protocol Last Admin: 03/23/18 10:12 Dose: 50 mg Emtricitabine/Tenofovir (Truvada 200 Mg-300 Mg) 1 tab PO DAILY [facility]; Protocol Last Admin: 03/22/18 18:00 Dose: 1 tab Enoxaparin Sodium (Lovenox) 40 mg SC DAILY [facility]; Protocol Last Admin: 03/23/18 10:11 Dose: 40 mg Home Med (Rilpivirine Hcl [Edurant]) 25 mg PO HS [facility] Last Admin: 03/23/18 21:30 Dose: 25 mg Sodium Chloride (Sodium Chloride 0.9%) 1,000 mls @ 100 mls/hr IV .Q10H [facility] Last Admin: 03/24/18 06:29 Dose: Not Given Methylprednisolone (Solu-Medrol) 60 mg IV Q8H [facility] Last Admin: 03/24/18 00:37 Dose: 60 mg Montelukast Sodium (Singulair) 10 mg PO HS [facility] Last Admin: 03/23/18 21:31 Dose: 10 mg Oxcarbazepine (Trileptal) 150 mg PO BID [facility] Last Admin: 03/23/18 17:54 Dose: Not Given Pantoprazole Sodium (Protonix Ec Tab) 40 mg PO DAILY [facility] Last Admin: 03/23/18 10:11 Dose: 40 mg Promethazine HCl/Dextromethorphan (Phenergan Dm Syrup) 10 ml PO Q6 PRN PRN Reason: Cough Last Admin: 03/24/18 06:32 Dose: 10 ml Ritonavir (Norvir) 100 mg PO [facility] Last Admin: 03/23/18 21:31 Dose: 100 mg Fluticasone/Salmeterol (Advair Diskus 100/50) 1 puff IH Q12 [facility] Last Admin: 03/23/18 21:30 Dose: 1 puff - Labs Labs: 03/23/18 05:30 03/24/18 04:20 - Constitutional Appears: Chronically Ill - Head Exam Head Exam: ATRAUMATIC, NORMAL INSPECTION, NORMOCEPHALIC - Eye Exam Eye Exam: EOMI, Normal appearance, PERRL Pupil Exam: NORMAL ACCOMODATION, PERRL - ENT Exam ENT Exam: Mucous Membranes Moist, Normal Exam - Neck Exam Neck Exam: Full ROM, Normal Inspection. absent: Lymphadenopathy - Respiratory Exam Respiratory Exam: Decreased Breath Sounds, Prolonged Expiratory Phase, Rales - Cardiovascular Exam Cardiovascular Exam: REGULAR RHYTHM, +S1, +S2. absent: Murmur - GI/Abdominal Exam GI & Abdominal Exam: Soft, Normal Bowel Sounds. absent: Tenderness - Rectal Exam Rectal Exam: NORMAL INSPECTION - Extremities Exam Extremities Exam: Full ROM, Normal Capillary Refill, Normal Inspection. absent: Joint Swelling, Pedal Edema - Back Exam Back Exam: NORMAL INSPECTION - Neurological Exam Neurological Exam: Alert, Awake, CN II-XII Intact, Normal Gait, Oriented x3 - Psychiatric Exam Psychiatric exam: Normal Affect, Normal Mood - Skin Skin Exam: Dry, Intact, Normal Color, Warm Assessment and Plan - Assessment and Plan (Free Text) Assessment: ACUTE EXACERBATION OF ASTHMA BRONCHIECTASES HIV DZ Plan: CONTINUE CURRENT RX
--- NOTE | 2018-03-24 09:11 | CP.PCM.PN ---
<FlakobryannajeffreyPatriciaa - Last Filed: 03/24/18 09:48> Subjective - Date & Time of Evaluation Date of Evaluation: 03/24/18 Time of Evaluation: 08:30 - Subjective Subjective: Pt seen/evaluated at bedside this morning. Reports continued cough with minimal expectoriation. Wearing NC. Mildly uncomfortable, but reports slight improvement. No other specific concerns. Objective - Vital Signs/Intake and Output Vital Signs (last 24 hours): Temp Pulse Resp BP Pulse Ox 98.1 F 112 H 20 148/80 95 03/24/18 08:16 03/24/18 08:16 03/24/18 08:16 03/24/18 08:16 03/24/18 08:16 - Medications Medications: Current Medications Acetylcysteine (Acetylcysteine 20%) 2 ml INH RBID [facility] Last Admin: 03/24/18 07:51 Dose: 2 ml Albuterol/Ipratropium (Duoneb 3 Mg/0.5 Mg (3 Ml) Ud) 3 ml INH RQ4 [facility] Last Admin: 03/24/18 07:52 Dose: 3 ml Albuterol/Ipratropium (Duoneb 3 Mg/0.5 Mg (3 Ml) Ud) 3 ml INH Q2H PRN PRN Reason: Shortness of Breath Cholecalciferol (Vitamin D) 1,000 intlu PO DAILY [facility] Last Admin: 03/23/18 10:13 Dose: 1,000 intlu Darunavir (Prezista) 800 mg PO HS [facility] Last Admin: 03/23/18 21:32 Dose: 800 mg Docusate Sodium (Colace) 100 mg PO BID PRN PRN Reason: Constipation Last Admin: 03/23/18 10:14 Dose: 100 mg Docusate Sodium (Colace) 100 mg PO HS [facility] Last Admin: 03/23/18 21:31 Dose: 100 mg Dolutegravir Sodium (Tivicay) 50 mg PO DAILY [facility]; Protocol Last Admin: 03/23/18 10:12 Dose: 50 mg Emtricitabine/Tenofovir (Truvada 200 Mg-300 Mg) 1 tab PO DAILY [facility]; Protocol Last Admin: 03/22/18 18:00 Dose: 1 tab Enoxaparin Sodium (Lovenox) 40 mg SC DAILY [facility]; Protocol Last Admin: 03/23/18 10:11 Dose: 40 mg Home Med (Rilpivirine Hcl [Edurant]) 25 mg PO [facility] Last Admin: 03/23/18 21:30 Dose: 25 mg Sodium Chloride (Sodium Chloride 0.9%) 1,000 mls @ 100 mls/hr IV .Q10H [facility] Last Admin: 03/24/18 06:29 Dose: Not Given Methylprednisolone (Solu-Medrol) 60 mg IV Q8H [facility] Last Admin: 03/24/18 00:37 Dose: 60 mg Montelukast Sodium (Singulair) 10 mg PO [facility] Last Admin: 03/23/18 21:31 Dose: 10 mg Oxcarbazepine (Trileptal) 150 mg PO BID [facility] Last Admin: 03/23/18 17:54 Dose: Not Given Pantoprazole Sodium (Protonix Ec Tab) 40 mg PO DAILY [facility] Last Admin: 03/23/18 10:11 Dose: 40 mg Promethazine HCl/Dextromethorphan (Phenergan Dm Syrup) 10 ml PO Q6 PRN PRN Reason: Cough Last Admin: 03/24/18 06:32 Dose: 10 ml Ritonavir (Norvir) 100 mg PO [facility] Last Admin: 03/23/18 21:31 Dose: 100 mg Fluticasone/Salmeterol (Advair Diskus 100/50) 1 puff IH Q12 [facility] Last Admin: 03/23/18 21:30 Dose: 1 puff - Labs Labs: 03/23/18 05:30 03/24/18 04:20 - Constitutional Appears: No Acute Distress - Head Exam Head Exam: NORMAL INSPECTION, NORMOCEPHALIC - ENT Exam ENT Exam: Mucous Membranes Moist - Respiratory Exam Respiratory Exam: Decreased Breath Sounds, Prolonged Expiratory Phase, Wheezes. absent: Clear to Ausculation Bilateral, Respiratory Distress, NORMAL BREATHING PATTERN - Cardiovascular Exam Cardiovascular Exam: REGULAR RHYTHM, +S1, +S2 - GI/Abdominal Exam GI & Abdominal Exam: Soft, Normal Bowel Sounds - Extremities Exam Extremities Exam: Normal Inspection. absent: Calf Tenderness, Pedal Edema - Neurological Exam Neurological Exam: Awake, Oriented x3 - Psychiatric Exam Psychiatric exam: Normal Mood - Skin Skin Exam: Dry, Intact, Warm Assessment and Plan - Assessment and Plan (Free Text) Assessment: 57 yo F with past medical history of moderate persistent asthma, HIV, trigeminal neuralgia, dyslipidemia, anemia admitted for acute asthma exacerbation of asthma. Still with wheezing and tightness, appears not to be at baseline. Plan: Acute Asthma Exacerbation - Likely 2/2 to environmental trigger exposure - CXR: no active disease - Pulm: Dr. Yee on board, recs appreciated - Duonebs RQ4 [facility], Q2H PRN - Sodium Chloride 4ml INH PRN - Prednisone 60mg IV Q8H - Home med: Fluticasone/Vilanterol - Montelukast 10 mg qp qhs - Azithromycin 500 mg IVPB today; 4 doses of 250 mg daily for the next 4 days - Supplemental O2 via NC PRN, maintain POX ~94% Leukocytosis - Likely 2/2 to steroid induced demargination - WBC 12.0 Dehydration - BUN/CR: 22/1.4 on presentation - Improving; BUN/Cr: 17/0.9 - IV hydration NS @ 100mls/hr Asymptomatic HIV - On HAART - CD4: 347 01/22/2018 - %CD4: 16 - Continue home meds: Dolutegravir, Emtricitabine/Tenofovir Trigeminal Neuralgia - Oxcarbazepine 150 mg PO BID Diet - Regular diet DVT Prophylaxis - Lovenox 40 mg SC QD Code status: - Full code <BarreraJackeline Deb - Last Filed: 03/24/18 15:50> Objective - Vital Signs/Intake and Output Vital Signs (last 24 hours): Temp Pulse Resp BP Pulse Ox 98.1 F 112 H 20 148/80 95 03/24/18 08:16 03/24/18 08:16 03/24/18 08:16 03/24/18 08:16 03/24/18 08:16 - Medications Medications: Current Medications Acetylcysteine (Acetylcysteine 20%) 2 ml INH RBID [facility] Last Admin: 03/24/18 07:51 Dose: 2 ml Albuterol/Ipratropium (Duoneb 3 Mg/0.5 Mg (3 Ml) Ud) 3 ml INH RQ4 [facility] Last Admin: 03/24/18 11:06 Dose: 3 ml Albuterol/Ipratropium (Duoneb 3 Mg/0.5 Mg (3 Ml) Ud) 3 ml INH Q2H PRN PRN Reason: Shortness of Breath Cholecalciferol (Vitamin D) 1,000 intlu PO DAILY [facility] Last Admin: 03/24/18 10:13 Dose: 1,000 intlu Darunavir (Prezista) 800 mg PO HS [facility] Last Admin: 03/23/18 21:32 Dose: 800 mg Docusate Sodium (Colace) 100 mg PO BID PRN PRN Reason: Constipation Last Admin: 03/23/18 10:14 Dose: 100 mg Docusate Sodium (Colace) 100 mg PO HS [facility] Last Admin: 03/23/18 21:31 Dose: 100 mg Dolutegravir Sodium (Tivicay) 50 mg PO DAILY [facility]; Protocol Last Admin: 03/24/18 10:12 Dose: 50 mg Emtricitabine/Tenofovir (Truvada 200 Mg-300 Mg) 1 tab PO DAILY [facility]; Protocol Last Admin: 03/22/18 18:00 Dose: 1 tab Enoxaparin Sodium (Lovenox) 40 mg SC DAILY [facility]; Protocol Last Admin: 03/24/18 10:09 Dose: 40 mg Guaifenesin (Robitussin) 300 mg PO Q4 PRN PRN Reason: Cough Home Med (Rilpivirine Hcl [Edurant]) 25 mg PO HS [facility] Last Admin: 03/23/18 21:30 Dose: 25 mg Sodium Chloride (Sodium Chloride 0.9%) 1,000 mls @ 100 mls/hr IV .Q10H [facility] Last Admin: 03/24/18 06:29 Dose: Not Given Azithromycin 500 mg/ Sodium (Chloride) 250 mls @ 250 mls/hr IVPB DAILY [facility]; Protocol Methylprednisolone (Solu-Medrol) 60 mg IV Q8H [facility] Last Admin: 03/24/18 10:11 Dose: 60 mg Montelukast Sodium (Singulair) 10 mg PO HS [facility] Last Admin: 03/23/18 21:31 Dose: 10 mg Oxcarbazepine (Trileptal) 150 mg PO BID [facility] Last Admin: 03/24/18 10:13 Dose: 150 mg Pantoprazole Sodium (Protonix Ec Tab) 40 mg PO DAILY [facility] Last Admin: 03/24/18 10:10 Dose: 40 mg Promethazine HCl/Dextromethorphan (Phenergan Dm Syrup) 10 ml PO Q6 PRN PRN Reason: Cough Last Admin: 03/24/18 06:32 Dose: 10 ml Ritonavir (Norvir) 100 mg PO HS [facility] Last Admin: 03/23/18 21:31 Dose: 100 mg Fluticasone/Salmeterol (Advair Diskus 100/50) 1 puff IH Q12 [facility] Last Admin: 03/24/18 10:09 Dose: 1 puff - Labs Labs: 03/23/18 05:30 03/24/18 04:20 Attending/Attestation - Attestation I have personally seen and examined this patient.: Yes I have fully participated in the care of the patient.: Yes I have reviewed all pertinent clinical information, including history, physical exam and plan: Yes Notes (Text): Asthma exacerbation, with hx of Moderate Persistent Asthma - still with SOB and wheezing, + dry cough - will admit pt as Inpatient for further IV Solumedrol treatment, RTC Duonebs, and add IV Azithromycon for URTI - Oxygen per NC - discussed case with Dr Yee rec to cont IV Steroids and keep pt in the hosp for further tx of Asthma
[2018-03-24] MEDS ORDERED: Azithromycin 500 MG in Sodium Chloride 0.9% 250 ML IVPB ONE (10:00)
[2018-03-24] MEDS: Enoxaparin 40 mg Syringe SC SCH (10:09)
[2018-03-24] MEDS: Fluticasone-Salmeterol 100-50mcg Diskus IH SCH ×2 (10:09→21:25)
[2018-03-24] MEDS: Pantoprazole 40 mg EC Tab PO SCH (10:10)
[2018-03-24] MEDS: Cholecalciferol 1,000 INTLU TAB PO SCH (10:13)
[2018-03-24] MEDS ORDERED: Influenza Vaccine 60 MCG/0.5 ML SYR (3 yr & up) IM ONE (10:34)
[2018-03-24] MEDS ORDERED: guaiFENesin 600 mg ER Tab PO SCH (13:00)
[2018-03-24] MEDS: guaiFENesin 100 mg/5 ml Syrup UD PO PRN (15:47)
[2018-03-24] MEDS: RILPIVIRINE HCL 25 MG PO SCH (21:27)
[2018-03-25] MEDS: Albuterol-Ipratrop 3 mg / 0.5 (3 ml) UD INH SCH ×7 (00:05→23:41)
[2018-03-25] MEDS: guaiFENesin 100 mg/5 ml Syrup UD PO PRN (01:28)
[2018-03-25] MEDS: Sodium Chloride 0.9% 1,000 ML IV SCH ×2 (02:48→05:56)
[2018-03-25] MEDS: Acetylcysteine 20% Inhal Soln (4ml) INH SCH ×2 (07:28→20:03)
--- NOTE | 2018-03-25 08:37 | CP.PCM.PN ---
Subjective - Date & Time of Evaluation Date of Evaluation: 03/25/18 Time of Evaluation: 08:37 - Subjective Subjective: CONTINUES TO C/O COUGH AND SHORTNESS OF BREATH Objective - Vital Signs/Intake and Output Vital Signs (last 24 hours): Temp Pulse Resp BP Pulse Ox 97.7 F 101 H 20 147/80 95 03/25/18 05:00 03/25/18 05:00 03/25/18 05:00 03/25/18 05:00 03/25/18 05:00 - Medications Medications: Current Medications Acetylcysteine (Acetylcysteine 20%) 2 ml INH RBID [facility] Last Admin: 03/25/18 07:28 Dose: 2 ml Albuterol/Ipratropium (Duoneb 3 Mg/0.5 Mg (3 Ml) Ud) 3 ml INH RQ4 [facility] Last Admin: 03/25/18 07:28 Dose: 3 ml Albuterol/Ipratropium (Duoneb 3 Mg/0.5 Mg (3 Ml) Ud) 3 ml INH Q2H PRN PRN Reason: Shortness of Breath Cholecalciferol (Vitamin D) 1,000 intlu PO DAILY [facility] Last Admin: 03/24/18 10:13 Dose: 1,000 intlu Darunavir (Prezista) 800 mg PO HS [facility] Last Admin: 03/24/18 21:26 Dose: 800 mg Docusate Sodium (Colace) 100 mg PO BID PRN PRN Reason: Constipation Last Admin: 03/23/18 10:14 Dose: 100 mg Docusate Sodium (Colace) 100 mg PO HS [facility] Last Admin: 03/24/18 21:26 Dose: 100 mg Dolutegravir Sodium (Tivicay) 50 mg PO DAILY [facility]; Protocol Last Admin: 03/24/18 10:12 Dose: 50 mg Emtricitabine/Tenofovir (Truvada 200 Mg-300 Mg) 1 tab PO DAILY [facility]; Protocol Last Admin: 03/22/18 18:00 Dose: 1 tab Enoxaparin Sodium (Lovenox) 40 mg SC DAILY [facility]; Protocol Last Admin: 03/24/18 10:09 Dose: 40 mg Guaifenesin (Robitussin) 300 mg PO Q4 PRN PRN Reason: Cough Last Admin: 03/25/18 01:28 Dose: 300 mg Home Med (Rilpivirine Hcl [Edurant]) 25 mg PO HS [facility] Last Admin: 03/24/18 21:27 Dose: 25 mg Azithromycin 500 mg/ Sodium (Chloride) 250 mls @ 250 mls/hr IVPB DAILY [facility]; Protocol Methylprednisolone (Solu-Medrol) 60 mg IV Q8H [facility] Last Admin: 03/25/18 01:25 Dose: 60 mg Montelukast Sodium (Singulair) 10 mg PO HS [facility] Last Admin: 03/24/18 21:27 Dose: 10 mg Oxcarbazepine (Trileptal) 150 mg PO BID [facility] Last Admin: 03/24/18 17:13 Dose: Not Given Pantoprazole Sodium (Protonix Ec Tab) 40 mg PO DAILY [facility] Last Admin: 03/24/18 10:10 Dose: 40 mg Promethazine HCl/Dextromethorphan (Phenergan Dm Syrup) 10 ml PO Q6 PRN PRN Reason: Cough Last Admin: 03/24/18 06:32 Dose: 10 ml Ritonavir (Norvir) 100 mg PO [facility] Last Admin: 03/24/18 21:26 Dose: 100 mg Fluticasone/Salmeterol (Advair Diskus 100/50) 1 puff IH Q12 [facility] Last Admin: 03/24/18 21:25 Dose: 1 puff - Labs Labs: 03/23/18 05:30 03/24/18 04:20 - Constitutional Appears: Chronically Ill - Head Exam Head Exam: ATRAUMATIC, NORMAL INSPECTION, NORMOCEPHALIC - Eye Exam Eye Exam: EOMI, Normal appearance, PERRL Pupil Exam: NORMAL ACCOMODATION, PERRL - ENT Exam ENT Exam: Mucous Membranes Moist, Normal Exam - Neck Exam Neck Exam: Full ROM, Normal Inspection. absent: Lymphadenopathy - Respiratory Exam Respiratory Exam: Decreased Breath Sounds, Prolonged Expiratory Phase, Rales, Wheezes, NORMAL BREATHING PATTERN - Cardiovascular Exam Cardiovascular Exam: REGULAR RHYTHM, +S1, +S2. absent: Murmur - GI/Abdominal Exam GI & Abdominal Exam: Soft, Normal Bowel Sounds. absent: Tenderness - Rectal Exam Rectal Exam: NORMAL INSPECTION - Extremities Exam Extremities Exam: Full ROM, Normal Capillary Refill, Normal Inspection. absent: Joint Swelling, Pedal Edema - Back Exam Back Exam: NORMAL INSPECTION - Neurological Exam Neurological Exam: Alert, Awake, CN II-XII Intact, Normal Gait, Oriented x3 - Psychiatric Exam Psychiatric exam: Normal Affect, Normal Mood - Skin Skin Exam: Dry, Intact, Normal Color, Warm Assessment and Plan - Assessment and Plan (Free Text) Assessment: ASTHMA EXACERBATION URI MUCUS PLUGGING OF AIRWAYS HIV DZ Plan: ADD THEOPHYLLINE TO RX CONTINUE BRONCHODILATORS AND ANTITUSSIVES
[2018-03-25] MEDS: Fluticasone-Salmeterol 100-50mcg Diskus IH SCH ×2 (09:23→21:34)
[2018-03-25] MEDS: Promethazine DM 12.5 mg-30 mg/10 ml Syrup PO PRN ×2 (09:25→18:08)
[2018-03-25] MEDS: Enoxaparin 40 mg Syringe SC SCH (09:25)
[2018-03-25] MEDS: Pantoprazole 40 mg EC Tab PO SCH (09:26)
[2018-03-25] MEDS: Azithromycin 500 MG in Sodium Chloride 0.9% 250 ML IVPB SCH (09:29)
[2018-03-25] MEDS: THEOPHYLLINE 400 MG T24(UNIPHYL) PO SCH (09:29)
[2018-03-25] MEDS: Cholecalciferol 1,000 INTLU TAB PO SCH (09:30)
--- NOTE | 2018-03-25 12:26 | CP.PCM.PN ---
<Charlene Cameron - Last Filed: 03/25/18 12:24> Subjective - Date & Time of Evaluation Date of Evaluation: 03/25/18 Time of Evaluation: 10:20 - Subjective Subjective: Pt seen/evaluated at bedside this morning; reports feeling same as yesterday. Continues to have bothersome cough with minimal expectoration, and is still wearing NC. States she walks to the bathroom but feels some shortness of breath when she does so. No other specific concerns. Objective - Vital Signs/Intake and Output Vital Signs (last 24 hours): Temp Pulse Resp BP Pulse Ox 98.1 F 93 H 18 162/93 H 98 03/25/18 09:15 03/25/18 09:15 03/25/18 09:15 03/25/18 09:15 03/25/18 09:15 - Medications Medications: Current Medications Acetylcysteine (Acetylcysteine 20%) 2 ml INH RBID [facility] Last Admin: 03/25/18 07:28 Dose: 2 ml Albuterol/Ipratropium (Duoneb 3 Mg/0.5 Mg (3 Ml) Ud) 3 ml INH RQ4 [facility] Last Admin: 03/25/18 11:17 Dose: 3 ml Albuterol/Ipratropium (Duoneb 3 Mg/0.5 Mg (3 Ml) Ud) 3 ml INH Q2H PRN PRN Reason: Shortness of Breath Cholecalciferol (Vitamin D) 1,000 intlu PO DAILY [facility] Last Admin: 03/25/18 09:30 Dose: 1,000 intlu Darunavir (Prezista) 800 mg PO HS [facility] Last Admin: 03/24/18 21:26 Dose: 800 mg Docusate Sodium (Colace) 100 mg PO BID PRN PRN Reason: Constipation Last Admin: 03/25/18 09:24 Dose: 100 mg Docusate Sodium (Colace) 100 mg PO HS [facility] Last Admin: 03/24/18 21:26 Dose: 100 mg Dolutegravir Sodium (Tivicay) 50 mg PO DAILY [facility]; Protocol Last Admin: 03/25/18 09:27 Dose: 50 mg Emtricitabine/Tenofovir (Truvada 200 Mg-300 Mg) 1 tab PO DAILY [facility]; Protocol Last Admin: 03/22/18 18:00 Dose: 1 tab Enoxaparin Sodium (Lovenox) 40 mg SC DAILY [facility]; Protocol Last Admin: 03/25/18 09:25 Dose: 40 mg Guaifenesin (Robitussin) 300 mg PO Q4 PRN PRN Reason: Cough Last Admin: 03/25/18 01:28 Dose: 300 mg Home Med (Rilpivirine Hcl [Edurant]) 25 mg PO HS [facility] Last Admin: 03/24/18 21:27 Dose: 25 mg Azithromycin 500 mg/ Sodium (Chloride) 250 mls @ 250 mls/hr IVPB DAILY [facility]; Protocol Last Admin: 03/25/18 09:29 Dose: 250 mls/hr Methylprednisolone (Solu-Medrol) 60 mg IV Q8H [facility] Last Admin: 03/25/18 09:26 Dose: 60 mg Montelukast Sodium (Singulair) 10 mg PO HS [facility] Last Admin: 03/24/18 21:27 Dose: 10 mg Oxcarbazepine (Trileptal) 150 mg PO BID [facility] Last Admin: 03/25/18 09:28 Dose: Not Given Pantoprazole Sodium (Protonix Ec Tab) 40 mg PO DAILY [facility] Last Admin: 03/25/18 09:26 Dose: 40 mg Promethazine HCl/Dextromethorphan (Phenergan Dm Syrup) 10 ml PO Q6 PRN PRN Reason: Cough Last Admin: 03/25/18 09:25 Dose: 10 ml Ritonavir (Norvir) 100 mg PO HS [facility] Last Admin: 03/24/18 21:26 Dose: 100 mg Fluticasone/Salmeterol (Advair Diskus 100/50) 1 puff IH Q12 [facility] Last Admin: 03/25/18 09:23 Dose: 1 puff Theophylline (Uniphyl) 400 mg PO DAILY [facility] Last Admin: 03/25/18 09:29 Dose: 400 mg - Labs Labs: 03/23/18 05:30 03/24/18 04:20 - Constitutional Appears: Non-toxic - Head Exam Head Exam: NORMAL INSPECTION - Eye Exam Eye Exam: Normal appearance - ENT Exam ENT Exam: Mucous Membranes Moist - Neck Exam Neck Exam: Full ROM - Respiratory Exam Respiratory Exam: Decreased Breath Sounds, Prolonged Expiratory Phase, Wheezes - Cardiovascular Exam Cardiovascular Exam: REGULAR RHYTHM, +S1, +S2 - GI/Abdominal Exam GI & Abdominal Exam: Soft. absent: Tenderness - Extremities Exam Extremities Exam: Normal Inspection. absent: Calf Tenderness - Neurological Exam Neurological Exam: Alert, Oriented x3 - Psychiatric Exam Psychiatric exam: Normal Affect - Skin Skin Exam: Dry, Warm Assessment and Plan - Assessment and Plan (Free Text) Assessment: 57 yo F with past medical history of moderate persistent asthma, HIV, trigeminal neuralgia, dyslipidemia, anemia admitted for acute asthma exacerbation of asthma. Still with wheezing and tightness, appears not to be at baseline. Plan: Acute Asthma Exacerbation - CXR: no active disease - Pulm: Dr. Yee on board, recs appreciated - add theophylline - Duonebs RQ4 [facility], Q2H PRN - Sodium Chloride 4ml INH PRN - Prednisone 60mg IV Q8H - Home med: Fluticasone/Vilanterol - Montelukast 10 mg qhs - Supplemental O2 via NC PRN, maintain POX ~94% Upper Respiratory Infection - Azithromycin 500 mg IVPB daily; today is day 2 Leukocytosis - May be steroid induced - WBC 12.0 - F/u CBC Dehydration - BUN/CR: 22/1.4 on presentation - Improved with hydration, BUN/Cr: 17/0.9 - BMP Asymptomatic HIV - On HAART - CD4: 347 01/22/2018 - %CD4: 16 - Continue home meds: Dolutegravir, Emtricitabine/Tenofovir Trigeminal Neuralgia - Oxcarbazepine 150 mg PO BID Diet - Regular diet DVT Prophylaxis - Lovenox 40 mg SC QD <Lokesh Prado D - Last Filed: 03/25/18 13:17> Objective - Vital Signs/Intake and Output Vital Signs (last 24 hours): Temp Pulse Resp BP Pulse Ox 98.1 F 93 H 18 162/93 H 98 03/25/18 09:15 03/25/18 09:15 03/25/18 09:15 03/25/18 09:15 03/25/18 09:15 - Medications Medications: Current Medications Acetylcysteine (Acetylcysteine 20%) 2 ml INH RBID [facility] Last Admin: 03/25/18 07:28 Dose: 2 ml Albuterol/Ipratropium (Duoneb 3 Mg/0.5 Mg (3 Ml) Ud) 3 ml INH RQ4 [facility] Last Admin: 03/25/18 11:17 Dose: 3 ml Albuterol/Ipratropium (Duoneb 3 Mg/0.5 Mg (3 Ml) Ud) 3 ml INH Q2H PRN PRN Reason: Shortness of Breath Cholecalciferol (Vitamin D) 1,000 intlu PO DAILY [facility] Last Admin: 03/25/18 09:30 Dose: 1,000 intlu Darunavir (Prezista) 800 mg PO HS [facility] Last Admin: 03/24/18 21:26 Dose: 800 mg Docusate Sodium (Colace) 100 mg PO BID PRN PRN Reason: Constipation Last Admin: 03/25/18 09:24 Dose: 100 mg Docusate Sodium (Colace) 100 mg PO HS [facility] Last Admin: 03/24/18 21:26 Dose: 100 mg Dolutegravir Sodium (Tivicay) 50 mg PO DAILY [facility]; Protocol Last Admin: 03/25/18 09:27 Dose: 50 mg Emtricitabine/Tenofovir (Truvada 200 Mg-300 Mg) 1 tab PO DAILY [facility]; Protocol Last Admin: 03/22/18 18:00 Dose: 1 tab Enoxaparin Sodium (Lovenox) 40 mg SC DAILY [facility]; Protocol Last Admin: 03/25/18 09:25 Dose: 40 mg Guaifenesin (Robitussin) 300 mg PO Q4 PRN PRN Reason: Cough Last Admin: 03/25/18 01:28 Dose: 300 mg Home Med (Rilpivirine Hcl [Edurant]) 25 mg PO HS [facility] Last Admin: 03/24/18 21:27 Dose: 25 mg Azithromycin 500 mg/ Sodium (Chloride) 250 mls @ 250 mls/hr IVPB DAILY [facility]; Protocol Last Admin: 03/25/18 09:29 Dose: 250 mls/hr Methylprednisolone (Solu-Medrol) 60 mg IV Q8H [facility] Last Admin: 03/25/18 09:26 Dose: 60 mg Montelukast Sodium (Singulair) 10 mg PO HS [facility] Last Admin: 03/24/18 21:27 Dose: 10 mg Oxcarbazepine (Trileptal) 150 mg PO BID [facility] Last Admin: 03/25/18 09:28 Dose: Not Given Pantoprazole Sodium (Protonix Ec Tab) 40 mg PO DAILY [facility] Last Admin: 03/25/18 09:26 Dose: 40 mg Promethazine HCl/Dextromethorphan (Phenergan Dm Syrup) 10 ml PO Q6 PRN PRN Reason: Cough Last Admin: 03/25/18 09:25 Dose: 10 ml Ritonavir (Norvir) 100 mg PO HS [facility] Last Admin: 03/24/18 21:26 Dose: 100 mg Fluticasone/Salmeterol (Advair Diskus 100/50) 1 puff IH Q12 [facility] Last Admin: 03/25/18 09:23 Dose: 1 puff Theophylline (Uniphyl) 400 mg PO DAILY [facility] Last Admin: 03/25/18 09:29 Dose: 400 mg - Labs Labs: 03/23/18 05:30 03/24/18 04:20 Attending/Attestation - Attestation I have personally seen and examined this patient.: Yes I have fully participated in the care of the patient.: Yes I have reviewed all pertinent clinical information, including history, physical exam and plan: Yes Notes (Text): 03/25/18 13:14 Patient seen and examined with resident. Case discussed and agreed with assessment and plan of management.
[2018-03-25] MEDS: RILPIVIRINE HCL 25 MG PO SCH (21:35)
[2018-03-26] MEDS: Albuterol-Ipratrop 3 mg / 0.5 (3 ml) UD INH SCH ×6 (05:05→23:29)
[2018-03-26 06:11] LABS: HEMOGLOBIN 10.1 g/dL (12.0-16.0); MEAN CELL VOLUME 89.7 fl (81.0-99.0); MEAN CORPUSCULAR HEMOGLOBIN 29.1 pg (27.0-31.0); MEAN CORPUSCULAR HGB CONC 32.5 g/dL (33.0-37.0); RBC 3.48 Mil/uL (3.80-5.20); RED CELL DISTRIBUTION WIDTH 14.1 % (11.5-14.5); WHITE BLOOD COUNT 8.4 K/uL (4.8-10.8)
[2018-03-26 06:21] LABS: BLOOD UREA NITROGEN 13 mg/dl (7-17); CALCIUM 8.8 mg/dL (8.4-10.2); GFR NON-AFRICAN AMERICAN > 60
[2018-03-26] MEDS ORDERED: Potassium Chloride 20 mEq ER Tab PO ONE (06:51)
[2018-03-26] MEDS: Acetylcysteine 20% Inhal Soln (4ml) INH SCH ×2 (07:11→19:22)
[2018-03-26] MEDS: Fluticasone-Salmeterol 100-50mcg Diskus IH SCH ×2 (09:07→22:06)
[2018-03-26] MEDS: Enoxaparin 40 mg Syringe SC SCH (09:08)
[2018-03-26] MEDS: Pantoprazole 40 mg EC Tab PO SCH (09:09)
[2018-03-26] MEDS: THEOPHYLLINE 400 MG T24(UNIPHYL) PO SCH (09:09)
[2018-03-26] MEDS: Cholecalciferol 1,000 INTLU TAB PO SCH (09:09)
--- NOTE | 2018-03-26 09:14 | CP.PCM.PN ---
Subjective - Date & Time of Evaluation Date of Evaluation: 03/26/18 Time of Evaluation: 09:14 - Subjective Subjective: SLIGHT IMPROVEMENT OF SOB STILL COUGHING AND WHEEZING Objective - Vital Signs/Intake and Output Vital Signs (last 24 hours): Temp Pulse Resp BP Pulse Ox 97.9 F 106 H 18 157/89 H 97 03/26/18 08:10 03/26/18 08:10 03/26/18 08:10 03/26/18 08:10 03/26/18 08:10 - Medications Medications: Current Medications Acetylcysteine (Acetylcysteine 20%) 2 ml INH RBID [facility] Last Admin: 03/26/18 07:11 Dose: 2 ml Albuterol/Ipratropium (Duoneb 3 Mg/0.5 Mg (3 Ml) Ud) 3 ml INH RQ4 [facility] Last Admin: 03/26/18 07:11 Dose: 3 ml Albuterol/Ipratropium (Duoneb 3 Mg/0.5 Mg (3 Ml) Ud) 3 ml INH Q2H PRN PRN Reason: Shortness of Breath Cholecalciferol (Vitamin D) 1,000 intlu PO DAILY [facility] Last Admin: 03/26/18 09:09 Dose: 1,000 intlu Darunavir (Prezista) 800 mg PO HS [facility] Last Admin: 03/25/18 21:34 Dose: 800 mg Docusate Sodium (Colace) 100 mg PO BID PRN PRN Reason: Constipation Last Admin: 03/25/18 09:24 Dose: 100 mg Docusate Sodium (Colace) 100 mg PO HS [facility] Last Admin: 03/25/18 21:34 Dose: 100 mg Dolutegravir Sodium (Tivicay) 50 mg PO DAILY [facility]; Protocol Last Admin: 03/26/18 09:11 Dose: 50 mg Emtricitabine/Tenofovir (Truvada 200 Mg-300 Mg) 1 tab PO DAILY [facility]; Protocol Last Admin: 03/22/18 18:00 Dose: 1 tab Enoxaparin Sodium (Lovenox) 40 mg SC DAILY [facility]; Protocol Last Admin: 03/26/18 09:08 Dose: 40 mg Guaifenesin (Robitussin) 300 mg PO Q4 PRN PRN Reason: Cough Last Admin: 03/25/18 01:28 Dose: 300 mg Home Med (Rilpivirine Hcl [Edurant]) 25 mg PO HS [facility] Last Admin: 03/25/18 21:35 Dose: 25 mg Azithromycin 500 mg/ Sodium (Chloride) 250 mls @ 250 mls/hr IVPB DAILY [facility]; Protocol Last Admin: 03/25/18 09:29 Dose: 250 mls/hr Lactulose (Enulose) 20 gm PO DAILY PRN PRN Reason: Constipation Last Admin: 03/25/18 22:42 Dose: 20 gm Methylprednisolone (Solu-Medrol) 60 mg IV Q8H [facility] Last Admin: 03/26/18 01:25 Dose: 60 mg Montelukast Sodium (Singulair) 10 mg PO HS [facility] Last Admin: 03/25/18 21:34 Dose: 10 mg Oxcarbazepine (Trileptal) 150 mg PO BID [facility] Last Admin: 03/26/18 09:09 Dose: 150 mg Pantoprazole Sodium (Protonix Ec Tab) 40 mg PO DAILY [facility] Last Admin: 03/26/18 09:09 Dose: 40 mg Promethazine HCl/Dextromethorphan (Phenergan Dm Syrup) 10 ml PO Q6 PRN PRN Reason: Cough Last Admin: 03/25/18 18:08 Dose: 10 ml Ritonavir (Norvir) 100 mg PO HS [facility] Last Admin: 03/25/18 21:34 Dose: 100 mg Fluticasone/Salmeterol (Advair Diskus 100/50) 1 puff IH Q12 [facility] Last Admin: 03/26/18 09:07 Dose: 1 puff Theophylline (Uniphyl) 400 mg PO DAILY [facility] Last Admin: 03/26/18 09:09 Dose: 400 mg - Labs Labs: 03/26/18 04:35 03/26/18 04:35 - Constitutional Appears: Chronically Ill - Head Exam Head Exam: ATRAUMATIC, NORMAL INSPECTION, NORMOCEPHALIC - Eye Exam Eye Exam: EOMI, Normal appearance, PERRL Pupil Exam: NORMAL ACCOMODATION, PERRL - ENT Exam ENT Exam: Mucous Membranes Moist, Normal Exam - Neck Exam Neck Exam: Full ROM, Normal Inspection. absent: Lymphadenopathy - Respiratory Exam Respiratory Exam: Decreased Breath Sounds, Prolonged Expiratory Phase, Rales, Wheezes, NORMAL BREATHING PATTERN - Cardiovascular Exam Cardiovascular Exam: REGULAR RHYTHM, +S1, +S2. absent: Murmur - GI/Abdominal Exam GI & Abdominal Exam: Soft, Normal Bowel Sounds. absent: Tenderness - Rectal Exam Rectal Exam: NORMAL INSPECTION - Extremities Exam Extremities Exam: Full ROM, Normal Capillary Refill, Normal Inspection. absent: Joint Swelling, Pedal Edema - Back Exam Back Exam: NORMAL INSPECTION - Neurological Exam Neurological Exam: Alert, Awake, CN II-XII Intact, Normal Gait, Oriented x3 - Psychiatric Exam Psychiatric exam: Normal Affect, Normal Mood - Skin Skin Exam: Dry, Intact, Normal Color, Warm Assessment and Plan - Assessment and Plan (Free Text) Assessment: ACUTE ASTHMA BRONCHIECTASES HIV DZ Plan: TAPER STEROIDS CONTINUE BRONCHODILATOR RX SUGGEST D/C HOME ON SATURDAY IF STABLE
[2018-03-26] MEDS: Azithromycin 500 MG in Sodium Chloride 0.9% 250 ML IVPB SCH (09:19)
[2018-03-26] MEDS ORDERED: Potassium Chloride 10 mEq ER Tab PO ONE (10:03)
--- NOTE | 2018-03-26 10:29 | CP.PCM.PN ---
<Patricia Camerona - Last Filed: 03/26/18 10:13> Subjective - Date & Time of Evaluation Date of Evaluation: 03/26/18 Time of Evaluation: 09:40 - Subjective Subjective: Pt seen/evaluated at bedside; no acute events overnight. Still has cough and some shortness of breath, wearing NC. Otherwise stable, no chest pain, no abdominal pain, no calf pain/swelling. Objective - Vital Signs/Intake and Output Vital Signs (last 24 hours): Temp Pulse Resp BP Pulse Ox 97.9 F 106 H 18 157/89 H 97 03/26/18 08:10 03/26/18 08:10 03/26/18 08:10 03/26/18 08:10 03/26/18 08:10 - Medications Medications: Current Medications Acetylcysteine (Acetylcysteine 20%) 2 ml INH RBID [facility] Last Admin: 03/26/18 07:11 Dose: 2 ml Albuterol/Ipratropium (Duoneb 3 Mg/0.5 Mg (3 Ml) Ud) 3 ml INH RQ4 [facility] Last Admin: 03/26/18 07:11 Dose: 3 ml Albuterol/Ipratropium (Duoneb 3 Mg/0.5 Mg (3 Ml) Ud) 3 ml INH Q2H PRN PRN Reason: Shortness of Breath Cholecalciferol (Vitamin D) 1,000 intlu PO DAILY [facility] Last Admin: 03/26/18 09:09 Dose: 1,000 intlu Darunavir (Prezista) 800 mg PO HS [facility] Last Admin: 03/25/18 21:34 Dose: 800 mg Docusate Sodium (Colace) 100 mg PO BID PRN PRN Reason: Constipation Last Admin: 03/25/18 09:24 Dose: 100 mg Docusate Sodium (Colace) 100 mg PO HS [facility] Last Admin: 03/25/18 21:34 Dose: 100 mg Dolutegravir Sodium (Tivicay) 50 mg PO DAILY [facility]; Protocol Last Admin: 03/26/18 09:11 Dose: 50 mg Emtricitabine/Tenofovir (Truvada 200 Mg-300 Mg) 1 tab PO DAILY [facility]; Protocol Last Admin: 03/22/18 18:00 Dose: 1 tab Enoxaparin Sodium (Lovenox) 40 mg SC DAILY [facility]; Protocol Last Admin: 03/26/18 09:08 Dose: 40 mg Home Med (Rilpivirine Hcl [Edurant]) 25 mg PO HS [facility] Last Admin: 03/25/18 21:35 Dose: 25 mg Azithromycin 500 mg/ Sodium (Chloride) 250 mls @ 250 mls/hr IVPB DAILY [facility]; Protocol Last Admin: 03/26/18 09:19 Dose: 250 mls/hr Lactulose (Enulose) 20 gm PO DAILY PRN PRN Reason: Constipation Last Admin: 03/25/18 22:42 Dose: 20 gm Methylprednisolone (Solu-Medrol) 60 mg IV Q12 [facility] Montelukast Sodium (Singulair) 10 mg PO HS [facility] Last Admin: 03/25/18 21:34 Dose: 10 mg Oxcarbazepine (Trileptal) 150 mg PO BID [facility] Last Admin: 03/26/18 09:09 Dose: 150 mg Pantoprazole Sodium (Protonix Ec Tab) 40 mg PO DAILY [facility] Last Admin: 03/26/18 09:09 Dose: 40 mg Promethazine HCl/Dextromethorphan (Phenergan Dm Syrup) 10 ml PO Q6 PRN PRN Reason: Cough Last Admin: 03/25/18 18:08 Dose: 10 ml Ritonavir (Norvir) 100 mg PO HS [facility] Last Admin: 03/25/18 21:34 Dose: 100 mg Fluticasone/Salmeterol (Advair Diskus 100/50) 1 puff IH Q12 [facility] Last Admin: 03/26/18 09:07 Dose: 1 puff Theophylline (Uniphyl) 400 mg PO DAILY [facility] Last Admin: 03/26/18 09:09 Dose: 400 mg - Labs Labs: 03/26/18 04:35 03/26/18 04:35 - Constitutional Appears: No Acute Distress, Chronically Ill - Eye Exam Eye Exam: Normal appearance - ENT Exam ENT Exam: Mucous Membranes Moist - Respiratory Exam Respiratory Exam: Decreased Breath Sounds, Prolonged Expiratory Phase, Wheezes, NORMAL BREATHING PATTERN. absent: Clear to Ausculation Bilateral - Cardiovascular Exam Cardiovascular Exam: REGULAR RHYTHM, +S1, +S2 - GI/Abdominal Exam GI & Abdominal Exam: Soft. absent: Tenderness - Extremities Exam Extremities Exam: absent: Calf Tenderness - Neurological Exam Neurological Exam: Alert, Oriented x3 - Psychiatric Exam Psychiatric exam: Normal Mood - Skin Skin Exam: Dry, Warm Assessment and Plan - Assessment and Plan (Free Text) Assessment: 57 yo F with past medical history of moderate persistent asthma, HIV, trigeminal neuralgia, dyslipidemia, anemia admitted for acute asthma exacerbation of asthma. Still with wheezing and tightness, appears not to be at baseline. Plan: Acute Asthma Exacerbation - CXR: no active disease - Pulm: Dr. Yee on board, sees pt outpt as well, recs appreciated - added theophylline, acetylcysteine, promethazine, rec taper steroids and planned d/c Wednesday 03/28 if stable - Repeat ABG today - Duonebs RQ4 [facility], Q2H PRN - Sodium Chloride 4ml INH PRN - Prednisone 60mg IV Q12H - Home med: Fluticasone/Vilanterol - Montelukast 10 mg qhs - Theophylline 400 mg PO daily - Promethazine 10 ml PO Q6H - Acetylcysteine 20%, 2ml INH BID - Supplemental O2 via NC PRN, maintain POX ~94% Upper Respiratory Infection - Azithromycin 500 mg IVPB daily; today is day 3 Hypokalemia - K 3.5 today - 40 mEq PO KCl ordered - BMP tomorrow Leukocytosis - Resolved, WBC 8.4 today - Was 12.4 on admission Dehydration - Resolved, improved with hydration; BUN/Cr 13/0.9 today - BUN/CR: 22/1.4 on presentation Asymptomatic HIV - On HAART - CD4: 347 01/22/2018 - %CD4: 16 - Continue home meds: Dolutegravir, Emtricitabine/Tenofovir Trigeminal Neuralgia - Oxcarbazepine 150 mg PO BID Diet - Regular diet DVT Prophylaxis - Lovenox 40 mg SC QD <Lokesh Prado D - Last Filed: 03/26/18 12:13> Objective - Vital Signs/Intake and Output Vital Signs (last 24 hours): Temp Pulse Resp BP Pulse Ox 98.1 F 104 H 18 138/77 97 03/26/18 11:53 03/26/18 11:53 03/26/18 11:53 03/26/18 11:53 03/26/18 11:53 - Medications Medications: Current Medications Acetylcysteine (Acetylcysteine 20%) 2 ml INH RBID [facility] Last Admin: 03/26/18 07:11 Dose: 2 ml Albuterol/Ipratropium (Duoneb 3 Mg/0.5 Mg (3 Ml) Ud) 3 ml INH RQ4 [facility] Last Admin: 03/26/18 11:09 Dose: 3 ml Albuterol/Ipratropium (Duoneb 3 Mg/0.5 Mg (3 Ml) Ud) 3 ml INH Q2H PRN PRN Reason: Shortness of Breath Cholecalciferol (Vitamin D) 1,000 intlu PO DAILY [facility] Last Admin: 03/26/18 09:09 Dose: 1,000 intlu Darunavir (Prezista) 800 mg PO HS [facility] Last Admin: 03/25/18 21:34 Dose: 800 mg Docusate Sodium (Colace) 100 mg PO BID PRN PRN Reason: Constipation Last Admin: 03/25/18 09:24 Dose: 100 mg Docusate Sodium (Colace) 100 mg PO HS [facility] Last Admin: 03/25/18 21:34 Dose: 100 mg Dolutegravir Sodium (Tivicay) 50 mg PO DAILY [facility]; Protocol Last Admin: 03/26/18 09:11 Dose: 50 mg Emtricitabine/Tenofovir (Truvada 200 Mg-300 Mg) 1 tab PO DAILY [facility]; Protocol Last Admin: 03/22/18 18:00 Dose: 1 tab Enoxaparin Sodium (Lovenox) 40 mg SC DAILY [facility]; Protocol Last Admin: 03/26/18 09:08 Dose: 40 mg Home Med (Rilpivirine Hcl [Edurant]) 25 mg PO HS [facility] Last Admin: 03/25/18 21:35 Dose: 25 mg Azithromycin 500 mg/ Sodium (Chloride) 250 mls @ 250 mls/hr IVPB DAILY [facility]; Protocol Last Admin: 03/26/18 09:19 Dose: 250 mls/hr Lactulose (Enulose) 20 gm PO DAILY PRN PRN Reason: Constipation Last Admin: 03/25/18 22:42 Dose: 20 gm Methylprednisolone (Solu-Medrol) 60 mg IV Q12 [facility] Montelukast Sodium (Singulair) 10 mg PO HS [facility] Last Admin: 03/25/18 21:34 Dose: 10 mg Oxcarbazepine (Trileptal) 150 mg PO BID [facility] Last Admin: 03/26/18 09:09 Dose: 150 mg Pantoprazole Sodium (Protonix Ec Tab) 40 mg PO DAILY [facility] Last Admin: 03/26/18 09:09 Dose: 40 mg Promethazine HCl/Dextromethorphan (Phenergan Dm Syrup) 10 ml PO Q6 PRN PRN Reason: Cough Last Admin: 03/25/18 18:08 Dose: 10 ml Ritonavir (Norvir) 100 mg PO HS [facility] Last Admin: 03/25/18 21:34 Dose: 100 mg Fluticasone/Salmeterol (Advair Diskus 100/50) 1 puff IH Q12 [facility] Last Admin: 03/26/18 09:07 Dose: 1 puff Theophylline (Uniphyl) 400 mg PO DAILY [facility] Last Admin: 03/26/18 09:09 Dose: 400 mg - Labs Labs: 03/26/18 04:35 03/26/18 04:35 Attending/Attestation - Attestation I have personally seen and examined this patient.: Yes I have fully participated in the care of the patient.: Yes I have reviewed all pertinent clinical information, including history, physical exam and plan: Yes Notes (Text): 03/26/18 12:11 Patient seen and examined with resident. Admitted feeling a little better but still with SOB and wheezing. As per pulmonary consult patient probably could be discharged on Saturday if improved and stable.
[2018-03-26 11:11] LABS: ABG ALLEN TEST YES; ARTERIAL BLOOD GAS HCO3 26.8 mmol/L (21-28); ARTERIAL BLOOD GAS HEMOGLOBIN 11.6 g/dL (11.7-17.4); ARTERIAL BLOOD GAS O2 CONTENT 15.6 ML/dL (15-23); ARTERIAL BLOOD GAS O2 SAT 97.4 % (95-98); ARTERIAL BLOOD GAS PCO2 42 mm/Hg (35-45); ARTERIAL BLOOD GAS PH 7.42 (7.35-7.45); ARTERIAL BLOOD GAS PO2 85 mm/Hg (80-100); ARTERIAL BLOOD GAS TCO2 28.5 mmol/L (22-28)
[2018-03-26] MEDS: RILPIVIRINE HCL 25 MG PO SCH (22:12)
[2018-03-27] MEDS: Albuterol-Ipratrop 3 mg / 0.5 (3 ml) UD INH SCH ×6 (05:11→23:25)
[2018-03-27 06:12] LABS: BLOOD UREA NITROGEN 17 mg/dl (7-17); CALCIUM 8.8 mg/dL (8.4-10.2); GFR NON-AFRICAN AMERICAN > 60
[2018-03-27] MEDS: Acetylcysteine 20% Inhal Soln (4ml) INH SCH ×2 (07:37→19:54)
[2018-03-27] MEDS: Pantoprazole 40 mg EC Tab PO SCH (08:58)
[2018-03-27] MEDS: Fluticasone-Salmeterol 100-50mcg Diskus IH SCH ×2 (08:58→22:21)
[2018-03-27] MEDS: THEOPHYLLINE 400 MG T24(UNIPHYL) PO SCH (08:59)
[2018-03-27] MEDS: Cholecalciferol 1,000 INTLU TAB PO SCH (08:59)
[2018-03-27] MEDS: Azithromycin 500 MG in Sodium Chloride 0.9% 250 ML IVPB SCH (09:00)
[2018-03-27] MEDS: Enoxaparin 40 mg Syringe SC SCH (09:00)
--- NOTE | 2018-03-27 09:18 | CP.PCM.PN ---
Subjective - Date & Time of Evaluation Date of Evaluation: 03/27/18 Time of Evaluation: 09:19 - Subjective Subjective: FEELS BETTER COUGHLESS SOB IMPROVED Objective - Vital Signs/Intake and Output Vital Signs (last 24 hours): Temp Pulse Resp BP Pulse Ox 98.3 F 93 H 18 151/82 H 97 03/27/18 08:03 03/27/18 08:03 03/27/18 08:03 03/27/18 08:03 03/27/18 08:03 - Medications Medications: Current Medications Acetylcysteine (Acetylcysteine 20%) 2 ml INH RBID [facility] Last Admin: 03/27/18 07:37 Dose: 2 ml Albuterol/Ipratropium (Duoneb 3 Mg/0.5 Mg (3 Ml) Ud) 3 ml INH RQ4 [facility] Last Admin: 03/27/18 07:37 Dose: 3 ml Albuterol/Ipratropium (Duoneb 3 Mg/0.5 Mg (3 Ml) Ud) 3 ml INH Q2H PRN PRN Reason: Shortness of Breath Cholecalciferol (Vitamin D) 1,000 intlu PO DAILY [facility] Last Admin: 03/27/18 08:59 Dose: 1,000 intlu Darunavir (Prezista) 800 mg PO HS [facility] Last Admin: 03/26/18 22:07 Dose: 800 mg Docusate Sodium (Colace) 100 mg PO BID PRN PRN Reason: Constipation Last Admin: 03/25/18 09:24 Dose: 100 mg Docusate Sodium (Colace) 100 mg PO HS [facility] Last Admin: 03/26/18 22:12 Dose: 100 mg Dolutegravir Sodium (Tivicay) 50 mg PO DAILY [facility]; Protocol Last Admin: 03/27/18 08:58 Dose: 50 mg Emtricitabine/Tenofovir (Truvada 200 Mg-300 Mg) 1 tab PO DAILY [facility]; Protocol Last Admin: 03/22/18 18:00 Dose: 1 tab Enoxaparin Sodium (Lovenox) 40 mg SC DAILY [facility]; Protocol Last Admin: 03/27/18 09:00 Dose: 40 mg Home Med (Rilpivirine Hcl [Edurant]) 25 mg PO HS [facility] Last Admin: 03/26/18 22:12 Dose: 25 mg Azithromycin 500 mg/ Sodium (Chloride) 250 mls @ 250 mls/hr IVPB DAILY [facility]; Protocol Last Admin: 03/27/18 09:00 Dose: 250 mls/hr Lactulose (Enulose) 20 gm PO DAILY PRN PRN Reason: Constipation Last Admin: 03/25/18 22:42 Dose: 20 gm Methylprednisolone (Solu-Medrol) 60 mg IV Q12 [facility] Last Admin: 03/27/18 08:59 Dose: 60 mg Montelukast Sodium (Singulair) 10 mg PO HS [facility] Last Admin: 03/26/18 22:07 Dose: 10 mg Oxcarbazepine (Trileptal) 150 mg PO BID [facility] Last Admin: 03/27/18 09:03 Dose: Not Given Pantoprazole Sodium (Protonix Ec Tab) 40 mg PO DAILY [facility] Last Admin: 03/27/18 08:58 Dose: 40 mg Promethazine HCl/Dextromethorphan (Phenergan Dm Syrup) 10 ml PO Q6 PRN PRN Reason: Cough Last Admin: 03/25/18 18:08 Dose: 10 ml Ritonavir (Norvir) 100 mg PO HS [facility] Last Admin: 03/26/18 22:07 Dose: 100 mg Fluticasone/Salmeterol (Advair Diskus 100/50) 1 puff IH Q12 [facility] Last Admin: 03/27/18 08:58 Dose: 1 puff Theophylline (Uniphyl) 400 mg PO DAILY [facility] Last Admin: 03/27/18 08:59 Dose: 400 mg - Labs Labs: 03/26/18 04:35 03/27/18 04:25 - Constitutional Appears: No Acute Distress - Head Exam Head Exam: ATRAUMATIC, NORMAL INSPECTION, NORMOCEPHALIC - Eye Exam Eye Exam: EOMI, Normal appearance, PERRL Pupil Exam: NORMAL ACCOMODATION, PERRL - ENT Exam ENT Exam: Mucous Membranes Moist, Normal Exam - Neck Exam Neck Exam: Full ROM, Normal Inspection. absent: Lymphadenopathy - Respiratory Exam Respiratory Exam: Decreased Breath Sounds, Prolonged Expiratory Phase, Rales, Wheezes, NORMAL BREATHING PATTERN - Cardiovascular Exam Cardiovascular Exam: REGULAR RHYTHM, +S1, +S2. absent: Murmur - GI/Abdominal Exam GI & Abdominal Exam: Soft, Normal Bowel Sounds. absent: Tenderness - Rectal Exam Rectal Exam: NORMAL INSPECTION - Extremities Exam Extremities Exam: Full ROM, Normal Capillary Refill, Normal Inspection. absent: Joint Swelling, Pedal Edema - Back Exam Back Exam: NORMAL INSPECTION - Neurological Exam Neurological Exam: Alert, Awake, CN II-XII Intact, Normal Gait, Oriented x3 - Psychiatric Exam Psychiatric exam: Normal Affect, Normal Mood - Skin Skin Exam: Dry, Intact, Normal Color, Warm Assessment and Plan - Assessment and Plan (Free Text) Assessment: ACUTE ASTHMA-IMPROVING BRONCHIECTASES Plan: TAPER STEROIDS OK TO D/C IN AM IF STABLE
--- NOTE | 2018-03-27 09:37 | CP.PCM.PN ---
<Patricia Camerona - Last Filed: 03/27/18 12:11> Subjective - Date & Time of Evaluation Date of Evaluation: 03/27/18 Time of Evaluation: 09:00 - Subjective Subjective: Pt seen/evaluated at bedside; no acute events overnight. Cough mildly improved, still wearing NC. Otherwise stable, no chest pain, no abdominal pain, no calf pain/swelling. Objective - Vital Signs/Intake and Output Vital Signs (last 24 hours): Temp Pulse Resp BP Pulse Ox 98.3 F 93 H 18 151/82 H 97 03/27/18 08:03 03/27/18 08:03 03/27/18 08:03 03/27/18 08:03 03/27/18 08:03 - Medications Medications: Current Medications Acetylcysteine (Acetylcysteine 20%) 2 ml INH RBID [facility] Last Admin: 03/27/18 07:37 Dose: 2 ml Albuterol/Ipratropium (Duoneb 3 Mg/0.5 Mg (3 Ml) Ud) 3 ml INH RQ4 [facility] Last Admin: 03/27/18 07:37 Dose: 3 ml Albuterol/Ipratropium (Duoneb 3 Mg/0.5 Mg (3 Ml) Ud) 3 ml INH Q2H PRN PRN Reason: Shortness of Breath Cholecalciferol (Vitamin D) 1,000 intlu PO DAILY [facility] Last Admin: 03/27/18 08:59 Dose: 1,000 intlu Darunavir (Prezista) 800 mg PO HS [facility] Last Admin: 03/26/18 22:07 Dose: 800 mg Docusate Sodium (Colace) 100 mg PO BID PRN PRN Reason: Constipation Last Admin: 03/25/18 09:24 Dose: 100 mg Docusate Sodium (Colace) 100 mg PO HS [facility] Last Admin: 03/26/18 22:12 Dose: 100 mg Dolutegravir Sodium (Tivicay) 50 mg PO DAILY [facility]; Protocol Last Admin: 03/27/18 08:58 Dose: 50 mg Emtricitabine/Tenofovir (Truvada 200 Mg-300 Mg) 1 tab PO DAILY [facility]; Protocol Last Admin: 03/22/18 18:00 Dose: 1 tab Enoxaparin Sodium (Lovenox) 40 mg SC DAILY [facility]; Protocol Last Admin: 03/27/18 09:00 Dose: 40 mg Home Med (Rilpivirine Hcl [Edurant]) 25 mg PO HS [facility] Last Admin: 03/26/18 22:12 Dose: 25 mg Azithromycin 500 mg/ Sodium (Chloride) 250 mls @ 250 mls/hr IVPB DAILY [facility]; Protocol Last Admin: 03/27/18 09:00 Dose: 250 mls/hr Lactulose (Enulose) 20 gm PO DAILY PRN PRN Reason: Constipation Last Admin: 03/25/18 22:42 Dose: 20 gm Methylprednisolone (Solu-Medrol) 40 mg IV DAILY [facility] Montelukast Sodium (Singulair) 10 mg PO HS [facility] Last Admin: 03/26/18 22:07 Dose: 10 mg Oxcarbazepine (Trileptal) 150 mg PO BID [facility] Last Admin: 03/27/18 09:03 Dose: Not Given Pantoprazole Sodium (Protonix Ec Tab) 40 mg PO DAILY [facility] Last Admin: 03/27/18 08:58 Dose: 40 mg Promethazine HCl/Dextromethorphan (Phenergan Dm Syrup) 10 ml PO Q6 PRN PRN Reason: Cough Last Admin: 03/25/18 18:08 Dose: 10 ml Ritonavir (Norvir) 100 mg PO HS [facility] Last Admin: 03/26/18 22:07 Dose: 100 mg Fluticasone/Salmeterol (Advair Diskus 100/50) 1 puff IH Q12 [facility] Last Admin: 03/27/18 08:58 Dose: 1 puff Theophylline (Uniphyl) 400 mg PO DAILY [facility] Last Admin: 03/27/18 08:59 Dose: 400 mg - Labs Labs: 03/26/18 04:35 03/27/18 04:25 Assessment and Plan - Assessment and Plan (Free Text) Assessment: 57 yo F with past medical history of moderate persistent asthma, HIV, trigeminal neuralgia, dyslipidemia, anemia admitted for acute asthma exacerbation of asthma. Improving today, less cough. Plan: Acute Asthma Exacerbation - CXR: no active disease - Pulm: Dr. Yee on board, sees pt outpt as well, recs appreciated - added theophylline, acetylcysteine, promethazine, rec taper steroids and planned d/c Wednesday 03/28 if stable - Repeat ABG yesterday - within normal limits - Duonebs RQ4 [facility], Q2H PRN - Sodium Chloride 4ml INH PRN - Methylprednisone 40mg IV daily - Home med: Fluticasone/Vilanterol - Montelukast 10 mg qhs - Theophylline 400 mg PO daily - Promethazine 10 ml PO Q6H - Acetylcysteine 20%, 2ml INH BID - Supplemental O2 via NC PRN, maintain POX ~94% Upper Respiratory Infection - Azithromycin 500 mg IVPB daily; today is day 4 Hypokalemia - Resolved, K 3.9 today - Was 3.5, repleted Leukocytosis - Resolved, WBC 8.4 - Was 12.4 on admission Dehydration - Resolved, improved with hydration; BUN/Cr 13/0.9 today - BUN/CR: 22/1.4 on presentation Asymptomatic HIV - On HAART - CD4: 347 01/22/2018 - %CD4: 16 - Continue home meds: Dolutegravir, Emtricitabine/Tenofovir Trigeminal Neuralgia - Oxcarbazepine 150 mg PO BID Diet - Regular diet DVT Prophylaxis - Lovenox 40 mg SC QD <Lokesh Prado D - Last Filed: 03/27/18 13:43> Objective - Vital Signs/Intake and Output Vital Signs (last 24 hours): Temp Pulse Resp BP Pulse Ox 98.1 F 106 H 18 118/73 95 03/27/18 11:52 03/27/18 11:52 03/27/18 11:52 03/27/18 11:52 03/27/18 11:52 - Medications Medications: Current Medications Acetylcysteine (Acetylcysteine 20%) 2 ml INH RBID [facility] Last Admin: 03/27/18 07:37 Dose: 2 ml Albuterol/Ipratropium (Duoneb 3 Mg/0.5 Mg (3 Ml) Ud) 3 ml INH RQ4 [facility] Last Admin: 03/27/18 11:37 Dose: 3 ml Albuterol/Ipratropium (Duoneb 3 Mg/0.5 Mg (3 Ml) Ud) 3 ml INH Q2H PRN PRN Reason: Shortness of Breath Cholecalciferol (Vitamin D) 1,000 intlu PO DAILY [facility] Last Admin: 03/27/18 08:59 Dose: 1,000 intlu Darunavir (Prezista) 800 mg PO HS [facility] Last Admin: 03/26/18 22:07 Dose: 800 mg Docusate Sodium (Colace) 100 mg PO BID PRN PRN Reason: Constipation Last Admin: 03/25/18 09:24 Dose: 100 mg Docusate Sodium (Colace) 100 mg PO HS [facility] Last Admin: 03/26/18 22:12 Dose: 100 mg Dolutegravir Sodium (Tivicay) 50 mg PO DAILY [facility]; Protocol Last Admin: 03/27/18 08:58 Dose: 50 mg Emtricitabine/Tenofovir (Truvada 200 Mg-300 Mg) 1 tab PO DAILY [facility]; Protocol Last Admin: 03/22/18 18:00 Dose: 1 tab Enoxaparin Sodium (Lovenox) 40 mg SC DAILY [facility]; Protocol Last Admin: 03/27/18 09:00 Dose: 40 mg Home Med (Rilpivirine Hcl [Edurant]) 25 mg PO HS [facility] Last Admin: 03/26/18 22:12 Dose: 25 mg Azithromycin 500 mg/ Sodium (Chloride) 250 mls @ 250 mls/hr IVPB DAILY [facility]; Protocol Last Admin: 03/27/18 09:00 Dose: 250 mls/hr Lactulose (Enulose) 20 gm PO DAILY PRN PRN Reason: Constipation Last Admin: 03/25/18 22:42 Dose: 20 gm Methylprednisolone (Solu-Medrol) 40 mg IV DAILY [facility] Montelukast Sodium (Singulair) 10 mg PO HS [facility] Last Admin: 03/26/18 22:07 Dose: 10 mg Oxcarbazepine (Trileptal) 150 mg PO BID [facility] Last Admin: 03/27/18 09:03 Dose: Not Given Pantoprazole Sodium (Protonix Ec Tab) 40 mg PO DAILY [facility] Last Admin: 03/27/18 08:58 Dose: 40 mg Promethazine HCl/Dextromethorphan (Phenergan Dm Syrup) 10 ml PO Q6 PRN PRN Reason: Cough Last Admin: 03/25/18 18:08 Dose: 10 ml Ritonavir (Norvir) 100 mg PO HS [facility] Last Admin: 03/26/18 22:07 Dose: 100 mg Fluticasone/Salmeterol (Advair Diskus 100/50) 1 puff IH Q12 [facility] Last Admin: 03/27/18 08:58 Dose: 1 puff Theophylline (Uniphyl) 400 mg PO DAILY [facility] Last Admin: 03/27/18 08:59 Dose: 400 mg - Labs Labs: 03/26/18 04:35 03/27/18 04:25 Attending/Attestation - Attestation I have personally seen and examined this patient.: Yes I have fully participated in the care of the patient.: Yes I have reviewed all pertinent clinical information, including history, physical exam and plan: Yes Notes (Text): 03/27/18 13:42 Patient seen and examined with resident. Case discussed and agreed with assessment and plan of management. Patient felt better although still with some wheezing. For possible discharge tomorrow.
[2018-03-27] MEDS: RILPIVIRINE HCL 25 MG PO SCH (22:20)
[2018-03-28] MEDS: Albuterol-Ipratrop 3 mg / 0.5 (3 ml) UD INH SCH ×3 (04:57→11:32)
[2018-03-28] MEDS: Promethazine DM 12.5 mg-30 mg/10 ml Syrup PO PRN (05:16)
[2018-03-28] MEDS ORDERED: Influenza Vaccine (5 YR UP)/PF 60 MCG/0.5 ML SYR IM ONE (06:00)
[2018-03-28 06:43] VITALS: TEMP 97.9
[2018-03-28] MEDS: Acetylcysteine 20% Inhal Soln (4ml) INH SCH (07:51)
[2018-03-28 07:57] VITALS: RESP 18
[2018-03-28] MEDS ORDERED: MethylPREDNISolone 40 mg Vial IV SCH (09:00)
--- NOTE | 2018-03-28 09:30 | CP.PCM.DIS ---
<Prudencio Patel - Last Filed: 03/28/18 14:13> Provider - Provider Date of Admission: 03/24/18 14:47 Attending physician: Lokesh Prado MD Time Spent in preparation of Discharge (in minutes): 35 Hospital Course - Lab Results Lab Results: Most Recent Lab Values WBC 8.4 K/uL (4.8-10.8) 03/26/18 04:35 RBC 3.48 Mil/uL (3.80-5.20) L 03/26/18 04:35 Hgb 10.1 g/dL (12.0-16.0) L 03/26/18 04:35 Hct 31.2 % (34.0-47.0) L 03/26/18 04:35 MCV 89.7 fl (81.0-99.0) 03/26/18 04:35 MCH 29.1 pg (27.0-31.0) 03/26/18 04:35 MCHC 32.5 g/dL (33.0-37.0) L 03/26/18 04:35 RDW 14.1 % (11.5-14.5) 03/26/18 04:35 Plt Count 384 K/uL (130-400) 03/26/18 04:35 MPV 7.3 fl (7.2-11.7) 03/23/18 05:30 Neut % (Auto) 86.7 % (50.0-75.0) H 03/23/18 05:30 Lymph % (Auto) 9.9 % (20.0-40.0) L 03/23/18 05:30 Woodruff % (Auto) 3.3 % (0.0-10.0) 03/23/18 05:30 Eos % (Auto) 0.0 % (0.0-4.0) 03/23/18 05:30 Baso % (Auto) 0.1 % (0.0-2.0) 03/23/18 05:30 Neut # (Auto) 10.4 K/uL (1.8-7.0) H 03/23/18 05:30 Lymph # (Auto) 1.2 K/uL (1.0-4.3) 03/23/18 05:30 Woodruff # (Auto) 0.4 K/uL (0.0-0.8) 03/23/18 05:30 Eos # (Auto) 0.0 K/uL (0.0-0.7) 03/23/18 05:30 Baso # (Auto) 0.0 K/uL (0.0-0.2) 03/23/18 05:30 Neutrophils % (Manual) 84 % (42-75) H 03/23/18 05:30 Band Neutrophils % 2 % (0-2) 03/23/18 05:30 Lymphocytes % (Manual) 9 % (20-50) L 03/23/18 05:30 Monocytes % (Manual) 5 % (0-10) 03/23/18 05:30 Platelet Estimate Normal (NORMAL) 03/23/18 05:30 Hypochromasia (manual) Slight 03/23/18 05:30 pCO2 42 mm/Hg (35-45) 03/26/18 11:05 pO2 85 mm/Hg (80-100) 03/26/18 11:05 HCO3 26.8 mmol/L (21-28) 03/26/18 11:05 ABG pH 7.42 (7.35-7.45) 03/26/18 11:05 ABG Total CO2 28.5 mmol/L (22-28) H 03/26/18 11:05 ABG O2 Saturation 97.4 % (95-98) 03/26/18 11:05 ABG O2 Content 15.6 ML/dL (15-23) 03/26/18 11:05 ABG Base Excess 2.4 mmol/L (-2.0-3.0) 03/26/18 11:05 ABG Hemoglobin 11.6 g/dL (11.7-17.4) L 03/26/18 11:05 ABG Carboxyhemoglobin 1.3 % (0.5-1.5) 03/26/18 11:05 POC ABG HHb (Measured) 2.5 % (0.0-5.0) 03/26/18 11:05 ABG Methemoglobin 1.5 % (0.0-3.0) 03/26/18 11:05 ABG O2 Capacity 16.0 mL/dL (16-24) 03/26/18 11:05 Darryl Test Yes 03/26/18 11:05 A-a O2 Difference 62.0 mm/Hg 03/26/18 11:05 Hgb O2 Saturation 94.8 % (95.0-98.0) L 03/26/18 11:05 FiO2 28.0 % 03/26/18 11:05 Sodium 137 mmol/l (132-148) 03/27/18 04:25 Potassium 3.9 MMOL/L (3.6-5.0) 03/27/18 04:25 Chloride 101 mmol/L (98-107) 03/27/18 04:25 Carbon Dioxide 28 mmol/L (22-30) 03/27/18 04:25 Anion Gap 12 (10-20) 03/27/18 04:25 BUN 17 mg/dl (7-17) 03/27/18 04:25 Creatinine 0.9 mg/dl (0.7-1.2) 03/27/18 04:25 Est GFR ( Amer) > 60 03/27/18 04:25 Est GFR (Non-Af Amer) > 60 03/27/18 04:25 Random Glucose 169 mg/dL (65-105) H 03/27/18 04:25 Calcium 8.8 mg/dL (8.4-10.2) 03/27/18 04:25 Total Bilirubin 0.3 mg/dl (0.2-1.3) 03/24/18 04:20 AST 21 U/L (14-36) 03/24/18 04:20 ALT 24 U/L (9-52) 03/24/18 04:20 Alkaline Phosphatase 85 U/L (38-126) 03/24/18 04:20 Total Protein 7.8 G/DL (6.3-8.2) 03/24/18 04:20 Albumin 3.7 g/dL (3.5-5.0) 03/24/18 04:20 Globulin 4.1 gm/dL (2.2-3.9) H 03/24/18 04:20 Albumin/Globulin Ratio 0.9 (1.0-2.1) L 03/24/18 04:20 - Hospital Course Hospital Course: 57 yo F with past medical history of moderate persistent asthma, HIV, trigeminal neuralgia, dyslipidemia, anemia admitted for acute asthma exacerbation of asthma. Pt remained in the hospital for 5 days for which she was treated with scheduled bronchodilator treatments, IV steroids, Azithromycin (5 days) Monteleukast, Theophylline, Promethazine, and Acetylcysteine. Dr. Cartagena was consulted and involved in her care. Her respiratory status improved to her baseline and she was cleared by Dr. Yee for discharge home with follow up in his office. Pt was discharged home on her home asthma medications and a 5 day steroid taper. Discharge Exam - Head Exam Head Exam: ATRAUMATIC, NORMAL INSPECTION, NORMOCEPHALIC - Eye Exam Eye Exam: Normal appearance - ENT Exam ENT Exam: Mucous Membranes Moist - Respiratory Exam Respiratory Exam: Rales (scattered), Rhonchi, Wheezes. absent: Accessory Muscle Use, Respiratory Distress, Stridor - Cardiovascular Exam Cardiovascular Exam: REGULAR RHYTHM, +S1, +S2 - GI/Abdominal Exam GI & Abdominal Exam: Normal Bowel Sounds, Soft. absent: Tenderness - Extremities Exam Extremities exam: normal capillary refill, normal inspection, pedal pulses present - Neurological Exam Neurological exam: Alert, Oriented x3 - Psychiatric Exam Psychiatric exam: Normal Affect - Skin Skin Exam: Normal Color Discharge Plan - Discharge Medications Prescriptions: Methylprednisolone [Medrol Dose Pack (21 tabs)] 4 mg PO ASDIR #21 mg - Follow Up Plan Condition: FAIR Disposition: HOME/ ROUTINE Instructions: Asthma, Adult (DC), Asthma (DC) Additional Instructions: follow up with pmd 1 week Referrals: Kira Boyer MD [Family Provider] - Alen Yee MD [Staff Provider] - <Lokesh Prado - Last Filed: 03/28/18 16:27> Provider - Provider Date of Admission: 03/24/18 14:47 Attending physician: Lokesh Prado MD Hospital Course - Lab Results Lab Results: Most Recent Lab Values WBC 8.4 K/uL (4.8-10.8) 03/26/18 04:35 RBC 3.48 Mil/uL (3.80-5.20) L 03/26/18 04:35 Hgb 10.1 g/dL (12.0-16.0) L 03/26/18 04:35 Hct 31.2 % (34.0-47.0) L 03/26/18 04:35 MCV 89.7 fl (81.0-99.0) 03/26/18 04:35 MCH 29.1 pg (27.0-31.0) 03/26/18 04:35 MCHC 32.5 g/dL (33.0-37.0) L 03/26/18 04:35 RDW 14.1 % (11.5-14.5) 03/26/18 04:35 Plt Count 384 K/uL (130-400) 03/26/18 04:35 MPV 7.3 fl (7.2-11.7) 03/23/18 05:30 Neut % (Auto) 86.7 % (50.0-75.0) H 03/23/18 05:30 Lymph % (Auto) 9.9 % (20.0-40.0) L 03/23/18 05:30 [place] % (Auto) 3.3 % (0.0-10.0) 03/23/18 05:30 Eos % (Auto) 0.0 % (0.0-4.0) 03/23/18 05:30 Baso % (Auto) 0.1 % (0.0-2.0) 03/23/18 05:30 Neut # (Auto) 10.4 K/uL (1.8-7.0) H 03/23/18 05:30 Lymph # (Auto) 1.2 K/uL (1.0-4.3) 03/23/18 05:30 [place] # (Auto) 0.4 K/uL (0.0-0.8) 03/23/18 05:30 Eos # (Auto) 0.0 K/uL (0.0-0.7) 03/23/18 05:30 Baso # (Auto) 0.0 K/uL (0.0-0.2) 03/23/18 05:30 Neutrophils % (Manual) 84 % (42-75) H 03/23/18 05:30 Band Neutrophils % 2 % (0-2) 03/23/18 05:30 Lymphocytes % (Manual) 9 % (20-50) L 03/23/18 05:30 Monocytes % (Manual) 5 % (0-10) 03/23/18 05:30 Platelet Estimate Normal (NORMAL) 03/23/18 05:30 Hypochromasia (manual) Slight 03/23/18 05:30 pCO2 42 mm/Hg (35-45) 03/26/18 11:05 pO2 85 mm/Hg (80-100) 03/26/18 11:05 HCO3 26.8 mmol/L (21-28) 03/26/18 11:05 ABG pH 7.42 (7.35-7.45) 03/26/18 11:05 ABG Total CO2 28.5 mmol/L (22-28) H 03/26/18 11:05 ABG O2 Saturation 97.4 % (95-98) 03/26/18 11:05 ABG O2 Content 15.6 ML/dL (15-23) 03/26/18 11:05 ABG Base Excess 2.4 mmol/L (-2.0-3.0) 03/26/18 11:05 ABG Hemoglobin 11.6 g/dL (11.7-17.4) L 03/26/18 11:05 ABG Carboxyhemoglobin 1.3 % (0.5-1.5) 03/26/18 11:05 POC ABG HHb (Measured) 2.5 % (0.0-5.0) 03/26/18 11:05 ABG Methemoglobin 1.5 % (0.0-3.0) 03/26/18 11:05 ABG O2 Capacity 16.0 mL/dL (16-24) 03/26/18 11:05 Darryl Test Yes 03/26/18 11:05 A-a O2 Difference 62.0 mm/Hg 03/26/18 11:05 Hgb O2 Saturation 94.8 % (95.0-98.0) L 03/26/18 11:05 FiO2 28.0 % 03/26/18 11:05 Sodium 137 mmol/l (132-148) 03/27/18 04:25 Potassium 3.9 MMOL/L (3.6-5.0) 03/27/18 04:25 Chloride 101 mmol/L (98-107) 03/27/18 04:25 Carbon Dioxide 28 mmol/L (22-30) 03/27/18 04:25 Anion Gap 12 (10-20) 03/27/18 04:25 BUN 17 mg/dl (7-17) 03/27/18 04:25 Creatinine 0.9 mg/dl (0.7-1.2) 03/27/18 04:25 Est GFR ( Amer) > 60 03/27/18 04:25 Est GFR (Non-Af Amer) > 60 03/27/18 04:25 Random Glucose 169 mg/dL (65-105) H 03/27/18 04:25 Calcium 8.8 mg/dL (8.4-10.2) 03/27/18 04:25 Total Bilirubin 0.3 mg/dl (0.2-1.3) 03/24/18 04:20 AST 21 U/L (14-36) 03/24/18 04:20 ALT 24 U/L (9-52) 03/24/18 04:20 Alkaline Phosphatase 85 U/L (38-126) 03/24/18 04:20 Total Protein 7.8 G/DL (6.3-8.2) 03/24/18 04:20 Albumin 3.7 g/dL (3.5-5.0) 03/24/18 04:20 Globulin 4.1 gm/dL (2.2-3.9) H 03/24/18 04:20 Albumin/Globulin Ratio 0.9 (1.0-2.1) L 03/24/18 04:20 Attending/Attestation - Attestation I have personally seen and examined this patient.: Yes I have fully participated in the care of the patient.: Yes I have reviewed all pertinent clinical information, including history, physical exam and plan: Yes Notes (Text): 03/28/18 16:25 Patient seen and examined with resident. Case was discussed and agreed with assessment. Patient admitted feeling and was discharged in stable condition. Pulmonary consult was notified and agreed with discharge.
[2018-03-28] MEDS: Azithromycin 500 MG in Sodium Chloride 0.9% 250 ML IVPB SCH (09:43)
[2018-03-28] MEDS: Fluticasone-Salmeterol 100-50mcg Diskus IH SCH (09:43)
[2018-03-28] MEDS: THEOPHYLLINE 400 MG T24(UNIPHYL) PO SCH (09:45)
[2018-03-28] MEDS: Pantoprazole 40 mg EC Tab PO SCH (09:45)
[2018-03-28] MEDS: Cholecalciferol 1,000 INTLU TAB PO SCH (09:45)
[2018-03-28] MEDS: Enoxaparin 40 mg Syringe SC SCH (09:46)
[2018-03-28 12:14] VITALS: BP 134/79; PULSE 97; O2SAT 97
== END 2018-03-28 15:20 | disposition home or self-care (01) | DRG 202 ==
LOC: H.ER 09:16 → H.ERHOLD 11:38 → H.TEL 13:10 → OBSVTOIN 03-24 14:47
DX: J45.41 Moderate persistent asthma with (acute) exacerbation (principal); B20 Human immunodeficiency virus [HIV] disease; T17.890A Other foreign object in other parts of respiratory tract causing asphyxiation, initial encounter; D64.9 Anemia, unspecified; J44.9 Chronic obstructive pulmonary disease, unspecified; Z90.49 Acquired absence of other specified parts of digestive tract; E78.5 Hyperlipidemia, unspecified; J06.9 Acute upper respiratory infection, unspecified; G50.0 Trigeminal neuralgia; E86.0 Dehydration; E87.6 Hypokalemia; D72.829 Elevated white blood cell count, unspecified; Z87.01 Personal history of pneumonia (recurrent)

== ENCOUNTER 2018-06-04 10:15 | Inpatient (IN) | payer MEDICARE ==
[2018-06-04 10:25] VITALS: BMI 31.8
[2018-06-04] MEDS ORDERED: Albuterol-Ipratrop 3 mg / 0.5 (3 ml) UD INH STA ×2 (11:25→13:18)
[2018-06-04] MEDS ORDERED: Albuterol-Ipratrop 3 mg / 0.5 (3 ml) UD ONE ×2 (12:03→13:39)
--- NOTE | 2018-06-04 13:09 | RAD ---
Date of service: 06/04/2018 HISTORY: Cough. COMPARISON: No prior. TECHNIQUE: Chest PA and lateral FINDINGS: LUNGS: There appears to be some minor bibasilar atelectasis and/or scarring. PLEURA: No significant pleural effusion identified. No pneumothorax apparent. CARDIOVASCULAR: Mild aortic atherosclerotic calcification present. Normal cardiac size. No pulmonary vascular congestion. OSSEOUS STRUCTURES: No significant abnormalities. VISUALIZED UPPER ABDOMEN: Cholecystectomy clips present. OTHER FINDINGS: None. IMPRESSION: Minor bibasilar atelectasis or scarring.
[2018-06-04] MEDS: Sodium Chloride 0.9% 1,000 ML IV SCH ×2 (13:41→23:30)
--- NOTE | 2018-06-04 13:46 | ED PDOC ---
HPI: SOB/CHF/COPD Time Seen by Provider: 06/04/18 10:45 Chief Complaint (Nursing): Respiratory Distress Chief Complaint (Provider): cough, sob History Per: Patient History/Exam Limitations: no limitations Onset/Duration Of Symptoms: Days (started yesterday) Current Symptoms Are (Timing): Still Present Initiating Event: Upper Respiratory Illness Associated Symptoms: Chills. denies: Fever Additional Complaint(s): Pt. with history of HIV and asthma reports to ED with sob, cough and wheeze starting yesterday despite nebulizer treatments at home. Pt. denies fever, chills. Pt. reports supplemental O2 at home (2L nasal cannula) prn dyspnea. Past Medical History Vital Signs: Last Vital Signs Temp 100.2 F H 06/04/18 10:27 Pulse 107 H 06/04/18 10:27 Resp 18 06/04/18 10:55 BP 104/68 06/04/18 10:27 Pulse Ox 98 06/04/18 10:27 - Medical History PMH: Anemia, Asthma, Bronchitis, COPD, HIV, Pneumonia Denies: Arthritis, CHF, HTN, Hypercholesterolemia, Hypothyroidism, Chronic Kidney Disease, Rheumatoid Arthritis - Surgical History Surgical History: Cholecystectomy - Family History Family History: States: Unknown Family Hx - Home Medications Home Medications: Ambulatory Orders Medication Instructions Recorded Albuterol 0.083% [Albuterol 0.083% 3 ml IH Q8H PRN 05/23/16 Inhal Lily (2.5 mg/3 ml) UD] Albuterol HFA [Ventolin HFA 90 2 puff IH Q4H PRN 05/23/16 mcg/actuation (8 g)] Dolutegravir Sodium [Tivicay] 50 mg PO DAILY 05/23/16 Emtricitabine/Tenofovir (Tdf) 1 tab PO DAILY 05/23/16 [Truvada 200 mg-300 mg Tablet] Ferrous Sulfate [Feosol] 325 mg PO DAILY 05/23/16 Montelukast [Singulair] 10 mg PO HS 05/23/16 Cholecalciferol [Vitamin D 1000 IU] 1,000 unit PO DAILY 10/26/16 Docusate [Colace] 100 mg PO HS 10/26/16 Fluticasone/Vilanterol [Breo 1 puff IH DAILY 10/26/16 Ellipta 100-25 Mcg INH] Oxcarbazepine [Trileptal] 150 mg PO BID 10/26/16 Roflumilast [Daliresp] 500 mcg PO DAILY 10/26/16 Promethazine/Codeine 10 ml PO Q6 PRN #1 udc 10/31/16 [Phenergan/Codeine Oral Syrup] Montelukast [Singulair] 10 mg PO HS tab 04/15/17 Sulfamethoxazole/Trimethoprim 1 tab PO HS tab 04/15/17 [Bactrim DS Tab] Darunavir [Prezista] 800 mg PO HS 03/22/18 Rilpivirine HCl [Edurant] 25 mg PO HS 03/22/18 Ritonavir [Norvir] 100 mg PO HS 03/22/18 Cholecalciferol [Vitamin D 1000 IU] 1,000 intlu PO DAILY tab 03/28/18 Darunavir [Prezista] 800 mg PO HS tab 03/28/18 Methylprednisolone [Medrol Dose 4 mg PO ASDIR #21 mg 03/28/18 Pack (21 tabs)] - Allergies Allergies/Adverse Reactions: Allergies Allergy/AdvReac Type Severity Reaction Status Date / Time procaine HCl [From Novocain] Allergy RASH Verified 06/04/18 10:58 shrimp Allergy RASH Verified 06/04/18 10:58 Review of Systems Constitutional: Positive for: Chills Cardiovascular: Negative for: Chest Pain Respiratory: Positive for: Cough, Shortness of Breath, Wheezing Gastrointestinal: Negative for: Abdominal Pain Physical Exam - Reviewed Nursing Documentation Reviewed: Yes Vital Signs Reviewed: Yes - Physical Exam Appears: Positive for: Well, Non-toxic, No Acute Distress Head Exam: Positive for: ATRAUMATIC Skin: Positive for: Normal Color, Warm, Dry ENT: Positive for: Normal ENT Inspection. Negative for: Pharyngeal Erythema, Tonsillar Swelling Neck: Positive for: Normal Cardiovascular/Chest: Positive for: Regular Rate, Rhythm Respiratory: Positive for: Crackles, Wheezing - ECG O2 Sat by Pulse Oximetry: 98 Medical Decision Making Medical Decision Making: Duonebs x 3 Prednisone po given. CXR: no infiltrate; as read by me. Flu A positive. Tamiflu po given. Reassessment after nebs, pt. still with diffuse wheeze and mild dyspnea, pulse ox: 95% onRA, 98% on 2L nasal cannula. Case d/w Dr. Prado, hospitalist and arrangements made for admission. Pt. updated and comfortable with plan. Disposition - Clinical Impression Clinical Impression: Dyspnea, Influenza A, Asthma - Patient ED Disposition Is Patient to be Admitted: Yes Doctor Will See Patient In The: Hospital Counseled Patient/Family Regarding: Studies Performed, Diagnosis - Disposition Disposition Time: 13:57 Condition: STABLE Forms: [employer] ([employer])
[2018-06-04 13:52] LABS: BASO % 0.6 % (0.0-2.0); EOS % 0.1 % (0.0-4.0); HEMOGLOBIN 11.6 g/dL (12.0-16.0); LYMPH # 1.7 K/uL (1.0-4.3); LYMPH % 29.7 % (20.0-40.0); MEAN CELL VOLUME 88.5 fl (81.0-99.0); MEAN CORPUSCULAR HEMOGLOBIN 29.7 pg (27.0-31.0); MEAN CORPUSCULAR HGB CONC 33.6 g/dL (33.0-37.0); MEAN PLATELET VOLUME 6.9 fl (7.2-11.7); MONO # 0.8 K/uL (0.0-0.8); MONO % 13.9 % (0.0-10.0); NEUT # 3.2 K/uL (1.8-7.0); NEUT % 55.7 % (50.0-75.0); NRBC % 0.1 % (0.0-0.0); RBC 3.89 Mil/uL (3.80-5.20); RED CELL DISTRIBUTION WIDTH 15.2 % (11.5-14.5); WHITE BLOOD COUNT 5.8 K/uL (4.8-10.8)
[2018-06-04] MEDS ORDERED: methylPREDNISolone 125 MG in Sodium Chloride 0.9% 50 ML IVPB STA ×2 (14:16→17:02)
[2018-06-04 14:23] LABS: ALBUMIN 4.1 g/dL (3.5-5.0); CALCIUM 8.8 mg/dL (8.4-10.2)
--- NOTE | 2018-06-04 14:24 | CP.PCM.HP ---
<Mireya Maldonado - Last Filed: 06/04/18 15:04> History of Present Illness - History of Present Illness History of Present Illness: 57 yo f with history of HIV and severe persistent asthma presented to the ED with SOB, non-productive cough and wheezing that started 3 days ago. She started having myalgias and headaches associated with chills 3 days prior to admission and reports she did not have any fevers at home. Pt is on supplemental O2 at home (2L) nasal cannula prn dyspnea. Patient follows at [facility]. Denies chest pain, nausea, or vomiting. PMH: Anemia, asthma, bronchitis, COPD, HIV, Pneumonia. Last hospitalization was 03/2018 for asthma exacerbation. PMD: Dr. Boyer, [facility]m: Dr. Yee; last visit 2 months ago. Famhx: DM, Asthma, COPD, Breast cancer Surg: , cholecystectomy, L aidan oophrectomy, PID Soc: Denies smoking, alcohol, illicit drugs Allergies: Lidocaine ED course: T: 100.2F ; HR: 107 ; RR: 18 ; BP: 104/68 ; O2 saturation 98% on 2L NC Physical exam: Respiratory: Crackles and Wheezing Duonebs x 3; Prednisone 60mg x1; Tamiflu 75mg po given once CXR: preliminary reading- no infiltrate. Flu A positive. Present on Admission - Present on Admission Any Indicators Present on Admission: No History of DVT/PE: No History of Uncontrolled Diabetes: No Review of Systems - Constitutional Constitutional: Chills, Fatigue, Malaise. absent: Fever - Cardiovascular Cardiovascular: Dyspnea. absent: Chest Pain, Chest Pain at Rest, Chest Pain with Activity, Diaphoresis, Palpitations - Respiratory Respiratory: Dyspnea, Dyspnea on Exertion, Wheezing Past Patient History - Infectious Disease Hx of Infectious Diseases: None - Past Medical History & Family History Past Medical History?: Yes - Past Social History Smoking Status: Never Smoked - CARDIAC Hx Congestive Heart Failure: No Hx Hypercholesterolemia: No Hx Hypertension: No - PULMONARY Hx Asthma: Yes Hx Bronchitis: Yes Hx Chronic Obstructive Pulmonary Disease (COPD): Yes Hx Pneumonia: Yes - NEUROLOGICAL Hx Neurological Disorder: No (trigeminal neuralgia) Other/Comment: Diaz's Palsy - HEENT Hx HEENT Problems: No - RENAL Hx Chronic Kidney Disease: No - ENDOCRINE/METABOLIC Hx Hypothyroidism: No - HEMATOLOGICAL/ONCOLOGICAL Hx Anemia: Yes Hx Human Immunodeficiency Virus (HIV): Yes - INTEGUMENTARY Hx Dermatological Problems: Yes Hx Eczema: Yes Other/Comment: SKIN DISCOLORATION BOTH ARM - MUSCULOSKELETAL/RHEUMATOLOGICAL Hx Arthritis: No Hx Rheumatoid Arthritis: No - GASTROINTESTINAL Hx Gastrointestinal Disorders: No - GENITOURINARY/GYNECOLOGICAL Hx Genitourinary Disorders: No - PSYCHIATRIC Hx Psychophysiologic Disorder: No Hx Substance Use: No - SURGICAL HISTORY Hx Cholecystectomy: Yes - ANESTHESIA Hx Anesthesia: Yes Hx Anesthesia Reactions: No Hx Malignant Hyperthermia: No Meds Allergies/Adverse Reactions: Allergies Allergy/AdvReac Type Severity Reaction Status Date / Time procaine HCl [From Novocain] Allergy RASH Verified 06/04/18 10:58 shrimp Allergy RASH Verified 06/04/18 10:58 Physical Exam - Constitutional Appears: Non-toxic, In Acute Distress, Chronically Ill - Head Exam Head Exam: NORMAL INSPECTION - Eye Exam Eye Exam: Normal appearance - ENT Exam ENT Exam: Mucous Membranes Moist - Respiratory Exam Respiratory Exam: Wheezes (Globally wheezing), Respiratory Distress (mild respiratory distress). absent: Accessory Muscle Use, Chest Wall Tenderness, Decreased Breath Sounds, Rales, Rhonchi - Cardiovascular Exam Cardiovascular Exam: REGULAR RHYTHM, +S1, +S2. absent: Clicks, Gallop - GI/Abdominal Exam GI & Abdominal Exam: Normal Bowel Sounds, Soft. absent: Distended, Firm, Rebound, Rigid, Tenderness - Extremities Exam Extremities exam: Positive for: normal capillary refill, normal inspection, pedal pulses present. Negative for: calf tenderness, pedal edema, tenderness - Neurological Exam Neurological exam: Alert, Oriented x3 - Skin Skin Exam: Dry, Intact, Normal Color, Warm Results - Vital Signs Recent Vital Signs: Last Vital Signs Temp 100.3 F H 06/04/18 14:05 Pulse 90 06/04/18 14:05 Resp 28 H 06/04/18 14:05 BP 88/60 L 06/04/18 14:05 Pulse Ox 98 06/04/18 14:05 - Labs Result Diagrams: 06/04/18 13:38 06/04/18 13:38 Labs: Laboratory Results - last 24 hr 06/04/18 06/04/18 06/04/18 11:55 13:38 13:38 WBC 5.8 RBC 3.89 Hgb 11.6 L Hct 34.5 MCV 88.5 MCH 29.7 MCHC 33.6 RDW 15.2 H Plt Count 240 MPV 6.9 L Neut % (Auto) 55.7 Lymph % (Auto) 29.7 [place] % (Auto) 13.9 H Eos % (Auto) 0.1 Baso % (Auto) 0.6 Neut # (Auto) 3.2 Lymph # (Auto) 1.7 [place] # (Auto) 0.8 Eos # (Auto) 0.0 Baso # (Auto) 0.0 Total Protein 8.4 H Influenza Typ A,B (EIA) Pos for influenza a H Assessment & Plan (1) Asthma Status: Acute (2) Influenza A Status: Acute (3) DVT prophylaxis Status: Chronic - Assessment and Plan (Free Text) Assessment: 57 yo female with history of HIV and severe persistent asthma admitted for positive influenza A with dypnea and wheezing. Plan: Flu A Positive - Temperature 100.3F - Tylenol prn for fever - no leukocytosis - tamiflu 75mg bid (Day 1 of 5) - cxray- negative - IVF hydration Asthma - Saturating 98% on 2L NC - Global wheeze on exam. - Magnesium sulfate 2g x1 - Solumedrol 125mg x1 stat - Solumedrol 60mg IVPB starting tomorrow. - Duonebs ATC - Albuterol Q4H PRN - c/w home meds - cxray- no active disease Hyponatremia secondary to dehydration - Bolus 1 L NaCl - NaCl at maintanence fluids @120ml/hr - F/U labs HIV -CD4: 273 (04/09/2018) -%CD4: 20 -Continue home meds: Dolutegravir, Darunavir, Ritonavir, rilpivirine -Bactrim DS 1 tab po HS DVT prophylaxis -SCD's - Ambulation Code status: -Full code Vaccines: -Pneumovax 23 on 08/05/[address] Johan Maldonado MD PGY1 <Lokesh Prado D - Last Filed: 06/04/18 15:46> Results - Vital Signs Recent Vital Signs: Last Vital Signs Temp 100.3 F H 06/04/18 14:05 Pulse 90 06/04/18 14:05 Resp 28 H 06/04/18 14:05 BP 100/55 L 06/04/18 15:18 Pulse Ox 98 06/04/18 14:05 - Labs Result Diagrams: 06/04/18 13:38 06/04/18 13:38 Labs: Laboratory Results - last 24 hr 06/04/18 06/04/18 06/04/18 11:55 13:38 13:38 WBC 5.8 RBC 3.89 Hgb 11.6 L Hct 34.5 MCV 88.5 MCH 29.7 MCHC 33.6 RDW 15.2 H Plt Count 240 MPV 6.9 L Neut % (Auto) 55.7 Lymph % (Auto) 29.7 [place] % (Auto) 13.9 H Eos % (Auto) 0.1 Baso % (Auto) 0.6 Neut # (Auto) 3.2 Lymph # (Auto) 1.7 [place] # (Auto) 0.8 Eos # (Auto) 0.0 Baso # (Auto) 0.0 Sodium 131 L Potassium 3.7 Chloride 95 L Carbon Dioxide 25 Anion Gap 15 BUN 26 H Creatinine 1.7 H Est GFR ( Amer) 38 Est GFR (Non-Af Amer) 31 Random Glucose 105 Calcium 8.8 Total Bilirubin 0.7 AST 51 H D ALT 14 Alkaline Phosphatase 91 Total Protein 8.4 H Albumin 4.1 Globulin 4.3 H Albumin/Globulin Ratio 1.0 Influenza Typ A,B (EIA) Pos for influenza a H Attending/Attestation - Attestation I have personally seen and examined this patient.: Yes I have fully participated in the care of the patient.: Yes I have reviewed all pertinent clinical information: Yes Notes (Text): 06/04/18 15:45 Patient seen and examined with resident. Case discussed and agreed with as sessment and plan of management.
[2018-06-04] MEDS ORDERED: Albuterol HFA 90 mcg/actuation (8 g) INH PRN (14:40)
[2018-06-04] MEDS ORDERED: Albuterol HFA 90 mcg/actuation (8 g) IH PRN (14:42)
[2018-06-04] MEDS ORDERED: Sodium Chloride 0.9% 1,000 ML IV SCH ×2 (14:45)
[2018-06-04] MEDS ORDERED: Magnesium Sulfate 2 gm/50 ml 2 GM/50 ML BAG IV ONE (15:15)
[2018-06-04] MEDS ORDERED: Albuterol-Ipratrop 3 mg / 0.5 (3 ml) UD INH SCH (16:00)
[2018-06-04 17:28] LABS: ABG ALLEN TEST YES; ARTERIAL BLOOD GAS HCO3 24.7 mmol/L (21-28); ARTERIAL BLOOD GAS O2 SAT 98.8 % (95-98); ARTERIAL BLOOD GAS PCO2 38 mm/Hg (35-45); ARTERIAL BLOOD GAS PH 7.41 (7.35-7.45); ARTERIAL BLOOD GAS PO2 86 mm/Hg (80-100); ARTERIAL BLOOD GAS TCO2 25.3 mmol/L (22-28)
[2018-06-04] MEDS ORDERED: Albuterol 0.083% Inhal Sol (2.5 mg/3 mL) UD INH PRN (18:21)
[2018-06-04] MEDS: Albuterol-Ipratrop 3 mg / 0.5 (3 ml) UD INH SCH ×2 (19:00→20:00)
[2018-06-05] MEDS: Albuterol-Ipratrop 3 mg / 0.5 (3 ml) UD INH SCH ×7 (00:52→19:07)
[2018-06-05 07:23] LABS: BASO % 0.4 % (0.0-2.0); HEMOGLOBIN 12.1 g/dL (12.0-16.0); LYMPH # 0.7 K/uL (1.0-4.3); MEAN CELL VOLUME 92.3 fl (81.0-99.0); MEAN CORPUSCULAR HGB CONC 31.4 g/dL (33.0-37.0); MEAN PLATELET VOLUME 7.2 fl (7.2-11.7); MONO # 0.1 K/uL (0.0-0.8); MONO % 4.3 % (0.0-10.0); NEUT # 1.5 K/uL (1.8-7.0); NEUT % 66.3 % (50.0-75.0); NRBC % 0.2 % (0.0-0.0); RBC 4.16 Mil/uL (3.80-5.20); RED CELL DISTRIBUTION WIDTH 15.4 % (11.5-14.5); WHITE BLOOD COUNT 2.3 K/uL (4.8-10.8)
[2018-06-05 07:27] LABS: BLOOD UREA NITROGEN 25 mg/dl (7-17); CALCIUM 9.2 mg/dL (8.4-10.2); GFR NON-AFRICAN AMERICAN 57
[2018-06-05] MEDS: Fluticasone-Salmeterol 100-50mcg Diskus IH SCH (08:50)
[2018-06-05] MEDS: levoFLOXacin 750 MG TAB PO SCH (08:52)
[2018-06-05] MEDS: Tmp-Smz 800 mg-160 mg DS Tab PO SCH (08:52)
[2018-06-05] MEDS: Sodium Chloride 0.9% 1,000 ML IV SCH (08:55)
--- NOTE | 2018-06-05 10:20 | US ---
Date of service: 06/04/2018 PROCEDURE: Bilateral lower extremity venous duplex Doppler. HISTORY: pain, rule out dvt COMPARISON: Right lower extremity venous duplex ultrasound performed 10/23/2017; bilateral lower extremity venous duplex ultrasound performed 04/14/2012. TECHNIQUE: Bilateral common femoral, superficial femoral, popliteal and posterior tibial veins were evaluated. Flow was assessed with color Doppler, compressibility, assessment of phasic flow and augmentation response. FINDINGS: COMMON FEMORAL VEIN: Right CFV: Unremarkable. Left CFV: Unremarkable. SUPERFICIAL FEMORAL VEIN: Right SFV: Unremarkable. Left SFV: Unremarkable. POPLITEAL VEIN: Right Popliteal: Unremarkable. Left Popliteal: Unremarkable. POSTERIOR TIBIAL VEIN: Right PTV: Unremarkable. Left PTV: Unremarkable. OTHER FINDINGS: None. IMPRESSION: No evidence of deep venous thrombosis.
--- NOTE | 2018-06-05 11:06 | CP.PCM.PN ---
Subjective - Date & Time of Evaluation Date of Evaluation: 06/05/18 Time of Evaluation: 10:15 - Subjective Subjective: Patient seen and examined at bedside. Patient is in respiratory distress and coughing. She did not have her oxygen on and reports she went to the bathroom and then sat down on the bed and did not place the oxygen on again. She reports shortness of breath. Denies chest pain, palpitations, fevers, chills, nausea or vomiting. Objective - Vital Signs/Intake and Output Vital Signs (last 24 hours): Temp Pulse Resp BP Pulse Ox 97.9 F 69 20 121/73 99 06/05/18 08:59 06/05/18 08:59 06/05/18 08:59 06/05/18 08:59 06/05/18 08:59 - Medications Medications: Current Medications Acetaminophen (Tylenol 325mg Tab) 650 mg PO Q6 PRN PRN Reason: Fever >100.4 F Acetylcysteine (Mucomyst 10% 4ml) 2 ml IH RBID [facility] Albuterol Sulfate (Albuterol 0.083% Inhal Lily (2.5 Mg/3 Ml) Ud) 2.5 mg INH RQ2 PRN PRN Reason: Shortness of Breath Albuterol/Ipratropium (Duoneb 3 Mg/0.5 Mg (3 Ml) Ud) 3 ml INH RQ4 [facility] Last Admin: 06/05/18 10:46 Dose: 3 ml Darunavir (Prezista) 800 mg PO DAILY [facility]; Protocol Last Admin: 06/05/18 08:54 Dose: 800 mg Dolutegravir Sodium (Tivicay) 50 mg PO DAILY [facility]; Protocol Ferrous Sulfate (Feosol) 325 mg PO DAILY [facility] Last Admin: 06/05/18 08:54 Dose: 325 mg Home Med (Rilpivirine Hcl [Edurant]) 25 mg PO DAILY [facility] Sodium Chloride (Sodium Chloride 0.9%) 1,000 mls @ 100 mls/hr IV .Q10H [facility] Stop: 06/05/18 13:20 Last Admin: 06/05/18 08:55 Dose: 100 mls/hr Levofloxacin (Levaquin) 750 mg PO DAILY [facility]; Protocol Last Admin: 06/05/18 08:52 Dose: 750 mg Methylprednisolone (Solu-Medrol) 60 mg IV Q8 [facility] Montelukast Sodium (Singulair) 10 mg PO HS [facility] Last Admin: 06/04/18 21:19 Dose: 10 mg Oseltamivir Phosphate (Tamiflu Cap) 75 mg PO BID [facility]; Protocol Last Admin: 06/05/18 08:51 Dose: 75 mg Ritonavir (Norvir) 100 mg PO DAILY [facility]; Protocol Last Admin: 06/05/18 08:54 Dose: 100 mg Roflumilast (Daliresp) 500 mcg PO DAILY [facility] Last Admin: 06/05/18 08:54 Dose: 500 mcg Fluticasone/Salmeterol (Advair Diskus 100/50) 1 puff IH Q12 [facility] Last Admin: 06/05/18 08:50 Dose: 1 puff Trimethoprim/Sulfamethoxazole (Bactrim Ds Tab) 1 tab PO DAILY [facility]; Protocol Last Admin: 06/05/18 08:52 Dose: 1 tab - Labs Labs: 06/05/18 06:10 06/05/18 06:10 - Constitutional Appears: Non-toxic, In Acute Distress (Respiratory distress. ) - Eye Exam Eye Exam: Normal appearance - ENT Exam ENT Exam: Mucous Membranes Moist - Respiratory Exam Respiratory Exam: Clear to Ausculation Bilateral, Wheezes (globally wheezing on exam and audible wheezes heard), Respiratory Distress, NORMAL BREATHING PATTERN - Cardiovascular Exam Cardiovascular Exam: REGULAR RHYTHM, +S1, +S2 - GI/Abdominal Exam GI & Abdominal Exam: Soft. absent: Firm, Guarding, Rigid, Tenderness, Rebound - Extremities Exam Extremities Exam: Normal Capillary Refill, Normal Inspection. absent: Pedal Edema, Tenderness - Neurological Exam Neurological Exam: Alert, Awake - Skin Skin Exam: Dry, Intact, Normal Color, Warm Assessment and Plan (1) Asthma Status: Acute (2) Influenza A Status: Acute (3) DVT prophylaxis Status: Chronic - Assessment and Plan (Free Text) Assessment: 57 yo female with history of HIV and severe persistent asthma admitted for positive influenza A with dypnea and wheezing. Plan: Flu A Positive - Tylenol prn for fever - no leukocytosis - tamiflu 75mg bid (Day 2 of 5) - cxray- negative - IVF hydration Asthma - Saturating 99% on 2L NC - Mucomyst - Pulmonoogy consult appreciated- Dr. Yee - Global wheeze on exam. - Solumedrol 60mg IVPB Q6H - Duonebs ATC - Albuterol Q4H PRN - c/w home meds - cxray- no active disease Hyponatremia secondary to dehydration - resolved HIV -CD4: 273 (04/09/2018) -%CD4: 20 -Continue home meds: Dolutegravir, Darunavir, Ritonavir, rilpivirine -Bactrim DS 1 tab po HS Acute Kidney injury - Resolved DVT prophylaxis -SCD's - Ambulation Code status: -Full code
[2018-06-05 16:51] LABS: ABG ALLEN TEST YES; ARTERIAL BLOOD GAS HCO3 21.9 mmol/L (21-28); ARTERIAL BLOOD GAS HEMOGLOBIN 11.1 g/dL (11.7-17.4); ARTERIAL BLOOD GAS O2 CAPACITY 15.5 mL/dL (16-24); ARTERIAL BLOOD GAS O2 CONTENT 15.2 ML/dL (15-23); ARTERIAL BLOOD GAS O2 SAT 98.2 % (95-98); ARTERIAL BLOOD GAS PCO2 35 mm/Hg (35-45); ARTERIAL BLOOD GAS PH 7.38 (7.35-7.45); ARTERIAL BLOOD GAS PO2 97 mm/Hg (80-100); ARTERIAL BLOOD GAS TCO2 21.8 mmol/L (22-28)
[2018-06-05] MEDS ORDERED: methylPREDNISolone 60 MG in Sodium Chloride 0.9% 50 ML IVPB SCH (17:00)
[2018-06-05] MEDS: Acetylcysteine 10% 4 ML IH SCH (19:07)
[2018-06-06] MEDS: Albuterol-Ipratrop 3 mg / 0.5 (3 ml) UD INH SCH ×6 (00:12→19:20)
[2018-06-06] MEDS: Sodium Chloride 0.9% 1,000 ML IV SCH ×3 (02:35→23:10)
[2018-06-06 06:24] LABS: HEMOGLOBIN 11.3 g/dL (12.0-16.0); MEAN CELL VOLUME 88.8 fl (81.0-99.0); MEAN CORPUSCULAR HGB CONC 32.7 g/dL (33.0-37.0); RBC 3.9 Mil/uL (3.80-5.20); RED CELL DISTRIBUTION WIDTH 15.2 % (11.5-14.5)
[2018-06-06 06:49] LABS: BLOOD UREA NITROGEN 19 mg/dl (7-17); GFR NON-AFRICAN AMERICAN > 60
[2018-06-06] MEDS: Acetylcysteine 10% 4 ML IH SCH ×2 (07:49→19:20)
[2018-06-06] MEDS ORDERED: methylPREDNISolone 40 MG in Sodium Chloride 0.9% 50 ML IV SCH (09:00)
--- NOTE | 2018-06-06 09:02 | CP.PCM.DIS ---
Provider - Provider Date of Admission: 06/04/18 13:55 Attending physician: Lokesh Prdao MD Primary care physician: Dr. Merlin Yin Consults: 06/05/18 10:29 Pulmonology Consult Routine Comment: Consulting Provider: Alen Yee I Consulting Physician: Alen Yee I Reason for Consult: Influenza + and severe persistant asthma Time Spent in preparation of Discharge (in minutes): 30 Diagnosis - Discharge Diagnosis (1) Severe persistent asthma Status: Acute (2) Influenza A Status: Acute (3) HIV disease Status: Acute (4) DVT prophylaxis Status: Chronic Hospital Course - Lab Results Lab Results: Micro Results 06/04/18 13:38 Blood-Venous Blood Culture - Preliminary NO GROWTH AFTER 24 HOURS Most Recent Lab Values WBC 8.0 K/uL (4.8-10.8) D 06/06/18 05:50 RBC 3.90 Mil/uL (3.80-5.20) 06/06/18 05:50 Hgb 11.3 g/dL (12.0-16.0) L 06/06/18 05:50 Hct 34.6 % (34.0-47.0) 06/06/18 05:50 MCV 88.8 fl (81.0-99.0) D 06/06/18 05:50 MCH 29.0 pg (27.0-31.0) 06/06/18 05:50 MCHC 32.7 g/dL (33.0-37.0) L 06/06/18 05:50 RDW 15.2 % (11.5-14.5) H 06/06/18 05:50 Plt Count 250 K/uL (130-400) 06/06/18 05:50 MPV 7.2 fl (7.2-11.7) 06/05/18 06:10 Neut % (Auto) 66.3 % (50.0-75.0) 06/05/18 06:10 Lymph % (Auto) 29.0 % (20.0-40.0) 06/05/18 06:10 Mcclain % (Auto) 4.3 % (0.0-10.0) 06/05/18 06:10 Eos % (Auto) 0.0 % (0.0-4.0) 06/05/18 06:10 Baso % (Auto) 0.4 % (0.0-2.0) 06/05/18 06:10 Neut # (Auto) 1.5 K/uL (1.8-7.0) L 06/05/18 06:10 Lymph # (Auto) 0.7 K/uL (1.0-4.3) L 06/05/18 06:10 Mcclain # (Auto) 0.1 K/uL (0.0-0.8) 06/05/18 06:10 Eos # (Auto) 0.0 K/uL (0.0-0.7) 06/05/18 06:10 Baso # (Auto) 0.0 K/uL (0.0-0.2) 06/05/18 06:10 pCO2 35 mm/Hg (35-45) 06/05/18 16:49 pO2 97 mm/Hg (80-100) 06/05/18 16:49 HCO3 21.9 mmol/L (21-28) 06/05/18 16:49 ABG pH 7.38 (7.35-7.45) 06/05/18 16:49 ABG Total CO2 21.8 mmol/L (22-28) L 06/05/18 16:49 ABG O2 Saturation 98.2 % (95-98) H 06/05/18 16:49 ABG O2 Content 15.2 ML/dL (15-23) 06/05/18 16:49 ABG Base Excess -3.9 mmol/L (-2.0-3.0) L 06/05/18 16:49 ABG Hemoglobin 11.1 g/dL (11.7-17.4) L 06/05/18 16:49 ABG Carboxyhemoglobin 0.5 % (0.5-1.5) 06/05/18 16:49 POC ABG HHb (Measured) 1.8 % (0.0-5.0) 06/05/18 16:49 ABG Methemoglobin 1.3 % (0.0-3.0) 06/05/18 16:49 ABG O2 Capacity 15.5 mL/dL (16-24) L 06/05/18 16:49 Darryl Test Yes 06/05/18 16:49 ABG Potassium 3.7 mmol/L (3.6-5.2) 06/04/18 17:21 A-a O2 Difference 59.0 mm/Hg 06/05/18 16:49 Hgb O2 Saturation 96.5 % (95.0-98.0) 06/05/18 16:49 Sodium 135.0 mmol/L (132-148) 06/04/18 17:21 Chloride 104.0 mmol/L (98-107) 06/04/18 17:21 Glucose 125 mg/dL (65-105) H 06/04/18 17:21 Lactate 0.8 mmol/L (0.7-2.1) 06/04/18 17:21 Vent Mode N/c 06/05/18 16:49 FiO2 28.0 % 06/05/18 16:49 Sodium 139 mmol/l (132-148) 06/06/18 05:50 Potassium 3.8 MMOL/L (3.6-5.0) 06/06/18 05:50 Chloride 109 mmol/L (98-107) H 06/06/18 05:50 Carbon Dioxide 23 mmol/L (22-30) 06/06/18 05:50 Anion Gap 11 (10-20) 06/06/18 05:50 BUN 19 mg/dl (7-17) H 06/06/18 05:50 Creatinine 0.9 mg/dl (0.7-1.2) 06/06/18 05:50 Est GFR ( Amer) > 60 06/06/18 05:50 Est GFR (Non-Af Amer) > 60 06/06/18 05:50 Random Glucose 185 mg/dL (65-105) H 06/06/18 05:50 Calcium 9.0 mg/dL (8.4-10.2) 06/06/18 05:50 Total Bilirubin 0.7 mg/dl (0.2-1.3) 06/04/18 13:38 AST 51 U/L (14-36) H D 06/04/18 13:38 ALT 14 U/L (9-52) 06/04/18 13:38 Alkaline Phosphatase 91 U/L (38-126) 06/04/18 13:38 Total Protein 8.4 G/DL (6.3-8.2) H 06/04/18 13:38 Albumin 4.1 g/dL (3.5-5.0) 06/04/18 13:38 Globulin 4.3 gm/dL (2.2-3.9) H 06/04/18 13:38 Albumin/Globulin Ratio 1.0 (1.0-2.1) 06/04/18 13:38 Arterial Blood Potassium 3.7 mmol/L (3.6-5.2) 06/04/18 17:21 Influenza Typ A,B (EIA) Pos for influenza a (NEGATIVE) H 06/04/18 11:55 Discharge Exam - Head Exam Head Exam: NORMAL INSPECTION - Eye Exam Eye Exam: Normal appearance - ENT Exam ENT Exam: Mucous Membranes Moist - Respiratory Exam Respiratory Exam: Wheezes (Global wheeze (Patient's baseline)). absent: Accessory Muscle Use, Chest Wall Tenderness, Decreased Breath Sounds, Prolonged Expiratory Phase, Rales, Rhonchi, Respiratory Distress, Stridor - Cardiovascular Exam Cardiovascular Exam: Tachycardia, REGULAR RHYTHM, +S1, +S2 - GI/Abdominal Exam GI & Abdominal Exam: Normal Bowel Sounds, Soft, Unremarkable. absent: Distended, Firm, Guarding, Rebound, Rigid, Tenderness - Extremities Exam Extremities exam: normal capillary refill, normal inspection, pedal pulses pre sent - Neurological Exam Neurological exam: Alert, Oriented x3 - Psychiatric Exam Psychiatric exam: Normal Affect, Normal Mood - Skin Skin Exam: Dry, Intact, Normal Color, Warm Discharge Plan - Follow Up Plan Condition: GOOD Disposition: HOME/ ROUTINE Instructions: Asthma, Adult (DC), Flu, Adult (DC) Additional Instructions: follow up with your primary MD 1 week Referrals: Yris Boyer MD [Medical Doctor] - Alen Yee MD [Staff Provider] -
[2018-06-06] MEDS: Fluticasone-Salmeterol 100-50mcg Diskus IH SCH ×3 (09:05→21:24)
[2018-06-06] MEDS: levoFLOXacin 750 MG TAB PO SCH (09:05)
[2018-06-06] MEDS: Tmp-Smz 800 mg-160 mg DS Tab PO SCH (09:06)
[2018-06-06] MEDS: MethylPREDNISolone 40 mg Vial IVP SCH (09:15)
--- NOTE | 2018-06-06 11:39 | CP.PCM.PN ---
Subjective - Date & Time of Evaluation Date of Evaluation: 06/06/18 Time of Evaluation: 10:00 - Subjective Subjective: Patient seen and examined at bedside. No overnight events. Patient afebrile and saturating 100% on room air. She is still coughing but reports feeling much better and is able to breathe better. She denies shortness of breath, chest pain, palpitations, fevers, chills, nausea or vomiting. Objective - Vital Signs/Intake and Output Vital Signs (last 24 hours): Temp Pulse Resp BP Pulse Ox 97.7 F 120 H 20 118/73 100 06/06/18 08:15 06/06/18 08:15 06/06/18 08:15 06/06/18 08:15 06/06/18 08:15 - Medications Medications: Current Medications Acetaminophen (Tylenol 325mg Tab) 650 mg PO Q6 PRN PRN Reason: Fever >100.4 F Acetaminophen (Tylenol 325mg Tab) 650 mg PO Q4 PRN PRN Reason: Headache Last Admin: 06/05/18 21:42 Dose: 650 mg Acetylcysteine (Mucomyst 10% 4ml) 2 ml IH RBID [facility] Last Admin: 06/06/18 07:49 Dose: 2 ml Albuterol Sulfate (Albuterol 0.083% Inhal Lily (2.5 Mg/3 Ml) Ud) 2.5 mg INH RQ2 PRN PRN Reason: Shortness of Breath Albuterol/Ipratropium (Duoneb 3 Mg/0.5 Mg (3 Ml) Ud) 3 ml INH RQ4 [facility] Last Admin: 06/06/18 11:24 Dose: 3 ml Darunavir (Prezista) 800 mg PO DAILY [facility]; Protocol Last Admin: 06/06/18 09:05 Dose: 800 mg Dolutegravir Sodium (Tivicay) 50 mg PO DAILY [facility]; Protocol Ferrous Sulfate (Feosol) 325 mg PO DAILY [facility] Last Admin: 06/06/18 09:06 Dose: 325 mg Home Med (Rilpivirine Hcl [Edurant]) 25 mg PO DAILY [facility] Sodium Chloride (Sodium Chloride 0.9%) 1,000 mls @ 100 mls/hr IV .Q10H [facility] Stop: 06/07/18 02:28 Last Admin: 06/06/18 02:35 Dose: 100 mls/hr Levofloxacin (Levaquin) 750 mg PO DAILY [facility]; Protocol Last Admin: 06/06/18 09:05 Dose: 750 mg Methylprednisolone (Solu-Medrol) 40 mg IVP Q8 [facility] Last Admin: 06/06/18 09:15 Dose: 40 mg Montelukast Sodium (Singulair) 10 mg PO HS [facility] Last Admin: 06/05/18 21:22 Dose: 10 mg Oseltamivir Phosphate (Tamiflu Cap) 75 mg PO BID [facility]; Protocol Last Admin: 06/06/18 09:05 Dose: 75 mg Ritonavir (Norvir) 100 mg PO DAILY [facility]; Protocol Last Admin: 06/06/18 09:06 Dose: 100 mg Roflumilast (Daliresp) 500 mcg PO DAILY [facility] Last Admin: 06/06/18 09:06 Dose: 500 mcg Fluticasone/Salmeterol (Advair Diskus 100/50) 1 puff IH Q12 [facility] Last Admin: 06/06/18 09:05 Dose: 1 puff Trimethoprim/Sulfamethoxazole (Bactrim Ds Tab) 1 tab PO DAILY [facility]; Protocol Last Admin: 06/06/18 09:06 Dose: 1 tab - Labs Labs: 06/06/18 05:50 06/06/18 05:50 - Constitutional Appears: Non-toxic, No Acute Distress - Eye Exam Eye Exam: Normal appearance - ENT Exam ENT Exam: Mucous Membranes Moist - Respiratory Exam Respiratory Exam: Clear to Ausculation Bilateral, Wheezes (Global wheeze), NORMAL BREATHING PATTERN. absent: Accessory Muscle Use, Chest Wall Tenderness, Decreased Breath Sounds, Prolonged Expiratory Phase, Rales, Rhonchi, Respiratory Distress, Stridor - Cardiovascular Exam Cardiovascular Exam: REGULAR RHYTHM, RRR, +S1, +S2. absent: JVD, Murmur - GI/Abdominal Exam GI & Abdominal Exam: Soft, Normal Bowel Sounds. absent: Distended, Firm, Guarding, Rigid, Tenderness, Rebound - Extremities Exam Extremities Exam: Normal Capillary Refill, Normal Inspection. absent: Calf Tenderness, Pedal Edema, Tenderness - Neurological Exam Neurological Exam: Alert, Awake Neuro motor strength exam: Left Upper Extremity: 5, Right Upper Extremity: 5, Left Lower Extremity: 5, Right Lower Extremity: 5 - Skin Skin Exam: Dry, Intact, Normal Color, Warm Assessment and Plan (1) Severe persistent asthma Status: Acute (2) Influenza A Status: Acute (3) HIV disease Status: Acute (4) DVT prophylaxis Status: Chronic - Assessment and Plan (Free Text) Assessment: 57 yo female with history of HIV and severe persistent asthma admitted for positive influenza A with dypnea and wheezing. Plan: Flu A Positive - Tylenol prn for fever - no leukocytosis - tamiflu 75mg bid (Day 3 of 5) - cxray- negative - IVF hydration Asthma - Saturating 99% on 2L NC - Mucomyst - Pulmonology consult appreciated- Dr. Yee- continue antibiotic, steroids, antitussive and f/u sputum culture. - Global wheeze on exam. - Solumedrol 60mg IVPB Q6H - Duonebs ATC - Albuterol Q4H PRN - c/w home meds - cxray- no active disease Hyponatremia secondary to dehydration - resolved HIV -CD4: 273 (04/09/2018) -%CD4: 20 -Continue home meds: Dolutegravir, Darunavir, Ritonavir, rilpivirine -Bactrim DS 1 tab po HS Acute Kidney injury - Resolved DVT prophylaxis -SCD's - Ambulation Code status: -Full code
[2018-06-06] MEDS: Patient's Own Med(TIVICAY 50MG) PO SCH (13:47)
[2018-06-06] MEDS: RILPIVIRINE HCL 25 MG PO SCH (13:49)
--- NOTE | 2018-06-06 13:52 | CP.PCM.CON ---
History of Present Illness - History of Present Illness History of Present Illness: 57 YR BOLD FEMALE ADMITTED BECAUSE OF SHORTNESS OF BREATH,COUGH,WHEEZING AND CHEST TIGHJTNESS X SEVERAL DAYS SHE WAS DIAGNOSED WITH INFLUENZA SHE IS STILL DYSPNEIC AT REST AND PERSISTENTLY COUGHING DURING EXAM SHE HAS A HISTORY OF CHRONIC PERSISTENT ASTHMA,BRONCHIECTASES AND HIV DZ SHE DENIES SMOKING OR DRUG/ALCOHOL USE Past Patient History - Infectious Disease Hx of Infectious Diseases: None - Past Medical History & Family History Past Medical History?: Yes - Past Social History Smoking Status: Never Smoked - CARDIAC Hx Congestive Heart Failure: No Hx Hypercholesterolemia: No Hx Hypertension: No - PULMONARY Hx Asthma: Yes Hx Bronchitis: Yes Hx Chronic Obstructive Pulmonary Disease (COPD): Yes Hx Pneumonia: Yes - NEUROLOGICAL Hx Neurological Disorder: No (trigeminal neuralgia) - HEENT Hx HEENT Problems: No - RENAL Hx Chronic Kidney Disease: No - ENDOCRINE/METABOLIC Hx Hypothyroidism: No - HEMATOLOGICAL/ONCOLOGICAL Hx AIDS: No Hx Human Immunodeficiency Virus (HIV): Yes - INTEGUMENTARY Hx Dermatological Problems: Yes - MUSCULOSKELETAL/RHEUMATOLOGICAL Hx Falls: No - GASTROINTESTINAL Hx Gastrointestinal Disorders: No - GENITOURINARY/GYNECOLOGICAL Hx Genitourinary Disorders: No - PSYCHIATRIC Hx Substance Use: No - SURGICAL HISTORY Hx Surgeries: Yes Hx Cholecystectomy: Yes Other/Comment: Removal of left ovary - ANESTHESIA Hx Anesthesia: Yes Hx Anesthesia Reactions: No Hx Malignant Hyperthermia: No Meds Allergies/Adverse Reactions: Allergies Allergy/AdvReac Type Severity Reaction Status Date / Time procaine HCl [From Novocain] Allergy RASH Verified 06/04/18 10:58 shrimp Allergy RASH Verified 06/04/18 10:58 - Medications Medications: Current Medications Acetaminophen (Tylenol 325mg Tab) 650 mg PO Q6 PRN PRN Reason: Fever >100.4 F Acetaminophen (Tylenol 325mg Tab) 650 mg PO Q4 PRN PRN Reason: Headache Last Admin: 06/05/18 21:42 Dose: 650 mg Acetylcysteine (Mucomyst 10% 4ml) 2 ml IH RBID [facility] Last Admin: 06/06/18 07:49 Dose: 2 ml Albuterol Sulfate (Albuterol 0.083% Inhal Lily (2.5 Mg/3 Ml) Ud) 2.5 mg INH RQ2 PRN PRN Reason: Shortness of Breath Albuterol/Ipratropium (Duoneb 3 Mg/0.5 Mg (3 Ml) Ud) 3 ml INH RQ4 [facility] Last Admin: 06/06/18 11:24 Dose: 3 ml Darunavir (Prezista) 800 mg PO DAILY [facility]; Protocol Last Admin: 06/06/18 09:05 Dose: 800 mg Ferrous Sulfate (Feosol) 325 mg PO DAILY [facility] Last Admin: 06/06/18 09:06 Dose: 325 mg Home Med (Patient's Own Medication) 1 unit PO DAILY [facility]; Protocol Home Med (Rilpivirine Hcl [Edurant]) 25 mg PO DAILY [facility] Sodium Chloride (Sodium Chloride 0.9%) 1,000 mls @ 100 mls/hr IV .Q10H [facility] Stop: 06/07/18 02:28 Last Admin: 06/06/18 02:35 Dose: 100 mls/hr Levofloxacin (Levaquin) 750 mg PO DAILY [facility]; Protocol Last Admin: 06/06/18 09:05 Dose: 750 mg Methylprednisolone (Solu-Medrol) 40 mg IVP Q8 [facility] Last Admin: 06/06/18 09:15 Dose: 40 mg Montelukast Sodium (Singulair) 10 mg PO HS [facility] Last Admin: 06/05/18 21:22 Dose: 10 mg Oseltamivir Phosphate (Tamiflu Cap) 75 mg PO BID [facility]; Protocol Last Admin: 06/06/18 09:05 Dose: 75 mg Ritonavir (Norvir) 100 mg PO DAILY [facility]; Protocol Last Admin: 06/06/18 09:06 Dose: 100 mg Roflumilast (Daliresp) 500 mcg PO DAILY [facility] Last Admin: 06/06/18 09:06 Dose: 500 mcg Fluticasone/Salmeterol (Advair Diskus 100/50) 1 puff IH Q12 [facility] Last Admin: 06/06/18 09:05 Dose: 1 puff Trimethoprim/Sulfamethoxazole (Bactrim Ds Tab) 1 tab PO DAILY [facility]; Protocol Last Admin: 06/06/18 09:06 Dose: 1 tab Physical Exam - Constitutional Appears: Well, In Acute Distress, Chronically Ill Additional comments: COUGHING AND DYSPNEIC - Head Exam Head Exam: ATRAUMATIC, NORMAL INSPECTION, NORMOCEPHALIC - Eye Exam Eye Exam: EOMI, Normal appearance, PERRL Pupil Exam: NORMAL ACCOMODATION, PERRL - ENT Exam ENT Exam: Mucous Membranes Moist, Normal Exam - Neck Exam Neck exam: Positive for: Normal Inspection - Respiratory Exam Respiratory Exam: Decreased Breath Sounds, Prolonged Expiratory Phase, Rales, Wheezes, Respiratory Distress - Cardiovascular Exam Cardiovascular Exam: REGULAR RHYTHM - GI/Abdominal Exam GI & Abdominal Exam: Normal Bowel Sounds, Soft. absent: Tenderness - Rectal Exam Rectal Exam: NORMAL INSPECTION - Extremities Exam Extremities exam: Positive for: normal inspection - Back Exam Back exam: NORMAL INSPECTION - Neurological Exam Neurological exam: Alert, CN II-XII Intact, Normal Gait, Oriented x3, Reflexes Normal - Psychiatric Exam Psychiatric exam: Normal Affect, Normal Mood - Skin Skin Exam: Dry, Intact, Normal Color, Warm Results - Vital Signs Recent Vital Signs: Last Vital Signs Temp 97.7 F 06/06/18 08:15 Pulse 120 H 06/06/18 08:15 Resp 20 06/06/18 08:15 BP 118/73 06/06/18 08:15 Pulse Ox 100 06/06/18 08:15 - Labs Result Diagrams: 06/06/18 05:50 06/06/18 05:50 Labs: Laboratory Results - last 24 hr 06/05/18 06/06/18 06/06/18 16:49 05:50 05:50 WBC 8.0 D RBC 3.90 Hgb 11.3 L Hct 34.6 MCV 88.8 D MCH 29.0 MCHC 32.7 L RDW 15.2 H Plt Count 250 pCO2 35 pO2 97 HCO3 21.9 ABG pH 7.38 ABG Total CO2 21.8 L ABG O2 Saturation 98.2 H ABG O2 Content 15.2 ABG Base Excess -3.9 L ABG Hemoglobin 11.1 L ABG Carboxyhemoglobin 0.5 POC ABG HHb (Measured) 1.8 ABG Methemoglobin 1.3 ABG O2 Capacity 15.5 L Darryl Test Yes A-a O2 Difference 59.0 Hgb O2 Saturation 96.5 Vent Mode N/c FiO2 28.0 Sodium 139 Potassium 3.8 Chloride 109 H Carbon Dioxide 23 Anion Gap 11 BUN 19 H Creatinine 0.9 Est GFR ( Amer) > 60 Est GFR (Non-Af Amer) > 60 Random Glucose 185 H Calcium 9.0 Assessment & Plan - Assessment and Plan (Free Text) Assessment: ACUTE EXAC OF ASTHMA BRONCHIECTASES MUCUS PLUGGING OF AIRWAYS HX OF HIV DZ FLU Plan: BRONCHODILATOR,STEROIDS AND ANTIBIOTIC RX ANTITUSSIVES SPUTUM CULTURE WILL CONTINUE TO FOLLOW WITH YOU - Date & Time Date: 06/06/18 Time: 13:55
[2018-06-06] MEDS ORDERED: Promethazine/Cod 6.25mg-10mg/5ml Syr UD PO PRN (13:57)
[2018-06-06] MEDS ORDERED: Sodium Chloride 3% for Inhalation 4 ML VIAL.NEB IH PRN (13:57)
[2018-06-07] MEDS: MethylPREDNISolone 40 mg Vial IVP SCH ×2 (00:24→09:07)
[2018-06-07] MEDS: Sodium Chloride 0.9% 1,000 ML IV SCH ×3 (00:38→13:39)
[2018-06-07] MEDS: Albuterol-Ipratrop 3 mg / 0.5 (3 ml) UD INH SCH ×4 (00:39→11:44)
[2018-06-07] MEDS: Acetylcysteine 10% 4 ML IH SCH (07:52)
[2018-06-07 08:39] VITALS: BP 151/86; PULSE 62; RESP 20; TEMP 97.9; O2SAT 97
[2018-06-07] MEDS: Fluticasone-Salmeterol 100-50mcg Diskus IH SCH (09:04)
[2018-06-07] MEDS: Tmp-Smz 800 mg-160 mg DS Tab PO SCH (09:04)
[2018-06-07] MEDS: RILPIVIRINE HCL 25 MG PO SCH (09:06)
[2018-06-07] MEDS: levoFLOXacin 750 MG TAB PO SCH (09:06)
[2018-06-07] MEDS: Patient's Own Med(TIVICAY 50MG) PO SCH (09:12)
--- NOTE | 2018-06-07 09:42 | CP.PCM.DIS ---
Provider - Provider Date of Admission: 06/04/18 13:55 Attending physician: Lokesh Prado MD Consults: 06/05/18 10:29 Pulmonology Consult Routine Comment: Consulting Provider: Alen Yee I Consulting Physician: Alen Yee I Reason for Consult: Influenza + and severe persistant asthma Time Spent in preparation of Discharge (in minutes): 35 Diagnosis - Discharge Diagnosis (1) Asthma exacerbation Status: Chronic (2) HIV disease Status: Chronic Hospital Course - Lab Results Lab Results: Micro Results 06/04/18 13:38 Blood-Venous Blood Culture - Preliminary NO GROWTH AFTER 48 HOURS Most Recent Lab Values WBC 8.0 K/uL (4.8-10.8) D 06/06/18 05:50 RBC 3.90 Mil/uL (3.80-5.20) 06/06/18 05:50 Hgb 11.3 g/dL (12.0-16.0) L 06/06/18 05:50 Hct 34.6 % (34.0-47.0) 06/06/18 05:50 MCV 88.8 fl (81.0-99.0) D 06/06/18 05:50 MCH 29.0 pg (27.0-31.0) 06/06/18 05:50 MCHC 32.7 g/dL (33.0-37.0) L 06/06/18 05:50 RDW 15.2 % (11.5-14.5) H 06/06/18 05:50 Plt Count 250 K/uL (130-400) 06/06/18 05:50 MPV 7.2 fl (7.2-11.7) 06/05/18 06:10 Neut % (Auto) 66.3 % (50.0-75.0) 06/05/18 06:10 Lymph % (Auto) 29.0 % (20.0-40.0) 06/05/18 06:10 [place] % (Auto) 4.3 % (0.0-10.0) 06/05/18 06:10 Eos % (Auto) 0.0 % (0.0-4.0) 06/05/18 06:10 Baso % (Auto) 0.4 % (0.0-2.0) 06/05/18 06:10 Neut # (Auto) 1.5 K/uL (1.8-7.0) L 06/05/18 06:10 Lymph # (Auto) 0.7 K/uL (1.0-4.3) L 06/05/18 06:10 [place] # (Auto) 0.1 K/uL (0.0-0.8) 06/05/18 06:10 Eos # (Auto) 0.0 K/uL (0.0-0.7) 06/05/18 06:10 Baso # (Auto) 0.0 K/uL (0.0-0.2) 06/05/18 06:10 pCO2 35 mm/Hg (35-45) 06/05/18 16:49 pO2 97 mm/Hg (80-100) 06/05/18 16:49 HCO3 21.9 mmol/L (21-28) 06/05/18 16:49 ABG pH 7.38 (7.35-7.45) 06/05/18 16:49 ABG Total CO2 21.8 mmol/L (22-28) L 06/05/18 16:49 ABG O2 Saturation 98.2 % (95-98) H 06/05/18 16:49 ABG O2 Content 15.2 ML/dL (15-23) 06/05/18 16:49 ABG Base Excess -3.9 mmol/L (-2.0-3.0) L 06/05/18 16:49 ABG Hemoglobin 11.1 g/dL (11.7-17.4) L 06/05/18 16:49 ABG Carboxyhemoglobin 0.5 % (0.5-1.5) 06/05/18 16:49 POC ABG HHb (Measured) 1.8 % (0.0-5.0) 06/05/18 16:49 ABG Methemoglobin 1.3 % (0.0-3.0) 06/05/18 16:49 ABG O2 Capacity 15.5 mL/dL (16-24) L 06/05/18 16:49 Darryl Test Yes 06/05/18 16:49 ABG Potassium 3.7 mmol/L (3.6-5.2) 06/04/18 17:21 A-a O2 Difference 59.0 mm/Hg 06/05/18 16:49 Hgb O2 Saturation 96.5 % (95.0-98.0) 06/05/18 16:49 Sodium 135.0 mmol/L (132-148) 06/04/18 17:21 Chloride 104.0 mmol/L (98-107) 06/04/18 17:21 Glucose 125 mg/dL (65-105) H 06/04/18 17:21 Lactate 0.8 mmol/L (0.7-2.1) 06/04/18 17:21 Vent Mode N/c 06/05/18 16:49 FiO2 28.0 % 06/05/18 16:49 Sodium 139 mmol/l (132-148) 06/06/18 05:50 Potassium 3.8 MMOL/L (3.6-5.0) 06/06/18 05:50 Chloride 109 mmol/L (98-107) H 06/06/18 05:50 Carbon Dioxide 23 mmol/L (22-30) 06/06/18 05:50 Anion Gap 11 (10-20) 06/06/18 05:50 BUN 19 mg/dl (7-17) H 06/06/18 05:50 Creatinine 0.9 mg/dl (0.7-1.2) 06/06/18 05:50 Est GFR ( Amer) > 60 06/06/18 05:50 Est GFR (Non-Af Amer) > 60 06/06/18 05:50 Random Glucose 185 mg/dL (65-105) H 06/06/18 05:50 Calcium 9.0 mg/dL (8.4-10.2) 06/06/18 05:50 Total Bilirubin 0.7 mg/dl (0.2-1.3) 06/04/18 13:38 AST 51 U/L (14-36) H D 06/04/18 13:38 ALT 14 U/L (9-52) 06/04/18 13:38 Alkaline Phosphatase 91 U/L (38-126) 06/04/18 13:38 Total Protein 8.4 G/DL (6.3-8.2) H 06/04/18 13:38 Albumin 4.1 g/dL (3.5-5.0) 06/04/18 13:38 Globulin 4.3 gm/dL (2.2-3.9) H 06/04/18 13:38 Albumin/Globulin Ratio 1.0 (1.0-2.1) 06/04/18 13:38 Procalcitonin < 0.05 NG/ML (0.19-0.49) L 06/06/18 18:00 Arterial Blood Potassium 3.7 mmol/L (3.6-5.2) 06/04/18 17:21 Influenza Typ A,B (EIA) Pos for influenza a (NEGATIVE) H 06/04/18 11:55 - Hospital Course Hospital Course: 57 yo female with history of HIV and severe persistent asthma admitted for asthma exacerbation secondary to Flu (Influenza A positive) and acute kidney injury likely from dehydration. Pt was afebrile with no leukocytosis. Cxray did not show any infiltrates. Pulmonology was consulted, Dr. Yee. She was treated with Levofloxacin, Tamiflu, IV steroids, cough suppressant/mucolytic and scheduled bronchodilator treatements. She was also given IV fluids until her kidney function returned to normal. She was evaluated this morning and her respiratory status improved to baseline w/ no use of accessory muscles to breath, she was saturating a 97-100% n 2 L O2 (home O2 dose). Pt was cleared for discharge home with close follow up at [facility] with Dr. Boyer and Dr. Yee within 1-2 weeks. Was sent home to complete 5 days course of Tamiflu, Levofloxacin and cough suppressant. Left message on [facility] answering service for pt to be scheduled for f/u within 1 week. Discuss[address] case with Dr. Bolanos Discharge Exam - Head Exam Head Exam: ATRAUMATIC, NORMAL INSPECTION, NORMOCEPHALIC - Eye Exam Eye Exam: Normal appearance - ENT Exam ENT Exam: Mucous Membranes Moist - Neck Exam Neck exam: Full Rom - Respiratory Exam Respiratory Exam: Decreased Breath Sounds, Rhonchi (scattered), Wheezes (scatttered, moderate). absent: Accessory Muscle Use, Chest Wall Tenderness, Rales, Respiratory Distress - Cardiovascular Exam Cardiovascular Exam: REGULAR RHYTHM, +S1, +S2. absent: Systolic Murmur - GI/Abdominal Exam GI & Abdominal Exam: Normal Bowel Sounds, Soft. absent: Tenderness - Extremities Exam Extremities exam: normal inspection - Neurological Exam Neurological exam: Alert, Oriented x3 - Psychiatric Exam Psychiatric exam: Normal Affect - Skin Skin Exam: Normal Color Discharge Plan - Discharge Medications Prescriptions: levoFLOXacin [Levaquin] 750 mg PO DAILY 2 Days #2 tab Oseltamivir Phosphate [Tamiflu] 75 mg PO BID 2 Days #4 capsule Promethazine/Codeine [Phenergan/Codeine Oral Syrup] 10 ml PO Q6 PRN #200 ml PRN Reason: Cough - Follow Up Plan Condition: GOOD Disposition: HOME/ ROUTINE Instructions: Asthma, Adult (DC), Flu, Adult (DC) Additional Instructions: follow up with your primary MD 1 week Referrals: Yris Boyer MD [Medical Doctor] - Alen Yee MD [Staff Provider] -
== END 2018-06-07 14:31 | disposition home or self-care (01) | DRG 202 ==
LOC: H.ER 10:15 → H.ERHOLD 13:55 → H.MEDSURG1 17:34
PROC: 3E0F7GC Introduction of Other Therapeutic Substance into Respiratory Tract, Via Natural or Artificial Opening (ICD-10-PCS; principal; 2018-06-04)
DX: J45.51 Severe persistent asthma with (acute) exacerbation (principal); N17.9 Acute kidney failure, unspecified; J10.1 Influenza due to other identified influenza virus with other respiratory manifestations; Z21 Asymptomatic human immunodeficiency virus [HIV] infection status; Z85.3 Personal history of malignant neoplasm of breast; Z83.3 Family history of diabetes mellitus; J44.9 Chronic obstructive pulmonary disease, unspecified; T17.990A Other foreign object in respiratory tract, part unspecified in causing asphyxiation, initial encounter; Z87.01 Personal history of pneumonia (recurrent); Z90.49 Acquired absence of other specified parts of digestive tract; Z99.81 Dependence on supplemental oxygen; D64.9 Anemia, unspecified; E86.0 Dehydration; G51.0 Bell's palsy; J40 Bronchitis, not specified as acute or chronic; L30.9 Dermatitis, unspecified; Z79.899 Other long term (current) drug therapy; R06.03 Acute respiratory distress